=== PATIENT | male | born 1950 | race Caucasian/White ===

== ENCOUNTER 2019-11-09 13:09 | Inpatient (IN) | payer OTHER, MEDICARE ==
[~2019-11-09] VITALS: Ht 182.9 cm; Wt 80.7 kg
[2019-11-09 13:11] VITALS: BP 113/63
[2019-11-09 13:24] LABS: ABSOLUTE NEUTROPHILS 4.2 thou/uL (1.4-8.2); BASOPHILS 0.7 % (0.0-2.0); EOSINOPHILS 8.1 % (0.0-3.0); HEMATOCRIT 39.7 % (42.0-52.0); LYMPHOCYTES 16.3 % (24.0-44.0); MCH 29.4 pg (26.0-34.0); MCHC 32.8 g/dL (28.0-37.0); MCV 89.7 fL (80.0-100.0); MONOCYTES 5.8 % (1.0-8.0); PLATELET COUNT 188 thou/uL (150-400); POLYS 69.1 % (36.0-66.0); RBC 4.42 mil/uL (4.50-6.00); RDW 14.6 % (10.5-14.5); WBC 6.1 thou/uL (4.0-11.0)
[2019-11-09 13:35] LABS: URINE BILIRUBIN NEGATIVE (Negative); URINE BLOOD NEGATIVE (Negative); URINE CLARITY CLEAR; URINE COLOR YELLOW; URINE GLUCOSE-RANDOM* NEGATIVE (Negative); URINE KETONES TRACE (Negative); URINE LEUKOCYTES-REFLEX NEGATIVE (Negative); URINE NITRITE-REFLEX NEGATIVE (Negative); URINE PROTEIN (DIPSTICK) NEGATIVE (Negative); URINE SPECIFIC GRAVITY 1.025 (1.005-1.035); URINE UROBILINOGEN 0.2 E.U./dl (0.2-1.0)
[2019-11-09 13:38] LABS: ANION GAP 8 mmol/L (7-16); BUN 28 mg/dL (7-18); CALCIUM 9.1 mg/dL (8.5-10.1); CHLORIDE 105 mmol/L (98-107); CO2 26 mmol/L (21-32); CREATININE 1.1 mg/dL (0.7-1.3); GLUCOSE 104 mg/dL (74-106); POTASSIUM 4.4 mmol/L (3.5-5.1); SODIUM 139 mmol/L (136-145)
[2019-11-09 13:43] LABS: AMP/METHAMP Negative (Negative); BARBITURATES Negative (Negative); BENZODIAZEPINES Negative (Negative); COCAINE Negative (Negative); METHADONE Negative (Negative); OPIATES Negative (Negative); PCP Negative (Negative)
[2019-11-09 13:52] LABS: ALBUMIN 3.7 g/dL (3.4-5.0); SALICYLATE < 2.8 mg/dL (2.8-20.0); SGOT 13 U/L (15-37); SGPT 6 U/L (30-65); TOTAL BILIRUBIN 0.4 mg/dL (<0.1-1.0); TOTAL PROTEIN 6.5 g/dL (6.4-8.2)
[2019-11-09 14:35] VITALS: BP 105/67
[2019-11-09] MEDS ORDERED: CARBIDOPA-LEVO1 EA10 PO (15:19)
[2019-11-09] MEDS ORDERED: CARBIDOPA-LEVO1 EAC9 PO (15:20)
[2019-11-09] MEDS ORDERED: ENTACAPONE200 M1 PO (15:21)
[2019-11-09] MEDS ORDERED: CLOZAPINE50 MG PO (15:22)
[2019-11-09] MEDS ORDERED: NUPLAZID34 MG PO (15:22)
[2019-11-09] MEDS ORDERED: DILTIAZEM ER180 M2 PO (15:23)
[2019-11-09] MEDS ORDERED: MELOXICAM7.5 MG PO (15:24)
[2019-11-09] MEDS ORDERED: VITAMIN D35000 UNI2 PO (15:25)
[2019-11-09] MEDS ORDERED: FINASTERIDE5 MG PO (15:26)
[2019-11-09] MEDS ORDERED: CELEXA 20 MG TA20 MG PO (15:26)
[2019-11-09] MEDS ORDERED: MELATONIN1 MG/1 ML PO (15:27)
[2019-11-09 15:53] VITALS: BP 160/74
--- NOTE | 2019-11-09 15:58 | NUR ---
PT ARRIVES TO FLOOR VIA WHEELCHAIR FROM ER DEPARTMENT. PER ER RECORDS AND INTAKE ASSESSMENT,JAIL RECORDS PATIENT HAS BEEN INCREASINGLY AGITATED AND COMBATIVE AT [facility]-ATTEMPTING TO ELOPE FROM ER SO BROUGHT TO FLOOR EMERGENTLY. DURING ADMIT INTERVIEW IS RESTLESS AND STATES SEVERAL TIMES HE IS "READY TO GO" BUT IS REDIRECTABLE. GAIT IS STEADY WITHOUT ASSISTIVE DEVICES. MILD HAND TREMOR NOTED. ORIENTED TO NAME ONLY-IDENITFIED MONTH SEPTEMBER-ABLE TO IDENTIFY PRESIDENT. DOES NOT APPEAR TO BE RESPONDING TO INTERNAL STIMULI WHEN ASKED ABOUT A/V HALLUCINATIONS STATES "I DON'T WANT TO GET INOT ALL OF THAT" WHEN ASKED ABOUT INCIDENT LEADING TO ADMIT WHERE HE HAD BEEN AGGRESSIVE TO MALE PEER AGAIN STATES "I DOIN'T WANT TO GET INTO THAT" ADMIT VS OBTAINED AND WNL- NO SKIN BREAKDOWN NOTED DURING ADMIT ASSESSMENT. DENIES C/O PAIN/DISCOMFORT
--- NOTE | 2019-11-09 18:51 | NUR ---
PT HAS BEEN WALKING IN HALLWAYS CARRYING BAG OF BELONGINGS FROM ROOM. IS EASILY REDIRECTABLE AND DID TAKE PO 1900 SINEMET. THIS RN SPOKE WITH PATIENT SON-VAIBHAV BOCANEGRA AT APPROX 1630 AND INFORMATION PROVIDED REGARDING UNIT,VISITING RESTRICTIONS,PHONE NUMBERS CONFIDENTALITY NUMBERS ETC. BP RECHECK AT 1700 146/70
[2019-11-09 18:57] VITALS: BP 140/74
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
[2019-11-10 07:20] VITALS: BP 147/94
--- NOTE | 2019-11-10 08:19 | EKG ---
[facility] [place] [address] ELECTROCARDIOGRAM REPORT Name: EMERSON MCCRACKEN Room #: 523A-A ADM IN M.R.#: [id number] Admission: 11/09/19 Attend Phys: Ab Blanc DO Discharge: Date of : 54 Report #: [id number] THIS REPORT FOR: cc: Albert Carr MD, Bruce E. MD Lundgren,Timothy Machado MD [facility] ~ THIS REPORT FOR: //name// [facility] ED Test Date: 2019-11-09 Test Time: 13:27:59 Pat Name: EMERSON MCCRACKEN Department: Room: [facility] Gender: M Teletypesetter: david : 1950 Requested By: Kahlil Pereyra Order Number: [id number] MD: Timothy Dutta Measurements Intervals [place] Rate: 51 P: 38 MT: 187 QRS: 4 QRSD: 93 T: 18 QT: 455 QTc: 420 Interpretive Statements Sinus bradycardia Otherwise normal tracing No previous ECG available for comparison Electronically Signed On 11-10-2019 8:18:30 CDT by Timothy Dutta [email or web address] <ELECTRONICALLY SIGNED> By: Timothy Dutta MD, FACC 11/10/19 0818 1327 1327 Timothy Dutta MD, [facility] /EPI
[2019-11-10 10:51] VITALS: BP 147/94
--- NOTE | 2019-11-10 13:58 | NUR ---
PATIENT WAS OBSERVED EXIT SEEKING AND ATEMPTING TO FORCE CABINET DOOR OPEN. WHEN CAR FERRIER ASKED PATIENT TO NOT BREAK THE DOOR THE PATIENT GOT ANGRY AND STATED "IM GONNA CALL THE POLICE ON ALL OF YOU FUCKING PEOPLE". PATIENT FOLLOWED CAR FERRIER IF CHARGING AFTER. PATIENT STANDS AT NURSES STATION STARING AT STAFF. DR HERRING NOTIFIED, TALKED WITH PT AND PATIENT LAYS IN BED AND WANTS TO REST FOR A BIT. WILL CONTINUE TO OBSERVE PATIENT FOR FURHER BEHAVIORS.
--- NOTE | 2019-11-10 15:00 | NUR ---
PIERCE spoke with diya ESPOSITO and she reported that pt has had multiple inpt psych stays over the last 6 months. He currently lives at [facility] but has been to [place], [facility] and [facility]. She has concnerns that he will be [facility] but sw adviced that they already reported they would jd ehim back. PIERCE sent updates today and will f/u on Wednesday. PIERCE completed intalke assessment and TP.
--- NOTE | 2019-11-10 15:12 | NUR ---
SW met with shad martinez, pt is confused an unbale to attend group.
--- NOTE | 2019-11-10 17:52 | NUR ---
PATIENT HAS BEEN DIRECTABLE BUT VERY CONFUSED - EARLY THIS MORNING BECAME VERY LETHARGIC AFTER MEDICATION PASS - DAY WORE ON BECAME UNSTEADY WHEN AMBULATING. DR. HERRING PLACED ORDER FOR LAP JORGE LUIS BUT PATIENT WOULD TAKE IT OFF. MEDICATION COMPLIANT - RESPONDS WHEN ADDRESSED. ATE WELL -
[2019-11-10 19:21] VITALS: BP 127/83
--- NOTE | 2019-11-10 22:14 | NUR ---
Pt. ambulating in hallway ad jorden. Gait is slow and shuffling. He stops frequetly to look around and appears confused. He was standing in doorway trying to resnap pants. He could put the steps together to accomplish this but he just didn't have the strenght to complete the snap. He denies SI/HI or any hallucinations. He put himself to bed. No signs or symptoms of of distress noted.
[2019-11-10 23:18] VITALS: BP 127/83
[2019-11-11 07:40] VITALS: BP 129/72
[2019-11-11 10:09] VITALS: BP 129/72
--- NOTE | 2019-11-11 14:23 | NUR ---
PIERCE did a check in with pt instead of group due to COVID-19 guidelines. PIERCE saw he had another pt's watch. SW calmly approached him and asked to hold the watch. He reluctantly gave SW the watch. PIERCE then returned it to the correct pt. SW team will continue to follow pt during his stay on this unit.
[2019-11-11 15:07] VITALS: BP 95/56
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
[2019-11-11 15:22] LABS: ABSOLUTE NEUTROPHILS 3.1 thou/uL (1.4-8.2); BASOPHILS 0.7 % (0.0-2.0); HEMATOCRIT 38.7 % (42.0-52.0); HEMOGLOBIN 12.9 gm/dL (14.0-18.0); LYMPHOCYTES 14.9 % (24.0-44.0); MCH 29.7 pg (26.0-34.0); MCHC 33.4 g/dL (28.0-37.0); MCV 88.9 fL (80.0-100.0); MONOCYTES 6.5 % (1.0-8.0); PLATELET COUNT 184 thou/uL (150-400); POLYS 68.9 % (36.0-66.0); RBC 4.35 mil/uL (4.50-6.00); RDW 14.5 % (10.5-14.5); WBC 4.5 thou/uL (4.0-11.0)
[2019-11-11 15:34] LABS: ALBUMIN 3.5 g/dL (3.4-5.0); ANION GAP 7 mmol/L (7-16); BUN 35 mg/dL (7-18); CALCIUM 9.2 mg/dL (8.5-10.1); CHLORIDE 105 mmol/L (98-107); CO2 27 mmol/L (21-32); CREATININE 1.3 mg/dL (0.7-1.3); GLUCOSE 129 mg/dL (74-106); MAGNESIUM 1.9 mg/dL (1.8-2.4); PHOSPHORUS 4.6 mg/dL (2.5-4.9); POTASSIUM 4.4 mmol/L (3.5-5.1); SGOT 13 U/L (15-37); SGPT < 6 U/L (30-65); SODIUM 139 mmol/L (136-145); TOTAL BILIRUBIN 0.3 mg/dL (<0.1-1.0)
[2019-11-11 15:39] LABS: INR 1.1; PROTIME 11.4 Seconds (9.3-11.4)
[2019-11-11 16:06] LABS: TROPONIN-I <0.06 ng/mL (<0.06)
[2019-11-11 17:00] VITALS: BP 156/99
[2019-11-11 18:58] VITALS: BP 145/81
--- NOTE | 2019-11-11 19:39 | NUR ---
pt admitted to unit from [facility] at 1700 in stable condition. Admission history, assessment and careplan completed.Dr Leonard notified about consult.He came and saw the pt.Order noted.Received call from family,updates given.Assisted pt with tray setup at dinner.Good appetite noted.Bed alarm on for pt safety. Report off to ange rn.
[2019-11-11 20:30] VITALS: BP 141/78
[2019-11-12 00:15] VITALS: BP 150/80
[2019-11-12 04:00] VITALS: BP 150/80; BP 167/89
[2019-11-12 04:45] VITALS: BP 167/89
--- NOTE | 2019-11-12 05:47 | NUR ---
PT REMAINS CONFUSED AND AGITATED AT TIMES SECURITY CALLED THIS AM WHEN PT OUT OF BED AND REFUSED TO FOLLOW DIRECTION. IV REMAIN INTACT AND INFUSING, NO C/O PAIN, PT ABLE TO USE URINAL TO VOID, VSS, NO C/O DIZZINESS, AWAITING PT AND OT EVAL THIS AM WILL CON'T TO MONITOR PER PPOC.
[2019-11-12 07:40] VITALS: BP 170/92
--- NOTE | 2019-11-12 09:58 | EKG ---
[facility] [address] ELECTROCARDIOGRAM REPORT Name: EMERSON MCCRACKEN Room #: 215-P ADM IN M.R.#: [id number] Admission: 11/09/19 Attend Phys: Ab Blanc DO Discharge: Date of : 54 Report #: [id number] THIS REPORT FOR: cc: Albert Carr MD, Bruce E. MD Park, Jin S. MD ~ THIS REPORT FOR: //name// [facility] Test Date: 2019-11-11 Test Time: 16:16:51 Pat Name: EMERSON MCCRACKEN Department: Room: [facility] Gender: M Director Of Category Management: Scarlet DUNCAN : 1950 Requested By: Louise Quach Order Number: [id number] MD: Parker Rose Measurements Intervals [place] Rate: 73 P: 38 AL: 198 QRS: 11 QRSD: 92 T: 21 QT: 389 QTc: 429 Interpretive Statements Sinus rhythm Probable left atrial enlargement Compared to ECG 11/09/2019 13:27:59 Sinus bradycardia no longer present Electronically Signed On 11-12-2019 9:57:04 CDT by Parker Rose [email or web address] <ELECTRONICALLY SIGNED> By: Parker Rose MD 11/12/19 0957 1616 1616 Parker Rose MD /[facility]
[2019-11-12 11:40] VITALS: BP 159/90
[2019-11-12] MEDS ORDERED: MIRALAX17 GM PO (17:14)
== END 2019-11-11 16:43 | disposition short-term general hospital (02) | DRG 57 ==
LOC: ER 13:09 → SBH 14:44 → 2N 14:44 → SBH 14:44 → 2N 11-11 16:43
PROVIDERS: Emergency Medicine; Internal Medicine; Psychiatry & Neurology Psychiatry; ADMIT Psychiatry & Neurology Psychiatry
PROC: 0HQ1XZZ Repair Face Skin, External Approach (ICD-10-PCS; principal; 2019-11-11)
DX: G20 Parkinson's disease (principal); F02.81 Dementia in other diseases classified elsewhere, unspecified severity, with behavioral disturbance; I10 Essential (primary) hypertension; E78.5 Hyperlipidemia, unspecified; E03.9 Hypothyroidism, unspecified; K21.9 Gastro-esophageal reflux disease without esophagitis; G89.29 Other chronic pain; F41.9 Anxiety disorder, unspecified; F32.9 Major depressive disorder, single episode, unspecified; G47.33 Obstructive sleep apnea (adult) (pediatric); N40.0 Benign prostatic hyperplasia without lower urinary tract symptoms; M81.0 Age-related osteoporosis without current pathological fracture; S01.112A Laceration without foreign body of left eyelid and periocular area, initial encounter; S01.511A Laceration without foreign body of lip, initial encounter; M19.90 Unspecified osteoarthritis, unspecified site; G25.81 Restless legs syndrome; I95.9 Hypotension, unspecified; Z91.81 History of falling; Z87.442 Personal history of urinary calculi; Z88.8 Allergy status to other drugs, medicaments and biological substances; Z90.49 Acquired absence of other specified parts of digestive tract; W18.39XA Other fall on same level, initial encounter; Y93.89 Activity, other specified; Y92.89 Other specified places as the place of occurrence of the external cause; Y99.8 Other external cause status
CPT/HCPCS: 10081; 10880

== ENCOUNTER 2019-11-12 16:55 | Inpatient (IN) | payer OTHER, MEDICARE ==
[~2019-11-12] VITALS: Ht 182.9 cm; Wt 74.8 kg
[~2019-11-12 16:55] MED LIST: CARBIDOPA-LEVO1 EA10 PO; CARBIDOPA-LEVO1 EAC9 PO; CELEXA 20 MG TA20 MG PO; CLOZAPINE50 MG PO; DILTIAZEM ER180 M2 PO; ENTACAPONE200 M1 PO; FINASTERIDE5 MG PO; MELATONIN1 MG/1 ML PO; MELOXICAM7.5 MG PO; NUPLAZID34 MG PO; VITAMIN D35000 UNI2 PO
[2019-11-12] MEDS ORDERED: MIRALAX17 GM PO (17:14)
[2019-11-12 17:37] VITALS: BP 160/92
--- NOTE | 2019-11-12 18:18 | NUR ---
ASSUMED CARE OF PT AT 1700. PT BROUGHT TO UNIT ESCORTED BY NURSE AND FOOT TENDER STAFF. PT ASSISTED TO BED AND VITALS WERE OBTAINED. B/P 160/92, O2- 99%, P - 60, T- 97.6, R-16. PT DENIES PAIN, DENIES SI/HI, STATES "EVERY NOW AND THEN" HE EXPERIENCES VH BUT DENIES AT THIS TIME. PT WAS A POOR HISTORIAN AND ALTHOUGH COOPERATIVE, PT WAS CONFUSED AND DROWSY. PT HAS LACERATION ABOVE LEFT EYE DUE TO RECENT FALL. PT ALSO HAS A BRUISING AND SWELLING ON L. SIDE OF LIP. PT ASSISTED WITH PUTTING ON CLOTHING AND TAKEN INTO DINING AREA FOR DINNER. PT AMBULATES INDEPENDENTLY BUT IS UNSTEADY SO HE HAS BEEN ADVISED/ENCOURAGED TO ALWAYS USE THE WALKER. BED ALARM IN PLACE. PHYSICIAN CONTACTED FOR ADMIT AND MEDICATION ORDERS. WILL CONTINUE TO MONITOR.
[2019-11-12 19:41] VITALS: BP 152/92
--- NOTE | 2019-11-13 01:21 | NUR ---
Assumed care on 11/12/19 @ 19:00, in the [facility], sitting on a sofa, with walker nearby. Ambulating with walker periodically, somewhat drowsy and although answers questions, and initiates coversation clearly, needs to be encouraged to use walker to ambulate. Pt noted to make rapid unsteady movement when he stands to amabulate, and to ambulate quickly, with unsteady jerky movements. Admission documents signed and Medication orders aproved by Dr. Flynn. At this writing, reclined in berry chair in the day room with eyes closed, respirations even and unlabored, chair alarm in place and alarmed. Will continue to monitor q 12 minutes for patient safety.
[2019-11-13 04:24] VITALS: BP 152/92
--- NOTE | 2019-11-13 07:10 | NUR ---
PATIENT DISCHARGED FROM ACUTE SETTING PRIOR TO OT EVALUATION COMPLETION.
[2019-11-13 08:31] VITALS: BP 137/85
--- NOTE | 2019-11-13 14:01 | NUR ---
SW met with pt for 1:1 in dining room, he talked about his neck and that he was having a hard time focusing, no gorup due to COVID 19 restrictions
--- NOTE | 2019-11-13 17:33 | NUR ---
PATIENT CARE ASSUMED AT 19:30 TODAY. PATIENT HAS BEEN COMPLIANT WITH MEDICATIONS - UNSTEADY WHEN AMBULATING. NEEDS TO BE REMINDED TO UTILIZE HIS WALKER - MEALS SERVED IN ROOM. SPOKE TO SON TODAY AND CONVERSATION WENT VERY WELL. HAD SEVERAL EPISODES OF DIZZINESS WHERE HAD TO BE ASSISTED TO CHAIR. DR. HENRY WAS AWARE AND ORDERE ORTHOSTATIC BLOOD PRESSURE EVERY 4 HOURS - PATIENT HAS PERIODS OF CONFUSION WHERE HAS DIFFICULTY EXPRESSING HIMESELF TO STAFF. APPEARS TO OCCUR MORE FREQUENTLY AFTER MEDICATION PASSES. ADVISED OF THIS. INDEPENDENT WITH BATHROOM BUT NEEDS MONITORING DUE TO HIS UNSTEADINESS AND HISTORY OF FALLING SEVERAL DAYS AGO. CONTUSION APPEARS TO BE HEALING. STERI STRIPS IN PLACE ABOVE LEFT EYEBROW WITH DRESSING DRY AND NO DISCHARGE EVIDENT. APPLIED GIL HOSE ORDERED TO PATIENT - CONTINUED MONITORING AND ASSESSING PATIENT AND WILL ADDRESS ANY CONCERNS THAT DEVELOP.
[2019-11-13 19:29] VITALS: BP 143/85
--- NOTE | 2019-11-14 02:31 | NUR ---
ASSUMED CAER OF PT AT 1900HRS. PT WAS CALM AND COPERATIVE FOR MOST OF THE SHIFT. FALL PRECAUTION IN PLACE, BUT PT DOES NOT ALWAYS USE WALKER AND NEEDS TO BE REMINDED. PT TOOK ALL PO MEDS WHOLE. PT WAS ABLE TO GET COMFORTABLE AND SLEEP PART OF THE SHIFT. VSS AND NO S/S OF ACUTE DISTRESS. WILL CONTINUE TO MONITOR.
[2019-11-14 08:50] VITALS: BP 163/87
[2019-11-14 10:59] VITALS: BP 163/87
--- NOTE | 2019-11-14 11:20 | NUR ---
PATIENT CARE ASSUMED AT 19:30 PATIENT AFFECT FLAT AND BLUNTED - ANSWERS QUESTIONS ADDRESSED TO HIM HONESTLY BUT RESPONSE VERY SLOW. PATIENT PARTICIPATED IN GROUPS - MEDICATION COMPLIANT AND ATE ALL HIS MEALS -SAT AND WATCHED TV PRIOR TO LUNCH. NO RESTLESSNESS OBSERVED. NEEDS TO BE REMINDED TO UTILIZE WALKER AT TIMES. FORGETS IT AND NEEDS ALLAN ADDRESSED.
--- NOTE | 2019-11-14 14:35 | NUR ---
JEREMIAH sent updates to [facility] on 11/09 and 11/13. Jeremiah spoke with pt's Tutu and Dr Flynn and Tutu reported that she wanted to bring him $$ or candy and Jeremiah reported to her that this was not allowed. Pt is doing much better and will likely d/c next week after meds have been adjusted.
--- NOTE | 2019-11-14 15:28 | NUR ---
SW did a check in with pt instead of group due to COVID-19 guidelines. Pt was talking with nursing staff.
--- NOTE | 2019-11-14 15:29 | NUR ---
SW did a check in with pt instead of group due to COVID-19 guidelines. Pt did not respond when SW spoke to him.
--- NOTE | 2019-11-14 16:15 | NUR ---
PATIENT APPEARS TO BE SHAKING SOMEWHAT MORE THIS AFTERNOON. VERY IMPULSIVE WILL DASH UP FROM SITTING AND RACE ACROSS THE FLOOR WITHOUT HIS WALKER. HAS BEEN ADVISED MULTIPLE TIMES TO UTILIZE WALKER.
[2019-11-14 19:41] VITALS: BP 104/62
--- NOTE | 2019-11-14 20:21 | NUR ---
Assumed care on 11/14/19 @ 1900, seated on a chair in the [facility], requested to have his miriam hose removed, which was done, yellow socks put on. Pleasant affect noted, A&O x 3-4. Cooperative with care, interacting appropriately with staff and peers.
--- NOTE | 2019-11-15 03:55 | NUR ---
Cooperated with assessment, HRRR, Lungs CTA, ABD N x 4Q, reports bm today. Took po meds whole with water. Spo2 assessed @ 0300 while patient was sleeping 96% SpO2 level noted. Awakened once in the night to toilet. Stand by assist only required. Needed to remind to use walker. Will continue to monitor q 12 minutes for patient safety.
[2019-11-15 09:07] VITALS: BP 92/31
--- NOTE | 2019-11-15 12:58 | NUR ---
LABILE MOOD THIS SHIFT.EPISODES OF IRRITABILITY-AGITATION. IN ROOM AT LUNCH TIME AND SPILLED TRAY OF FOOD AND SEVERAL DRINKS ON FLOOR-HOUSEKEEPING HERE TO CLEAN BUT PT REFUSES TO LEAVE ROOM STATING HE HAD "VERY IMPORTANT NOTES" IN ROOM AND DID NOT TRUST ANYONE WITH THEM. RAISED VOICE TO STAFF CROSSES ARMS OVER CHEST AND REFUSING TO MOVE.REAPPROACHED APPROX 15 MIN LATER AND DID RELUCTANTLY FOLLOW VERBAL COMMANDS OF STAFF BUT CONTINUES TO WATCH STAFF CLOSLEY/HYPERVIGILANT. WILL USE ROLLER WALKER AT TIMES BUT PICKS IT UP OR USES BACKWARD-CONTINUES TO BE VERY IMPULSIVE IN MOVEMENT-ABRUPTLY STANDS UP AND WALKS AWAY FROM THIS WET PROCESS OPERATOR VERY RAPIDLY ALMOST TO POINT OF RUN-ALSO HAS BEEN REQUESTING TO USE PHONE FREQUENTLY AND NOTED TO BE WALKING RAPIDLY IN HALLWAYS WITH ONE HAND ON ROLLER WALKER USING CHORDLESS PHONE-DIFFICULT TO REDIRECT AT TIMES. DROOLING ON/OFF PRIOR TO BREAKFAST. SPEECH SLURRED/DIFFICULT TO UNDERSTAND.DENIES C/O PAIN/DISCOMFORT. COMPLIENT WITH TAKING SCHEDULED MEDS SO FAR THIS AM.
--- NOTE | 2019-11-15 14:08 | NUR ---
Pt was sleeping due group time
--- NOTE | 2019-11-15 19:25 | NUR ---
ORTHOSTATIC BP CHECK AT APPROX 1030 LYING BP 108/70 P-58 SITTING BP 110/64 P60 STANDING BP 120/68 P-62. DENIES DIZZINESS UPON ARISING. ALL BLOOD PRESSURES COMPLETED WITH RAJIV CUFF-RIGHT ARM
[2019-11-15 20:05] VITALS: BP 160/95
--- NOTE | 2019-11-16 04:45 | NUR ---
Assumed care on 11/15/19 @ 1900, noted to be ambulating in the wolf trying to go into rooms that are not his, not general rooms, but trying to go into two specific rooms. Repeatedly shown his room and then he repeats the process of trying to access others rooms. Noted to be drooling, however wipes his mouth with a kleenex. Compliant with meds, HRRR, Lung sounds difficult to auscultate due to patient not breathing deeply on assessment. ABD N x 4Q. Ambulates a rapid rate of speed with jerky movements. Only uses the walker occasionally. When reminded to use the walker, ambulates with it not touching the floor as if it is slowing him down. Slept well, all night.
[2019-11-16 04:57] VITALS: BP 160/95
--- NOTE | 2019-11-16 06:11 | NUR ---
slept 7.4 hours
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
[2019-11-16 08:50] VITALS: BP 131/95
[2019-11-16 12:52] VITALS: BP 151/95
--- NOTE | 2019-11-16 12:58 | NUR ---
ASSUMED CARE AT 0700 THIS MORNING. PT. UP AND ATE MEALS ON THE UNIT. HE USES A WALKER WHILE AMBULATING BUT CONSTANTLY LEAVE IT SOMEWHERE AND NEEDS MUCH ENCOURAGEMENT TO USE IT. WHEN HE WALKS, HE WALKS VERY FAST AND LEANS FORWARD SOME WHILE WALKING. AM AFRAID HE WILL FALL AGAIN IF HE DOES NOT USE THE WALKER. SAT ON THE UNIT DURING GROUP THIS MORNING, BUT SAT ON THE PERPHERIAL OF THE UNIT AND DID NOT PARTICIPATE EXCEPT WHEN ONE SONG CAME ON HE WAS NOTED TO BE MOVING IN HIS CHAIR TO THE MUSIC. TOOK HIS MORNING MEDICATIONS WITHOUT ANY PROBLEMS. AFFECT FLAT, MOOD NEUTRAL.
--- NOTE | 2019-11-16 14:23 | NUR ---
Pt was sleeping. No gorups due to covid 19 restrcitions
[2019-11-16 20:00] VITALS: BP 144/66
[2019-11-16 21:00] VITALS: BP 144/60
--- NOTE | 2019-11-16 22:15 | NUR ---
Assumed care of patient this pm shift. Patient is ambulating between his bedroom and the mileu. Patient appears unkept, hair going multiple directions. Patient can answer simple questions. Patient also drooling. Patient denies pain. Patient denies hi/si. Patient is alert to self. Patient is able to follow commands and does not show any signs of aggressive behavior. Patient takes medications whole. Patient needs reinforcement when ambulating to use the walker that is provided. Patient tends to wonder and could be exit seeking. Patients mentation is confused. Patients assessment shows clear breath sounds, active bowel sounds, and s1 s2 heard with auscultation. We will continue to monitor.
[2019-11-17 08:35] VITALS: BP 153/88
[2019-11-17 09:11] LABS: ABSOLUTE NEUTROPHILS 5.1 thou/uL (1.4-8.2); BASOPHILS 0.6 % (0.0-2.0); EOSINOPHILS 4.2 % (0.0-3.0); HEMOGLOBIN 13.9 gm/dL (14.0-18.0); LYMPHOCYTES 12.2 % (24.0-44.0); MCH 29.9 pg (26.0-34.0); MCHC 33.2 g/dL (28.0-37.0); MONOCYTES 6.2 % (1.0-8.0); PLATELET COUNT 180 thou/uL (150-400); POLYS 76.8 % (36.0-66.0); RBC 4.66 mil/uL (4.50-6.00); RDW 14.4 % (10.5-14.5); WBC 6.7 thou/uL (4.0-11.0)
[2019-11-17 09:23] LABS: ALBUMIN 3.9 g/dL (3.4-5.0); CALCIUM 9.4 mg/dL (8.5-10.1); CREATININE 1.1 mg/dL (0.7-1.3); POTASSIUM 4.3 mmol/L (3.5-5.1); TOTAL BILIRUBIN 0.6 mg/dL (<0.1-1.0); TOTAL PROTEIN 6.5 g/dL (6.4-8.2)
--- NOTE | 2019-11-17 09:38 | NUR ---
Sw completed chart review and pt continues to have aggressive behaviors.
[2019-11-17 11:09] VITALS: BP 153/88
--- NOTE | 2019-11-17 13:33 | NUR ---
SW met with pt while he was walking the hallways, and he reported that he needed to get to the 3rd floor. Sw advised him that he cici be leaving but to his NH when his Dr ordered it. Pt seemed frustrated with this anser. Sw attmpteed to redirect him. No group due to COVID 19 restrictions.
--- NOTE | 2019-11-17 13:44 | NUR ---
Assumed care this morning around 0700. Patient very agitated this morning. He is not happy that he ws woken up to get up for breakfast. Pt very unstable gait. High fall risk with impaired judgement.Using walker around the unit. Patient is on lactulose so he has the urge to go to the bathroom so often. Patient took medications and diet. More pleasant this afternoon, he is so interested to talking to staff now. informed his mood changes how he was in the morning and how he is this afternoon. Will continue with t he plan of care.
--- NOTE | 2019-11-17 14:55 | NUR ---
Jeremiah sent updates to cynthia christian
--- NOTE | 2019-11-17 16:28 | NUR ---
Pt changed from being jovial to agitated and aggressive with staff. Walking around the unit nonstop and opening the other patients rooms. Dr. Flynn ordered Ativan oral but the patient refused. Ativan IM was ordered and given with security around. Later patient sat at the activity room. Impaired judgement making more at risk of falls. Will continue to monitor.
[2019-11-17 20:27] VITALS: BP 112/68
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
[2019-11-18 09:04] VITALS: BP 136/77
[2019-11-18 10:35] VITALS: BP 136/77
--- NOTE | 2019-11-18 12:57 | NUR ---
1100 Lying supine in bed, sleeping. Orienated to self only. States he is in an [employer] unit when asked location. States correctly that it is Wednesday but then states month is March. Denies SI/HI. Able to ambulate with walker with fast, unsteady gait, needs supervision. Needs frequent redirection with staying seated, not moving impulsively, sitting upright. Remains under 1:1 supervision. Laceration with steristrips per L alevism. Breath sounds clear t/o, bilaterally equal. Reg HR ausculated. Color pale pink with brisk capillary refill and palpable peripheral pulses. Brief dry. Active bowel sounds over soft, flat abdomen. Compliant with meds, takes whole. 1315 Being showered by GRADER MARKER. Laceration covered with gauze and plastic for duration of shower to protect steristrips.
--- NOTE | 2019-11-18 13:44 | NUR ---
0900 PATIENT REFUSED TO PARTICIPATE IN ANY GROUPS.
[2019-11-18 19:30] VITALS: BP 154/99
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
[2019-11-19 08:49] VITALS: BP 159/92
--- NOTE | 2019-11-19 15:30 | NUR ---
Patient had 1 to 1 sitter during shift. Ate breakfast in bed. Toileted with assistance. Ambulated around the unit with staff x 3 on hift. Talked with family on phone. A couple of times tried to spit out his pills, assisted to take pills. While up ambulating needed reminding to open his eyes. A couple of times was low level combative with pill administration. Took all of his pills. Nurse updated son on his condition. He does not initiate conversation. When back to bed easily fell asleep. No BM reported on dayshift.
[2019-11-19 19:44] VITALS: BP 159/106
--- NOTE | 2019-11-20 03:29 | NUR ---
ASSUMED CARE OF PT AT 1900HRS. PT WAS AGITATED AND UNCOOPERATIVE THIS SHIFT. 1:1 WATCH CINTINUED AND IS MUCH NEEEDED. PT WAS ABLE TO TAKE ALL HS MEDS CRUSHED WITH ICE CREAM. PT WAS GIVEN IM ATIVAN FOR AGITATION. PT WAS ABLE TO GET COMFROTABLE AND SLEEP PART OF THE SHIFT. NO SI/HI/AH/VH NOTED. VSS AND NO S/S OF AVUTE DISTRESS. WILL CONTINUE TO MONITOR.
[2019-11-20 09:09] VITALS: BP 154/88
--- NOTE | 2019-11-20 11:38 | NUR ---
ASSUMED CARE AT 0700 THIS MORNING. PT. IN HIS BED, SLEEPING. HE CONTINUES TO BE ON 1:1. SITTER IS BY HIS SIDE. PT. AWAKENED BY THIS RN AND GIVEN HIS MEDICATIONS, CRUSHED AND IN ICE CREAM. HE ATE ALL THE ICE CREAM. HE WAS GOTTEN UP AND IN A W/C. HE WAS TAKEN TO THE DINING ROOM FOR BREAKFAST. HE TOOK ALL HIS BREAKFAST AND THREW IT ACROSS THE ROOM. OATMEAL WAS IN FRONT OF SOFAS, THE PEACHES WAS BETWEEN TABLES ACROSS THE ROOM. WHEN ASKED ABOUT THIS, HE SAID, "HE DID IT!!" SECURITY WAS CALLED UP TO THE FLOOR. PT. PLACED BACK IN BED. HE CALMED DOWN SOON HE GOT IN BED. WAS PREPARING A ATIVAN SHOT FOR HIM, BUT HE DID NOT RECEIVE IT AT THIS TIME.
[2019-11-20 11:44] VITALS: BP 154/88
--- NOTE | 2019-11-20 14:56 | NUR ---
Pt was agitated and not approachable today. No group due to COVID 19 restrictions
--- NOTE | 2019-11-21 05:49 | NUR ---
Assumed care on 11/20/19 @ 1900, one on one sitter while awake. Is a high fall risk due to impulsive ambulation and jerky movements. Cooperated with assessment and compliant with medications. Took meds crushed in pudding, ate the entire pudding cup. Able to swollow the no crush meds with pudding. Incontinent of urine, provided incontinent care and linnens and clothes changed. Bed in low position, bed alarm set when patient went to sleep and one on one sitter relieved of duty.
[2019-11-21 09:32] VITALS: BP 141/92
--- NOTE | 2019-11-21 14:59 | NUR ---
PIERCE sent updates to Fredis christian
--- NOTE | 2019-11-21 17:51 | NUR ---
Lying supine in bed without s/o distress. Some confused speech. Orientated to self only. No speech or behaviour suggestive of SI/HI. Appears to sleep most of the morning but did get up to bathroom impulsively. Breath sounds clear t/o, bilaterally equal. Reg HR auscultated. Color pale pink with brisk capillary refill and palpable peripheral pulses. Incontinent of large amt yellow urine in brief and bed. Active bowel sounds over soft, flat abdomen. 1400 Up to table for lunch. Able to sit upright but keeps eyes closed and refusing to eat. Dr. Flynn examining pt. Will hold all meds per order. 1800 More awake. Ate most of dinner with assistance of DREDGE OPERATOR SUPERVISOR. Gave MOM d/t no BM since 11/15. Spit most out. Sleeping in room without s/o distress.
[2019-11-21 19:45] VITALS: BP 112/79
--- NOTE | 2019-11-22 04:36 | NUR ---
Assumed care of pt @ 1900. Pt calm this shift but hard to redirect or assist when attempting to get out of bed. Pt refused HS medications et became agitated when pressed to take his meds. Pt ambulates in room with assist of one to toilet. Pt currently on one to one due to aggressive behavior though pt did not display aggression this shift. VSWNL. Health assessment with no abnormalities other than previously noted. Unable to assess SI/HI due to uncooperative nature this shift. Pt unable to verbalize needs this shift et grunted at staff instead of using words. Currently resting in bed with eyes closed. Will continue to monitor per protocol.
[2019-11-22 08:00] VITALS: BP 152/102
--- NOTE | 2019-11-22 10:54 | NUR ---
Date of Admission: 11/12/19 Date of Activity Therapy Assessment: 11/15/19 Activity Goal: Reality orientation, impulse control Initial Goal: 2 Group activities/day Weekly progress towards goal: On track Group participation level: Moderate Behaviors observed: Pt displaying inconsistent participation. He is often restless and has difficulty remaining in group- leaving to walk hallway and then returns. Participation has regressed over the last 2 days. Plan: No change towards goal
[2019-11-22 12:00] VITALS: BP 142/97
--- NOTE | 2019-11-22 14:03 | NUR ---
PT RETURNED FROM CT IN STABLE CONDITION AND ATE LUNCH AROUND 1200.DR BYRD NOTIFIED ABOUT BP POST AM MED.ORDER NOTED.NORVASC PO GIVEN WITH CABIDOPA/LEVODOPA AT 1300.AROUND 1330.PT WAS AGITATED WHEN SUPPLIER SPECIALIST CAME TO DRAW BLOOD.RN TOLD SUPPLIER SPECIALIST TO STOP NEEDLE STICK AND CAOME BACK LATER. 10 MINUTES LATER,PT WAS AGRESSIVE AND KICKING PRIMER POWDER BLENDER WET SITTING WITH HIM.PRIMER POWDER BLENDER WET CALLED OUT FOR HELP AND 3RN RAN TO PT ROOM FOR ASSISTANCE BUT SECURITY HAS TO BE CALLED FOR BACKUP.DR RIVERA NOTIFIED,ROUNDED ON PT AND ORDER NOTED.GEODON IM GIVEN WITH RELIEF.WILL CONTINUE TO MONITOR.
[2019-11-22 14:49] LABS: ABSOLUTE NEUTROPHILS 4.4 thou/uL (1.4-8.2); BASOPHILS 0.3 % (0.0-2.0); EOSINOPHILS 1.7 % (0.0-3.0); HEMATOCRIT 46.2 % (42.0-52.0); HEMOGLOBIN 15.4 gm/dL (14.0-18.0); LYMPHOCYTES 14.9 % (24.0-44.0); MCH 30.3 pg (26.0-34.0); MCHC 33.2 g/dL (28.0-37.0); MONOCYTES 9.1 % (1.0-8.0); PLATELET COUNT 204 thou/uL (150-400); RBC 5.08 mil/uL (4.50-6.00); RDW 14.2 % (10.5-14.5)
[2019-11-22 15:00] LABS: ALBUMIN 4.2 g/dL (3.4-5.0); CALCIUM 9.8 mg/dL (8.5-10.1); CREATININE 1.1 mg/dL (0.7-1.3); POTASSIUM 4.4 mmol/L (3.5-5.1); TOTAL BILIRUBIN 0.5 mg/dL (<0.1-1.0); TOTAL PROTEIN 6.6 g/dL (6.4-8.2)
[2019-11-22 20:21] VITALS: BP 156/98
--- NOTE | 2019-11-23 00:35 | NUR ---
NATURAL GAS PLANT SUPERVISOR ACTIVATED FOR DECREASED LOC. VS STABLE AND PATIENT RESISTANT TO ASSESSMENTS. NO UNILATERAL DEFICITS NOTED. CARBON BRUSHER ASSEMBLER ROUNDED ON PT WITH NEW LAB ORDERS ENTERED. PT TO REMAIN ON THE UNIT.
[2019-11-23 05:59] VITALS: BP 156/98
--- NOTE | 2019-11-23 06:10 | NUR ---
Assumed care on 11/22/19 @ 1900, in bed with 1:1 sitter at bedside. Assessment done with pt sleeping, HRRR, Lungs CTA, ABD N x 4 Q. Incontinent of urine x3, taken to the toilet x1 and he was not able to urinate into the urinal for a UA sample. Would not awaken to take meds @ 2200. Meds given @ 2300 when up the the toilet. @0355, Staff sitting 1:1 and pt sitting on the side of the bed, staff asked if he is wanting to go to the toilet, she stepped up physically close enough to assist pt to stand and ambulate to the toilet. Pt stood up abruptly and swung his fist at staff, then sat on the floor from the momentum of his swing, sitting near the bed. Staff explains that she was standing next to him, but leaned back when he swung his fist and was not close enugh to be able to catch pt from falling.
--- NOTE | 2019-11-23 06:53 | NUR ---
PATIENT COMBATIVE AND KICKING AND SWINGING AT STAFF CALLED AND RECEIVED ORDER FROM IAM SINGER NP FOR GEODON 10MG IM GIVEN IN LEFT DELTOID. NEW ORDER FOR LAP JORGE LUIS WHEN UP IN CHAIR GIVEN ALSO. PATIENT SITTING IN IN RECLINER WITH CHAIR ALARM AND LAP JORGE LUIS ON COMFORTABLY. PATIENT SLEEPING AT THIS TIME.
[2019-11-23 07:50] VITALS: BP 84/52
--- NOTE | 2019-11-23 08:30 | NUR ---
PT HAS 1:1 CARE FOR SAFETY. PT VERY UNSTEADY ON HIS FEET. PT HAS EYES CLOSED. PT IN RECLINER WITH HIS HEAD BACK RESTING.
[2019-11-23 09:45] VITALS: BP 84/52
--- NOTE | 2019-11-23 09:50 | NUR ---
PT HAVING EEG DONE AT THIS TIME. PT TOLERATING TEST.
--- NOTE | 2019-11-23 12:00 | NUR ---
PT BEING FEED SOME LUNCH. PT HAS EYES OPEN DURING THIS TIME.
[2019-11-23 12:10] LABS: HEMOGLOBIN 15.5 gm/dL (14.0-18.0); MCH 30.1 pg (26.0-34.0); MCHC 33.7 g/dL (28.0-37.0); MCV 89.4 fL (80.0-100.0); RBC 5.14 mil/uL (4.50-6.00); RDW 14.2 % (10.5-14.5); WBC 8.3 thou/uL (4.0-11.0)
[2019-11-23 12:29] LABS: CREATININE 1.1 mg/dL (0.7-1.3); MAGNESIUM 2.2 mg/dL (1.8-2.4); POTASSIUM 4.4 mmol/L (3.5-5.1); TOTAL BILIRUBIN 0.3 mg/dL (<0.1-1.0); TOTAL PROTEIN 7.1 g/dL (6.4-8.2)
--- NOTE | 2019-11-23 13:37 | NUR ---
I helped staff when needed for 1:1 with Lizzy. He sat quietly, with his eye closed. He has a lap yevgeniy in place and would tug at the lap yevgeniy twice during a thirty minute period. Nicola did appear to be hallucinating, as evidenced by whispering to someone who was not present and grabbing a items in the air. He continues to be 1:1
--- NOTE | 2019-11-23 14:25 | NUR ---
Pt was sleeping all day. No groups due to COVID 19 restrictions
--- NOTE | 2019-11-23 14:30 | NUR ---
PLACED CONDOM CATH ON PT. XRAY WAS HERE TO GET IMAGE OF CHEST AND ABD. PT GRABBING STAFF HANDS AND TRYING TO BITE. PT KEPT EYES CLOSED DURING TRANSFER. PT LEGS AND ARMS NEEDED HELD DURING XRAY.
[2019-11-23 16:59] VITALS: BP 119/80
--- NOTE | 2019-11-23 17:01 | NUR ---
BLADDER SCANNED PT WHILE HE WAS IN RECLINER. PT TOLERATED PROCEDURE. PT BP RECHECKED FROM BEING LOW THIS AM. PT GIVEN WATER AND STRAWBERRRY ICE CREAM, PT DIDN'T WANT ANY ICE CREAM OR WATER. PT DID TAKE SIPS OFF THE ORAL SPONGE, PT COUGHED. PT BLADDER SCAN SHOWED OVER 244ML IN BLADDER. PT DID TALK TO TANVIR ON PHONE, HE WAS UNABLE TO COMPLETE SENTANCES, SAID HE LIKED PORK CHOPS.
--- NOTE | 2019-11-23 18:00 | NUR ---
ADM DULCOLAX 10MG SUPP X1 PER ORDERS. PT DID HAVE RESULTS OF CONDOM CATH, CLEAR YELLOW URINE. PT SITTING IN RECLINER AND EYES ARE OPEN. PT DIDN'T ANSWER WHEN THIS UNDERGROUND PRODUCTION FOREPERSON ASKED IF HE WAS FEELING BETTER.
[2019-11-23 18:49] LABS: URINE BILIRUBIN NEGATIVE (Negative); URINE BLOOD NEGATIVE (Negative); URINE CLARITY CLEAR; URINE COLOR YELLOW; URINE GLUCOSE-RANDOM* NEGATIVE (Negative); URINE KETONES TRACE (Negative); URINE LEUKOCYTES NEGATIVE (Negative); URINE NITRITE NEGATIVE (Negative); URINE PROTEIN (DIPSTICK) NEGATIVE (Negative); URINE SPECIFIC GRAVITY 1.025 (1.005-1.035); URINE UROBILINOGEN 0.2 E.U./dl (0.2-1.0)
[2019-11-23 19:47] VITALS: BP 144/94
--- NOTE | 2019-11-24 04:57 | NUR ---
Assumed care of pt @ 1900. Pt calm et cooperative this shift. Took medications whole without difficulty. Rested in recliner in dayroom most of shift. VSWNL. Health assessment with no abnormalities other than previously noted. Unable to assess SI/HI due to pt's confused state @ present time. Currently resting in recliner in dayroom with eyes closed. Will continue to monitor per protocol.
[2019-11-24 05:35] LABS: HEMATOCRIT 46.5 % (42.0-52.0); HEMOGLOBIN 15.8 gm/dL (14.0-18.0); MCH 30.6 pg (26.0-34.0); RBC 5.17 mil/uL (4.50-6.00); WBC 10.3 thou/uL (4.0-11.0)
[2019-11-24 05:41] LABS: CALCIUM 9.8 mg/dL (8.5-10.1); MAGNESIUM 2.1 mg/dL (1.8-2.4); POTASSIUM 4.2 mmol/L (3.5-5.1)
[2019-11-24 08:15] VITALS: BP 137/86
[2019-11-24 08:30] VITALS: BP 137/86
--- NOTE | 2019-11-24 08:52 | NUR ---
PT OUT IN DINING ROOM IN RECLINER. HAS 1:1 NURSING CARE DUE TO FALL RISK. PT MORE ALERT TODAY WITH EYES OPEN. PT TOOK MEDS WHOLE. PT WAS CHEWING AND DRINKING WATER. PT HAS COUGH AFTER INGESTION OF FOOD AT TIMES. PT NOT VERY TALKATIVE. PT HAD YOGART AND JUICE FOR BREAKFAST.
--- NOTE | 2019-11-24 09:15 | NUR ---
ASSISTED 1:1 AIDE CHANGE PT PANTS. PT WAS INCON. OF URINE AND HAD SMEAR OF STOOL ON BRIEF. PT ABLE TO STAND-UP WITH ASSIST. PT DID HAVE TENDACY TO LEAN FORWARD. PT SAT BACK DOWN IN RECLINER AND WHEELED BACK TO DINING ROOM.
[2019-11-24 12:15] VITALS: BP 140/87
--- NOTE | 2019-11-24 12:15 | NUR ---
PT OUT IN DINING ROOM. PT DID EAT SOME BITES OF MASHED POTATOES. PT SLEEPING AND DR. BYRD WAS HERE. PT NOT WAKING UP EXCEPT FOR PAINFUL STIMULUS. PT DID SAY IT HURT WHEN PINCHING ON SHOULDER. VS ACQUIRED 140/87, 94, 16, 96%.
[2019-11-24] MEDS ORDERED: EXELON1 EAC2 TRANSDERM (15:14)
[2019-11-24] MEDS ORDERED: METOPROLOL SUCC25 M1 PO (15:15)
[2019-11-24] MEDS ORDERED: LACTULOSE20 GM/30 M PO (15:17)
--- NOTE | 2019-11-24 15:35 | NUR ---
DR. HERRING TALKED TO FAMILY ABOUT MEDICAL ISSUES WITH PT. PT WILL TRANSFER TO MEDICAL FLOOR FOR FURTHER OBSERVATION. PT WAS ABLE TO WAKE UP WHEN MILKA BOB CAME OVER TO ASSESS HIM. PT OPENED EYES AND WAS LAUGHING AT DR. HERRING. PT THEN CLOSED EYES AND IS RESTING. PT HAS STRONG PROGRAMMING INTERN TO UPPER EXT.
--- NOTE | 2019-11-24 16:00 | NUR ---
PT DRANK 2 GLASSES OF WATER AND ALSO DRANK AN ENSURE. PT IS WAKING UP.
--- NOTE | 2019-11-24 17:32 | NUR ---
PT TOOK SINEMET MEDICATION AND DRANK WATER. PT GRABBING AT NURSES WRIST. PT ATE 100% OF PUDDING.
--- NOTE | 2019-11-24 18:11 | NUR ---
ATTEMPTED TO GIVE REPORT AROUND 1630, NURSE WAS HAVING TWO DISCARGES. SPOKE TO FRANCIS ABOUT HIM TRANSFERING TO MED SURG. PT IS SLEEPING IN RECLINER AGAIN. SHE DECLINED TO TALK TO HIM DUE TO HIM SLEEPING. SHE STATED SHE WILL CALL BACK AROUND 1999.
--- NOTE | 2019-11-24 19:30 | NUR ---
TRANSFERED PT TO ROOM 446. PT WAS ABLE TO STAND UP WITH ASSIST. PT STATED HE NEEDED TO USE BATHROOM. PT DRESSED IN GOWN AND VS TAKEN. GAVE BEDSIDE REPORT TO NIGHT RN.
--- NOTE | 2019-11-29 12:53 | HC ---
[facility] [place] [address] CONSULTATION Name: EMERSON MCCRACKEN JR Room #: 528B-B DIS IN M.R.#: [id number] Admission: 11/12/19 Attend Phys: Za Flynn MD Discharge: 11/24/19 Date of : 54 Report #: [id number] THIS REPORT FOR: cc: Albert Carr MD,Dwaine Aguillon MD, MD ~ CC: Albert Flynn HISTORY OF PRESENT ILLNESS: This is a 69-year-old male patient who was evaluated by me for the possibility of seizure. This patient provides no history. He is sedated. He will not wake up and will not do anything for me. I talked to the nurses looking after this patient and I reviewed the notes in the computer. Dr. Flynn's detailed note was seen and there has been a suspicion for a seizure in this patient. This patient's EEG was reviewed and that does not show any epileptiform activity, but EEG is notoriously insensitive to machine operator hop picker seizure activity in these circumstances. REVIEW OF SYSTEMS: Positive for Parkinson disease. There also has been question of Lewy body dementia, but this patient's Parkinson disease is longstanding. In any event, this patient has a pretty significant psychosis and he is being managed by medication. It looks like he has tried Nuplazid for the psychosis and that worked the best for him, but history is poor in that regard. The patient has been in the psychiatric facility for some time. He is being followed by both Internal Medicine as well as Psychiatric Care. He did have a recent CT scan of the head, which I reviewed and that does not show any acute process. A 14-point review of system is from the record and is summarized as above. PAST MEDICAL HISTORY: Positive for Parkinson disease. FAMILY HISTORY: Unavailable. SOCIAL HISTORY: Also unavailable. PHYSICAL EXAMINATION: No exam was possible because the patient did not wake up. He was sitting in the chair. He would not open the eyes. He has no meningeal sign. Cardiac examinations appear unremarkable. No respiratory difficulty was noticed. White count is normal at 8.3. The patient is a reasonably well-developed individual. His blood pressure is 84/52, respirations 14, pulse is 82, temperature is 98.7. IMPRESSION: Pretty difficult to form in this patient. Since there has been a question of seizure in this patient and he is already on Depakote, I think we can gradually increase his dose by close monitoring of ammonia, liver function and platelet to see if that makes any difference. That will help his psychiatric issue and may help seizure if he has one. Seizure is possible, but [facility] [address] [facility] [place] [address] CONSULTATION Name: KAYKAYEMERSON JR Room #: 528B-B DIS IN M.R.#: [id number] Admission: 11/12/19 Attend Phys: Za Flynn MD Discharge: 11/24/19 Date of : 54 Report #: [id number] it will be difficult to confirm or rule it out. His psychosis is pretty uncontrolled and if Nuplazid has been effective that can be tried if we can get it here. His TSH was normal some time ago and I will just add a B12 level and we will ask Dr. Rodriguez to follow up this patient and hopefully, he will be more alert to examine and see if she has any further suggestion. She has seen this patient in the past. <ELECTRONICALLY SIGNED> By: Dwaine Vasques MD 11/29/19 1253 [id number] 1459 Dwaine Vasques MD /nt
--- NOTE | 2019-11-29 12:54 | EEG ---
[facility] [place] [address] ELECTROENCEPHALOGRAM Name: EMERSON MCCRACKEN JR Room #: 528B-B DIS IN M.R.#: [id number] Admission: 11/12/19 Attend Phys: Za Flynn MD Discharge: 11/24/19 Date of : 54 Report #: [id number] THIS REPORT FOR: //name// CC: Albert Flynn DATE OF SERVICE: 11/23/2019 This patient is being evaluated for the possibility of seizure. EEG was done by placing the electrode by standard 10-20 system of electrode placement. Both referential and sequential montages were used for recording. Background activity in this patient's EEG is about 7 Hz and 30 microvolts. Photic stimulation is unremarkable. This patient became drowsy and that is associated with bilateral slowing and vertex sharp waves. Throughout the record, no active epileptiform activity was noticed. IMPRESSION: This is an abnormal EEG because it is disorganized and poorly formed. That is a nonspecific abnormality, which can occur with encephalopathy, effect of psychotropic medication, dementia, etc. No active epileptiform activity was noticed. <ELECTRONICALLY SIGNED> By: Dwaine Vasques MD 11/29/19 1254 [id number] 1402 Dwaine Vasques MD /nt
== END 2019-11-24 19:32 | disposition short-term general hospital (02) | DRG 57 ==
LOC: SBH 16:55
PROVIDERS: Internal Medicine; ADMIT Psychiatry & Neurology Psychiatry
DX: G20 Parkinson's disease (principal); F02.81 Dementia in other diseases classified elsewhere, unspecified severity, with behavioral disturbance; G93.40 Encephalopathy, unspecified; I10 Essential (primary) hypertension; N40.0 Benign prostatic hyperplasia without lower urinary tract symptoms; K21.9 Gastro-esophageal reflux disease without esophagitis; Z88.1 Allergy status to other antibiotic agents; Z88.8 Allergy status to other drugs, medicaments and biological substances; Z79.899 Other long term (current) drug therapy
CPT/HCPCS: 10880

== ENCOUNTER 2019-11-24 16:43 | Inpatient (IN) | payer OTHER, MEDICARE ==
[~2019-11-24 16:43] MED LIST changes: +EXELON1 EAC2 TRANSDERM; +LACTULOSE20 GM/30 M PO; +METOPROLOL SUCC25 M1 PO; +MIRALAX17 GM PO
[2019-11-25 04:22] VITALS: BP 137/85
[2019-11-25 07:58] VITALS: BP 142/91
--- NOTE | 2019-11-25 08:22 | NUR ---
PT WAS ADMITTED TO THE UNIT AT APPROX 1930.ADMISSION HX,EDU AND ASSESSMENT COMPLETED WITH THE HELP OF PT'S .PT LETHARGIC ON ADMISSION BUT THE NIGHT WENT BY,HE BECAME MORE AWAKE.PT IMPULSIVE,SITTER IN ROOM.IV PLACED TO HIS LFA,PT PULLED IV OUT,AM NURSE AWARE.REPORT TO AM NURSE.FALL PRECAUTIONS AND CALL LIGHT IN PLACE.
[2019-11-25 09:53] LABS: ABSOLUTE NEUTROPHILS 6.5 thou/uL (1.4-8.2); BASOPHILS 0.5 % (0.0-2.0); EOSINOPHILS 1.7 % (0.0-3.0); HEMATOCRIT 42.4 % (42.0-52.0); HEMOGLOBIN 14.3 gm/dL (14.0-18.0); LYMPHOCYTES 8.5 % (24.0-44.0); MCH 30.3 pg (26.0-34.0); MCHC 33.8 g/dL (28.0-37.0); MCV 89.7 fL (80.0-100.0); MONOCYTES 9.4 % (1.0-8.0); PLATELET COUNT 195 thou/uL (150-400); POLYS 79.9 % (36.0-66.0); RBC 4.73 mil/uL (4.50-6.00); RDW 14.1 % (10.5-14.5); WBC 8.1 thou/uL (4.0-11.0)
[2019-11-25 10:01] LABS: CALCIUM 9.4 mg/dL (8.5-10.1); CREATININE 1.1 mg/dL (0.7-1.3); POTASSIUM 3.4 mmol/L (3.5-5.1)
[2019-11-25 15:00] VITALS: BP 142/65
--- NOTE | 2019-11-25 16:16 | NUR ---
PT A&OX2, VSS, NO APPARENT PAIN. PATIENT IMPULSIVE AND HASE 1:1 SITTER. NEW IV PLACED. PATIENT RESTING IN BED AND RECLINER TODAY. IV FLUIDS RUNNING. NO SIGNS OF DISTRESS. WILL CONTINUE TO MONITOR.
[2019-11-25 19:03] VITALS: BP 143/84
--- NOTE | 2019-11-26 04:24 | NUR ---
Pt. rested quietly at short intervals during the night when checked on during frequwent rounds. He is alert, but confused. Pt. can be impulsive at times. Pt. is with a 1:1 sitter. Security called one time as pt. was becoming very beligerant as he would not leave the bathroom after being in there for awhile. Incontinent of urine and campos care given.
[2019-11-26 06:51] LABS: HEMATOCRIT 38.8 % (42.0-52.0); MCHC 33.5 g/dL (28.0-37.0); MCV 89.5 fL (80.0-100.0); RBC 4.34 mil/uL (4.50-6.00); RDW 13.7 % (10.5-14.5); WBC 5.4 thou/uL (4.0-11.0)
[2019-11-26 07:00] LABS: CALCIUM 9.2 mg/dL (8.5-10.1); CREATININE 0.9 mg/dL (0.7-1.3); MAGNESIUM 1.9 mg/dL (1.8-2.4)
[2019-11-26 08:10] VITALS: BP 133/71
[2019-11-26 11:56] LABS: TSH 0.374 uIU/mL (0.358-3.740)
--- NOTE | 2019-11-26 13:20 | NUR ---
PT CARE ASSUMED AT 1300. A&Ox4. UP AT KIKI IN THE ROOM. PT PAIN CONTROLLED WITH PAIN MEDICATION. EDUCATED ON SWITCHING IV PAIN MEDS OVER TO PO SINCE HE WILL NOT BE ABLE TO DISCHARGE HOME ON IV MEDS. AWAITING TOLERENCE OF FOOD ON PT BOWELS. BOWELS ARE HYPOCATIVE INTICIPATED BY JUST STARTING ON FOOD. FLUIDS INFUSING. IV PATENT WITH NO REDNESS OR SWELLING. DIET IS GLUTEN FREE. CALL LIGHTIN REACH. WILL CONTINUE TO MONITOR.
--- NOTE | 2019-11-26 16:15 | NUR ---
ASSUMED CARE AT 0700. PT SLEEPING THIS AM. SITTER AT BEDSIDE. NO COMPLAINTS. PT COOPERATIVE DURING DAY. 1600 PT INCREASED LEVEL OF CONFUSION AND STARTING TO WANT TO GET UP AND WANDER AROUND. WILL CONTINUE TO MONITOR. LFA PIV RUNNING NO COMPLICATIONS.
[2019-11-26 17:00] VITALS: BP 131/64
[2019-11-26 19:35] VITALS: BP 143/69
--- NOTE | 2019-11-27 05:51 | NUR ---
PT ALERT TO SELF. MUMBLES,DIFFICULT TO UNDERSTAND. VERY IMPULSIVE. SITTER IN ROOM. PT PULLING AT IV TUBING WHENEVER HE IS CONNECTED TO FLUIDS, SO BEEN CONNECTING HIM TO FLUIDS ON AND OFF. PIV TO LFA WRAPPED AND THEREFORE INTACT.PT AFEBRILE.SITTER IN ROOM.PT BEEN RESTLESS THRO THE NIGHT BUT NOT AGGRESSIVE OR COMBATIVE.WILL CONTINUE WITH POC TILL EOS.
--- NOTE | 2019-11-27 10:36 | NUR ---
ASSUMED CARE AT 0700. PT LYING IN BED, CALM, ALERT, ASKING ABOUT HIS DOG. NO COMPLAINTS AT THIS TIME. SITTER AT BEDSIDE. APPEARS TO BE DOING WELL THIS AM. RA TRINO. PIV IN PLACE WITHOUT ISSUES. WILL CONTINUE TO MONITOR
[2019-11-27 11:16] VITALS: BP 129/63
[2019-11-27] MEDS ORDERED: TRAMADOL 50 MG50 MG PO (11:25)
[2019-11-27] MEDS ORDERED: MIRALAX17 GM PO (11:25)
[2019-11-27] MEDS ORDERED: NORCO 5-325 TA1 EAC1 PO (11:25)
[2019-11-27] MEDS ORDERED: ACETAMINOPHEN325 M1 PO (11:25)
--- NOTE | 2019-11-27 11:55 | NUR ---
PT ADMITTED TO ACUTE FLOOR RELATED TO DEMENTIA,PARKINSONS,HTN FROM [address] CM REVIEWED CHART AND SPOKE WITH CARE TEAM. CARE TEAM INDICATED THAT PT IS MEDICALLY STABLE TO DISCHARGE BACK TO [address] THIS DAY. CM CALLED PT'S DPOA SISTER IN [place] AND HIS SPOUSE WHO STATED THAT SHE WOULD NOTIFY PT'S SON SAHRA . THEY ARE ALL AWARE AND AGREEABLE WITH PT DISCHARGING TO [address] [place] [address] AT [facility]. CHART COPY ORDERED. NO OTHER CM INTERVENTION INDICATED. CASE CLOSED.
[2019-11-27 12:31] VITALS: BP 147/88
--- NOTE | 2019-11-27 13:07 | NUR ---
DISCHARGE: GAVE REPORT TO RN ON 5S. PT ALERT. PIV REMOVED. TRANSFERRED VIA WHEELCHAIR.
[2019-11-28 19:07] LABS: SYPHILIS AB Non Reactive (Non Reactive)
== END 2019-11-27 13:13 | DRG 682 ==
LOC: 4S 16:43
PROVIDERS: Hospitalist; Nurse Practitioner; ADMIT Internal Medicine
DX: N17.9 Acute kidney failure, unspecified (principal); G93.41 Metabolic encephalopathy; F03.91 Unspecified dementia, unspecified severity, with behavioral disturbance; F02.80 Dementia in other diseases classified elsewhere, unspecified severity, without behavioral disturbance, psychotic disturbance, mood disturbance, and anxiety; I10 Essential (primary) hypertension; N40.0 Benign prostatic hyperplasia without lower urinary tract symptoms; K59.00 Constipation, unspecified; K21.9 Gastro-esophageal reflux disease without esophagitis; Z88.1 Allergy status to other antibiotic agents; Z88.8 Allergy status to other drugs, medicaments and biological substances; Z90.49 Acquired absence of other specified parts of digestive tract; Z90.89 Acquired absence of other organs; Z79.891 Long term (current) use of opiate analgesic; Z79.899 Other long term (current) drug therapy; E86.0 Dehydration; G31.83 Neurocognitive disorder with Lewy bodies
CPT/HCPCS: 10102

== ENCOUNTER 2019-11-27 13:20 | Inpatient (IN) | payer OTHER, MEDICARE ==
[~2019-11-27] VITALS: Ht 156.8 cm; Wt 71.3 kg
[~2019-11-27 13:20] MED LIST changes: +ACETAMINOPHEN325 M1 PO; +NORCO 5-325 TA1 EAC1 PO; +TRAMADOL 50 MG50 MG PO
[2019-11-27 13:49] VITALS: BP 134/78
--- NOTE | 2019-11-27 15:27 | NUR ---
1300 PATIENT NEW ADMIT TRANSFER FROM [address] [place] [address] FOR FALL PATIENT SUSTAINED ON 11/24/19. PATIENT IS HERE FOR DEMENTIA WITH AGGRESSIVE BEHAVIORS, PATIENT HAS A SITTER DUE TO BEING IMPULSIVE. PATIENT WAS ACCEPTING OF THE ADMISSION, PATIENT HAS A HISTORY OF PARKINSONS, DEMENTIA WITH AGGRESSIVE BEHAVIORS, HYPERTENSION AND BPH. PATIENT ON ADMISSION WAS PUSHING A CHAIR TO DAY ROOM AND WAS TOUCHING ANOTHER PATIENT SO HE COULD TALK WITH HIM. I REDIRECTED PATIENT TO HACE SOCIAL DISTANCE HE TRIED TO HIT ME. DR HERRING ORDERED A SITTER TO BE WITH THE PATIENT DUE TO IMPULSIVE BEHAVIORS. PATIENT LATER IN THE DAY HAS A WALKER AND HAS BEEN WALKING THE HALLS. PATIENT IS CALM AND MORE COOPERATIVE ABDOMEN SOFT ROUND BOWEL SOUNDS PRESENT IN ALL 4 QUADRANTS. PATIENTS LUNG CLEAR DENIES SI/HI/AH/VH AT PRESENT; WILL CONTINUE TO MONITOR PATIENT FOR SAFETY AND BEHAVIORS.
[2019-11-27 20:08] VITALS: BP 138/78
--- NOTE | 2019-11-27 23:23 | NUR ---
Care assumed of patient at 1915: Patient seated in dayroom at start of shift. Currently remains 1:1 while awake. Patient impulsive. Attempting to re-arrange furniture, moving from chair to couch to chair. Patient weak, unsteady gait, poor balance, forgetting to use his walker. 1:1 staff remains at his side, ensuring patient is using walker when ambulating. Patient has clear speech, soft spoken. Patient alert and oriented to person. Confused and forgetful on current place, time and situation. Patient speaking about wanting to go down the wolf to see his parents, and kids. Patient became irritable that his family was not here and demanded to know where they were. Required re-direction several times that his family is at home and he is in the hospital. Patient ate 100% HS snack. Took HS medication without difficulty. Patient was fairly cooperative and went to bed at a reasonable hour. Patient was able to sleep quietly for some time. Patient then woke up to use the bathroom. As patient was being re-directed back to bed, he started to become more agitated, resistive, irritable, confused. Patient did grab nurses arm out of anger but was able to be directed to let go after a couple attempts. Patient expressing concern about his and concern that she is ok. Instructed patient that staff would assist him to call her in the morning. Patient was satisfied with this response. Patient then chose to sit in recliner in dayroom rather than going back to bed. Patient seated quietly in recliner in dayroom at this time.
[2019-11-28 07:46] VITALS: BP 157/98
[2019-11-28 09:00] VITALS: BP 157/98
--- NOTE | 2019-11-28 09:35 | NUR ---
PT WAS SLEEPING UNTIL 0830 PT FEEDING SELF BREAKFAST. PT TOOK MEDICATION WITHOUT ANY ISSUES. PT STANDS UP FAST WHEN GETTING READY TO AMBULATE. PT DIDN'T SHOW SIGNS OF DIZZINESS. PT USES WALKER AND ALSO LIKES TO HOLD MAGAZINES WITH ONE HAND. PT LUNGS CLEAR, NO COUGH. PT HAS 1:1 FOR SAFETY DUE TO FALLS.
--- NOTE | 2019-11-28 14:13 | NUR ---
PT RESTING AT THIS TIME IN BED, STILL HAS 1:1 CARE.
--- NOTE | 2019-11-28 22:56 | NUR ---
Care assumed of patient at 1915: Patient seated in dayroom with sitter at start of shift. Patient fairly calm, pleasant and cooperative. Alert and oriented to person. Using markers and coloring paper. Fidgeting with markers by sticking them together, stacking them, etc. Patient remains impulsive by standing and attempting to ambulate without walker and assist. Needs several reminders on using walker. Patient has been observed leaning to left side which started around 1999. Once re-directed to sit upright and scoot back in chair, patient was able to do so and maintained torso strength for approximately 5 minutes, then started to lean again. Patient observed having same leaning tendencies while ambulating and required directions to stand upright. Patient having some disorganized speech but has also been able to converse with fairly clear sentences. When asked current location, he was able to say "[place]" but had trouble finding other words. Patient was also able to state the current year was 2019. Patient expressed concern as to why he was in the hospital. Patient also made a request to go home. Education completed as to why patient was in the hospital and areas that need improvement before he could be discharged. Patient appreciative and stated "I will try". Patient ate 100% HS snack independently. Drank scheduled HS Miralax. Patient started to fall asleep at table. Sitter assisted patient to bed, patient was able to fall asleep without difficulty. Patient did request a sleeping pill before going to bed, however, due to patient falling asleep at table, medication was not administered. Patient up around 2230 to use the bathroom. Patient was then able to return back to bed and fall back to sleep without difficulty.
--- NOTE | 2019-11-29 08:46 | NUR ---
Due to COVID-19 guidelines, OVERNIGHT CASHIER met with patient 1:[address] of group activity. Patient was observed fidgeting with various belongings in his room. Pt eventually able to join milieu and sit at a table without displaying impulsive behaviors- standing up, etc. Pt maintained focus on coloring an Easter card for his daughter. He also spoke about his daughter refering to her as, "sweet as hell" and describing her work as a teacher. He was observed fidgeting with markers at times; mixing caps on markers and stacking them. No agitation/aggression during interaction.
[2019-11-29 11:52] VITALS: BP 157/98
--- NOTE | 2019-11-29 14:47 | NUR ---
Due to COVID-19 guidelines, OPTICAL INSTRUMENTS SUPERVISOR met with patient 1:[address] group activity. Patient expressed interest in working a puzzle. He was able to maintain a seated position but was unable to hold complete focus on task at hand. Patient jovial and ornery with staff in conversation.
--- NOTE | 2019-11-29 14:49 | NUR ---
Pt readmited to [facility]. Pt will d/c back to [facility]. Sent updates today.
--- NOTE | 2019-11-29 15:39 | NUR ---
ASSUMED CARE AT 0700 THIS MORNING. PT. WAS ASLEEP AND SLEPT THROUGH BREAKFAST. HE DID TAKE HIS MORNING MEDICATIONS CRUSHED AND IN APPLESAUCE. HE GOT UP AFTER BREAKFAST AND WAS GIVEN BREAKFAST (SAVED FOR HIM). HE WALKED AROUND THE UNIT WITH HIS WALKER. HE TOOK THE REST OF HIS MEDICATIONS WHOLE AND WITH WATER ONCE HE WAS AWAKE. ABOUT 1500 HE STARTED BECOMING AGITATED, REFUSING HIS WALKER, BEING AGITATED WHEN ASKED TO GET IT. DR. HERRING HERE AND SAW BEHAVIORS. SHE ADDED ATIVAN TO HIS MEDS.
[2019-11-29 19:38] VITALS: BP 116/61
--- NOTE | 2019-11-29 23:06 | NUR ---
PT AGITATED AND YELLING AND KICKING PEOPLE FROM HIS RECLINER. HE TRIED TO BITE CHANGE MANAGEMENT ANALYST AND THIS NURSE. PATIENT HAS BEEN TAKEN TO THE BATHROOM. NO BM BUT VOIDS. PATIENT ARGUMENTATIVE. PT HAD TRAZADONE EARLIER WITHOUT EFFECT. CALLED AND RECIEVED ORDER FROM PAULINO BRAY FOR ZYPREXA 5MG IM STAT. THIS WAS GIVEN WITH HELP OF 2 NURSES AND CHANGE MANAGEMENT ANALYST TO HELP HOLD. GIVEN IN RIGHT DELTOID. PATIENT STILL AGITATED AND TRYING TO MOVE HIS RECLINER. PATIENT CONTINUES TO BE 1:1. WILL CONTINUE TO MONITOR. PATIENT DENIES PAIN.
--- NOTE | 2019-11-29 23:10 | NUR ---
PT SITTING WITH LAPBUDDY ON AND IN PLACE. FITS COMFORTABLY AROUND HIS WAIST AND PT ABLE TO RELEASE IF DESIRED. WILL CONTINUE TO MONITOR.
[2019-11-29 23:13] VITALS: BP 116/61
--- NOTE | 2019-11-30 06:23 | NUR ---
PATIENT AWOKE TO TAKE 6AM MEDS. HE TOOK PILLS WHOLE WITH WATER. PATIENT THEN WHEELED IN RECLINER TO ROOM TO TOILET. PATIENT BRIEFS CLEAN AND DRY AND PATIENT BACK TO SLEEP IN RECLINER WITH LAP JORGE LUIS ON SNUG BUT PT ABLE TO REMOVE IF NECESSARY. PATIENT CONTINUES TO BE 1:1. PATIENT IS IMPULSIVE AND DOES TRY SUDDENLY TO STAND UP OR WALK BUT HE IS VERY UNSTEADY ON HIS FEET AND NEEDS WALKER AND ASSIST X 1 TO 2 WHEN WALKING. PATIENT SLEEPING AT THIS TIME.
[2019-11-30 08:00] VITALS: BP 135/75
--- NOTE | 2019-11-30 08:46 | NUR ---
PT AWAKE THIS AM AND TALKING TO STAFF. PT ABLE TO TAKE MEDS WHOLE WITH WATER. PT HAS 1:1 FOR SAFETY. PT HAS NO AGGRESSIVE BEHAVIOR AT THIS TIME. PT STILL HAS PERIODS OF COMPULSIVE STANDING UP. PT ABLE TO USE WALKER.
[2019-11-30] MEDS ORDERED: TRAZODONE HCL100 MG PO (13:58)
[2019-11-30] MEDS ORDERED: LORAZEPAM 0.50.5 MG PO (13:58)
[2019-11-30] MEDS ORDERED: OLANZAPINE ODT5 MG PO (13:58)
[2019-11-30] MEDS ORDERED: ENTACAPONE200 M1 PO (14:02)
--- NOTE | 2019-11-30 14:02 | NUR ---
JEREMIAH sent another email to admissions at [facility] to confirm that d/c was planned and needed a brick picker time for salma. Jeremiah also provided her with Dr Flynn's number as their MD wanted to speak with her. There has not been a a return call at this time.
[2019-11-30 14:20] VITALS: BP 87/47
--- NOTE | 2019-11-30 14:20 | NUR ---
PT IN DINING ROOM AND WAS STANDING BY A TABLE. PT LEANED OVER AND FELL ON FLOOR. VSS TAKEN, BP LOW 87/47, PULSE 57. PT DENIED ANY PAIN. ENCOURAGED PT TO DRINK WATER.
--- NOTE | 2019-11-30 14:47 | NUR ---
PT WAS TOO TIRED TO TAKE MED AT THIS TIME.
--- NOTE | 2019-11-30 14:53 | NUR ---
BIAS MACHINE OPERATOR met with patient 1:1 multiples times throughout the day to provide individual leisure opportunities. Patient did play ball toss with beach ball. Pleasant/no aggression or agitation.
--- NOTE | 2019-11-30 23:08 | NUR ---
Care assumed of patient at 1915: Patient seated in dayroom at start of shift. Patient currently 1:1 while awake. Patient has periods of restlessness and impulsivity. Patient will quickly stand, start to walk without his walker, pace around the halls, then sit back at table in dayroom. Patient fixated on needing a map for first 30 minutes of shift. Patient provided Friday map puzzle which kept him occupied for a bit. Patient then was able to complete another puzzle with 1:1 sitter. Patient alert and oriented to person and place. Patient confused and forgetful. No aggression or agitation noted. Denies pain or discomfort. Denies SI/HI/AH/VH. No delusional or paranoia behaviors observed. Patient took HS medication whole without difficulty. Patient ate 100% HS snack. Patient did state that he was not tired and did not appear tired. Patient did request "sleeping pill". PRN Trazodone administered. Patient presents with blunted affect with an occasional smile observed. Difficulty making eye contact, but was also focused on completing puzzle. Patient was able to retire to bed and sleep for approximately 1.5 hours, then woke up and started to pace halls again. After completing a few laps of unit, staff assisted patient back to bed where he is laying quietly.
[2019-12-01 08:17] VITALS: BP 100/70
[2019-12-01 09:58] VITALS: BP 100/70
--- NOTE | 2019-12-01 11:50 | NUR ---
1147 RESUMMED CARE FROM OVERNIGHT SHIFT PATIENT IN DAYROOM ASLEEP IN RECLINER. PATIENT WAS PRETTY SEDATED FROM PRN LAST NIGHT, PATIENT DID AWAKE ATE BREAKFAST TOOK MEDICATION WITHOUT INCIDENCE. PATIENT WAS DOING WELL UNTIL ABOUT 10:00 THEN GOT AGGRESSIVE WITH ONE TO ONE. LORAZAPAM 0.5 MG PO GIVEN TO PATIENT THEN DR HERRING CHANGED PATIENTS ROOM FOR LESS STIMULATION. PATIENT WAS PUT IN SECLUSION ROOM THEN HER STARTED STANDING ON THE BED NOT FOLLOWING DIRECTIONS. DR HERRING ORDERED ZYPREXA 5 MG IM AND PATIENT PLACED IN SOFT RESTRAINTS. PATIENT ABDOMEN SOFT ROUND BOWEL SOUNDS PRESENT LUNGS CLEAR. PATIENT DENIES SI/HI/AH/VH AT PRESENT, PATIENT DID TALK TO SO SHE COULD CALM PATIENT DOWN. WILL CONTINUE TO MONITOR PATIENT FOR BEHAVIORS AND SAFETY.
--- NOTE | 2019-12-01 14:01 | NUR ---
Jereimah sent updates to cynthia christian
--- NOTE | 2019-12-01 16:51 | NUR ---
PATIENTREMOVED RESTRAINTS WHILE HAVING ONE RESTRAINT OFF. FENCE SUPERVISOR'S ATTEMPTED TO GET HIM BACK TO BED AND WAS UNABLE TO DO SO. SECURITY CALLED AND PATIENT BACK TO BED WITH RESTRAINTS ON. ZYPREXA 5MG IM GIVEN TO RIGHT DELTOID FOR INCREASE AGITATION PER DR HERRING'S ORDER.
--- NOTE | 2019-12-01 17:06 | NUR ---
12:00 PATIENT WAS PUT IN SOFT RESTRAINTS DO TO AGGRESSION TO A STAFF MEMBER. PATIENT WAS GIVEN LORAZAPAM 0.5 MG AT 11:[address] IN SAFE ROOM; PATIENT THEN WAS STANDING UP ON THE BED IN THE QUIET ROOM NOT FOLLOWING DR HERRING'S REQUESTS. THEN DR HERRING ASKED US TO PUT HIM IN SOFT RESTRAINTS AND PATIENT WAS GIVEN ZYPREXA 5 MG IM AT 12:07. PATIENT WAS RESTING QUIETLY WITH ONE TO ONE.
--- NOTE | 2019-12-01 17:19 | NUR ---
1400 PATIENT HAD TO USE RESTROOM AND ASKED FOR A URINAL, DR HERRING ASKED ME TO REMOVE ONE ARM OUT OF RESTRAINT. PATIENT COULD NOT URINATE AT THAT TIME, PATIENT THEN WENT TO SLEEP. PATIENT HAS BEEN MONITORED FOR SAFETY AND BEHAVIORS.
--- NOTE | 2019-12-01 17:22 | NUR ---
1600 PATIENT ASKED TO USE THE RESTROOM AGAIN AND PATIENT GOT OUT OF HIS RESTRAINT AND WOULD NOT COOPERATE WITH STAFF TO GET BACK IN BED. PATIENT WAS GIVEN A REPEAT DOSE OF ZYPREXA 5 MG AT 1648. PATIENT IS RESTING QUIETLY AND HAS HIS ONE TO ONE STAFF MONITORING PATIENT FOR SAFETY AND BEHAVIORS.
--- NOTE | 2019-12-01 18:04 | NUR ---
1800 PATIENT IS ASLEEP RESTING QUIETLY ONE TO ONE MONITORING PATIENT FOR SAFETY AND BEHAVIORS.
--- NOTE | 2019-12-01 20:06 | NUR ---
Assumed care at change of shift. Pt. is in soft wrist restraints. He is pulling at restraints while he is grabbing and kicking at staff. He has refused food, fluids, and urinal. He has a 1:1 sitter. Security officers called for assist with IM of han. IM given in right upper buttocks. Pt. was attempting to kick and grab at staff and attempting to bite.
--- NOTE | 2019-12-01 21:39 | NUR ---
2039 SENIOR BRAND MANAGER was in doorway yelling "he is out"! Upon entering room patient was found to be standing between one side of the bed and a wall. There was a chair wedged between bed and wall on same side as patient. He jumped over the chair and starting coming toward this nurse and SENIOR BRAND MANAGER. SENIOR BRAND MANAGER fled room and this nurse followed. Patient then came running out of room and proceeded to run down hallway while trying to pull up his pants. Security was notified. Security arrived after approximately 5 minutes. During that time patient wandered down hallway, into dining room and proceeded to open the refridgerator door and take out multiple items. Security arrived and approached patient in dining room. He was walked back to his room by security and returned to bed. Restraints reapplied.
--- NOTE | 2019-12-01 21:49 | NUR ---
2100 Pt. found to be resting quietly in bed with eyes closed. Respirations even and non-labored. Pt. appears to be sleeping. PROTOTYPE SPECIAL BUILD reports patient is occasionally mildly restless. No signs or symptoms of distress noted.
[2019-12-01 21:52] VITALS: BP 100/70
--- NOTE | 2019-12-01 23:25 | NUR ---
Pt. is awake and tried to get out of bed. He sat up and got both legs over siderail. PRN Lorazepam and Zyprexa given for anxiety and agitation.
--- NOTE | 2019-12-02 06:27 | NUR ---
Pt. took am meds without difficulty. Bilat soft wrist restraints remain. No signs or symptoms of pain or distress noted. No problems reported by CHRONOMETER TESTER this am.
[2019-12-02 08:00] VITALS: BP 129/63
--- NOTE | 2019-12-02 08:00 | NUR ---
PT IN ROOM WITH 1:1 STAFF, PT STILL HAS SOFT RESTRAINTS ON TO WRIST. PULSE BILATERALY STRONG AND EQUAL +2. PT TALKED TO THIS TERMITE CONTROL SERVICER BY SAYING YES TO QUESTIONS. PT DENIES ANY PAIN. PT ABLE TO LIFT HANDS TO HOLD A CUP TO FACE. PT CALM AT THIS TIME.
--- NOTE | 2019-12-02 09:44 | NUR ---
PT TOOK MEDS THIS AM WHOLE. PT DRANK APPLE JUICE WITHOUT ANY ISSUES. PT STATED HE DIDN'T WANT TO CHOKE. PT FELL BACK TO SLEEP AND SNORING AFTER MEDS. KEPT PT HOB ELEVATED AFTER MED ADM.
--- NOTE | 2019-12-02 12:58 | NUR ---
PT WAS ABLE TO URINATE IN URINAL. OBTAINED SPECIMEN FOR LAB. URINE IS CLEAR BRANDEN IN COLOR.
[2019-12-02 13:16] LABS: URINE BILIRUBIN NEGATIVE (Negative); URINE BLOOD NEGATIVE (Negative); URINE CLARITY CLEAR; URINE COLOR YELLOW; URINE GLUCOSE-RANDOM* NEGATIVE (Negative); URINE KETONES NEGATIVE (Negative); URINE LEUKOCYTES NEGATIVE (Negative); URINE NITRITE NEGATIVE (Negative); URINE PROTEIN (DIPSTICK) NEGATIVE (Negative); URINE UROBILINOGEN 0.2 E.U./dl (0.2-1.0)
--- NOTE | 2019-12-02 14:59 | NUR ---
PT AWAKE AND USING URINAL AT THIS TIME. PT STILL HAS SOFT RESTRAINTS ON BILATERAL. PT ABLE TO MOVE ARMS TO FACE.
--- NOTE | 2019-12-02 15:28 | NUR ---
TOOK PT WRIST RESTRAINTS OFF AND PT UP IN RECLINER WITH LAP JORGE LUIS, PT STILL HAS 1:1 FOR SAFETY. NOTICED SHAKING TO HANDS. PT TALKING ON PHONE NOW WITH FAMILY.
[2019-12-02 19:56] VITALS: BP 96/55
[2019-12-02 20:00] VITALS: BP 96/55
--- NOTE | 2019-12-03 01:53 | NUR ---
ASSESSMENT: PT REMAIN ALERT AND ORIENT TIMES TWO. PT WAS COOPERATIVE DURING THE BEGINNING OF THE SHIFT. FOLLOWED COMMANDS AND WAS IN THE WC WITH SITTER BY THE SIDE. AT APPROXIMATELY 000 PT BEGAN GETTING ANXIOUS AND PACIING AROUND THE HALLS IF HE WAS TRYING TO GET AWAY FROM THE SITTER. ONE TIME ORDER FOR IM ZYPREXIA WAS ORDERED. PT SLEPT WELL POST IM ZYPREXIA. SITTER AT THE BEDSIDE. VSS, AFEBRILE. SLOW PROGRESS TOWARDS DC GOALS. WILL CONTINUE TO MONITOR,
[2019-12-03 07:45] VITALS: BP 111/84
[2019-12-03 11:09] VITALS: BP 111/84
--- NOTE | 2019-12-03 13:15 | NUR ---
1255 RESUMMED CARE FROM OVERNIGHT SHIFT THIS AM, PATIENT UP WANDERING AROUND HALLS. PATIENT ATE BREAKFAST AND TOOK MEDICATION WITHOUT INCIDENCE. PATIENT'S ONE TO ONE HAD TO LEAVE AND BE REPLACED WITH SOMEONE ELSE. PATIENT AT 1310 STARTED PULLING AWAY FROM ONE TO ONE TRYING TO HIT ONE TO ONE. WE TRIED TO DISTRACT PATIENT TO HELP HIM CALM DOWN. HE CONTINUED BEING AGITATED AND TRYING TO EXIT SEEK. A ONE TIME OF ZYPREXA GIVEN AT 1317 IN RT BUTTOCK TO HELP PATIENT CALM DOWN. PATIENT SAYS NO TO SI/HI/AH/VH AT PRESENT PATIENT IS STILL SOMEWHAT CONFUSED. ABDOMEN SOFT ROUND BOWEL SOUNDS PRESENT LUNGS CLEAR WILL CONTINUE TO MONITOR PATIENT FOR BEHAVIORS AND SAFETY.
[2019-12-03 19:54] VITALS: BP 102/65
--- NOTE | 2019-12-04 03:11 | NUR ---
patient aox1 confused and forgetful. patient was agitated this shift, called reversing mill roller new order zyprexa 5mg im x1. patient incontinent this shift pericare and barrier cream applied as needed. no s/s of pain or discomfort. patient encouraged fluids this shift. patient is on 1:1 for safety d/t patient being a fall risk and impusive.patient in day room asleep at this time breathing regular and unlaboured.
[2019-12-04 08:07] VITALS: BP 139/78
[2019-12-04 17:01] VITALS: BP 139/78
--- NOTE | 2019-12-04 17:14 | NUR ---
ASSUMED CARE AT 0700 TODAY. PT. WAS IN GOOD SPIRITS THIS MORNING. HE TOOK ALL HIS MEDICATIONS TODAY UP TO 1500. ABOUT 1500 HE STARTED BECOMING AGITATED, GRABBING PEOPLE, HOLDING ON VERY TIGHTLY, NOT TAKING REDIRECTION. HE WAS VERY AGITATED. HE TOOK PO OLANZAPINE 5 MG. THIS DID VERY LITTLE TO STOP HIS SAID BEHAVIORS. AGAIN HE WAS OFFERED OLANZAPINE 5 MG BUT HE REFUSED THIS. DR. HERRING WITH THE PATIENT WAS TWO PULP DRIER FIRER'S. DR. HERRING ORDERED IM 5 MG. HE WAS GIVEN IM. HE CONTINUED TO BE AGITATED FOR A WHILE.
[2019-12-04 19:56] VITALS: BP 91/63
--- NOTE | 2019-12-05 02:09 | NUR ---
PATIENT AOX1 CONFUSED AND FORGETFUL. PATIENT ENCOURAGED FLUIDS. PATIENT HAS NO S/S OF PAIN OR DISCOMFORT. PATIENT IS ON 1:1 FOR SAFETY D/T PATIENT IS IMPULSIVE AND FALL RISK. PATIENT IS INCONTIENT PERICARE AND BARRIER CREAM APPLIED NEEDED. PATIENT IN BED ASLEEP AT THIS TIME BREATHING REGULAR AND UNLABOURED.
[2019-12-05 07:30] VITALS: BP 143/81
--- NOTE | 2019-12-05 07:30 | NUR ---
PT WAS KICKING AND FIGHTING WITH STAFF WITH VS MACHINE. PT WAS GRABBING AT CORDS AND NOT LETTING GO. PT HAS 1:1 DUE TO FALL RISK AND IMPULSIVE BEHAVIOR. THIS STRUCTURAL DESIGNER STATED THAT THE AIDES WAS TRYING TO TAKE HIS BP. HE STATED OH THEY WHERE. PT DIDN'T SEEM AGITATED AT THE TIME THIS STRUCTURAL DESIGNER WAS CALM.
--- NOTE | 2019-12-05 08:19 | NUR ---
ADM OLANZIPINE 5MG SL IN APPLE JUICE. PT TOOK WITHOUT ANY ISSUES.
[2019-12-05 08:58] VITALS: BP 143/81
--- NOTE | 2019-12-05 09:18 | NUR ---
0800 - 0830: I had a telephone message from Nicola's daughter from 12/04/19 during the 1600 - 1700 hour. Her message gave the privacy code. Her message stated that she wanted to speak to her father. I returned her call this morning. She wanted an update, which I gave to her. She inquired as to what number she should call for updates and if she wanted to speak to her father. I gave her the number to the nursing station [phone] She thanked me for me returning her phone call.
--- NOTE | 2019-12-05 12:11 | NUR ---
ADM TYLENOL 650MG PO FOR COMPLAINTS OF HEADACHE. PT DID TAKE MEDS WHOLE. PT TAKING BIG BITES OF FOOD AND NEEDS ENCOURAGED TO SWALLOW. PT HAS COUGH AT TIMES AFTER EATING OR DRINKING.
--- NOTE | 2019-12-05 13:37 | NUR ---
PIERCE spoke with Kelli PELAYO at [facility] and they asked for a conference call with PIERCE and Dr Gee MAGANA. PIERCE set it up for 1PM tomorrow. Confirmed with Dr Flynn.
[2019-12-05 19:30] VITALS: BP 112/81
--- NOTE | 2019-12-06 04:58 | NUR ---
ASSUMED PT CARE AROUND 191. CONFUSED AND IMPULSIVE. SITTER AT PT'S SIDE AT ALL TIMES. NO S/S ACUTE DISTRESS NOTED OR REPORTED AT THIS TIME. WILL CONT TO MONITOR FOR ANY CHANGES IN CONDITION.
[2019-12-06 06:00] LABS: ABSOLUTE NEUTROPHILS 3.2 thou/uL (1.4-8.2); BASOPHILS 0.7 % (0.0-2.0); EOSINOPHILS 8.1 % (0.0-3.0); HEMATOCRIT 37.9 % (42.0-52.0); HEMOGLOBIN 12.9 gm/dL (14.0-18.0); LYMPHOCYTES 28.7 % (24.0-44.0); MCH 30.2 pg (26.0-34.0); MCV 88.9 fL (80.0-100.0); MONOCYTES 7.5 % (1.0-8.0); PLATELET COUNT 220 thou/uL (150-400); RBC 4.27 mil/uL (4.50-6.00); RDW 13.4 % (10.5-14.5); WBC 5.8 thou/uL (4.0-11.0)
[2019-12-06 06:23] LABS: ALBUMIN 3.4 g/dL (3.4-5.0); CALCIUM 9.1 mg/dL (8.5-10.1); POTASSIUM 4.1 mmol/L (3.5-5.1); TOTAL BILIRUBIN 0.4 mg/dL (<0.1-1.0)
[2019-12-06 08:15] VITALS: BP 120/79
--- NOTE | 2019-12-06 09:52 | NUR ---
PT SITTING IN W/C THIS AM WITH 1:1 FOR SAFETY. PT ABLE TO WHEEL SELF AROUND. PT ASKED THIS MIME ARTIST IF HIS MEDS WAS GOING TO BE CRUSHED. PT ABLE TO DRINK WATER WITH MIRALAX. PT ABLE TO TAKE MEDS WITHOUT COUGHING. PT ABLE TO FEED SELF. PT DOES PUSH WHEELCHAIR ALSO WITH 1:1 AT ARMS LENGTH. PT HAS SHAKING TO HANDS BILAERALY. PT DIDN'T HAVE ANY BEHAVIORS WITH STAFF THIS AM. PT IS EASILY REDIRECTED WITH WORKING ON WORD FIND.
--- NOTE | 2019-12-06 12:51 | NUR ---
SW sent updates for the meeting at 1pm today.
--- NOTE | 2019-12-06 14:18 | NUR ---
SW with Dr Flynn particapted piyush conference call with the ED, DON, ADM, SW and auricular acupuncturist from [facility] reported they were not going to take this pt back no matter what. Dr Flynn described in depth the changes made and the behavioral changes that pt was making. SW will be finding new placement for this pt. Jeremiah then sent referrals to [facility].
--- NOTE | 2019-12-06 15:27 | NUR ---
PT STARTING TO WALK FASTER AND 1:1 UNABLE TO KEEP UP. ADM LORAZEPAM 0.5MG PO FOR ANXIETY. PT IS TALKING WITH ANOTHER RESIDENT AT THIS TIME SITTING ON BED.
--- NOTE | 2019-12-06 15:45 | NUR ---
Rehab Center is interested in the pt contact is Nathen [phone].
--- NOTE | 2019-12-06 16:07 | NUR ---
I came onto the unit and Nicola attempted to elope. He had a strong drone software development engineer on the door. We pryed his hand off the door. His primary nurse prepared a prn IM to give for agiation. staff was unable to redirect and keep he calm. He was waliking rapidly, staff kept pace with him to make sure he would not fall. WE took his walker away from him as the walker was inhibiting his gait.
--- NOTE | 2019-12-06 16:25 | NUR ---
PT WAS RUNNING AROUND UNIT AND HOLDING PAPER BAG WITH PAPERS IN IT. THIS BASKETBALLS AND FOOTBALLS REVERSER TOOK BAG AWAY FROM PATIENT AND PATIENT WAS ESCORTED BY DR. CALERO AND X2 STAFF TO SECLUSION ROOM. PT PONDING ON DOOR. PT HAS 1:1 WATCHING PT FOR SAFETY.
--- NOTE | 2019-12-06 16:35 | NUR ---
PT FELL IN QUIET ROOM. DR. CALERO AND SECURITY HERE TO APPLY 4 POINT RESTAINTS. PT VS OBTAINED 135/78, PULSE 95 AND OXYGEN SAT 96%. DR. CALERO WANTED TO BLOOD SUGAR TAKEN. THE AIDE POCKED PT FINGER AND PT REFUSED TO HAVE BLOOD SUGAR TAKEN. PT STATED HE MISSES HIS FAMILY, PT WANTING TO GET UP. PT PUTTING ON NEW YELLOW SOCKS.
[2019-12-06 16:37] VITALS: BP 135/78
[2019-12-06 17:37] VITALS: BP 131/98
[2019-12-06 20:45] VITALS: BP 131/98
--- NOTE | 2019-12-07 02:38 | NUR ---
PATIENT WAS CALM AND COOPERATIVE AT BEGINNING OF SHIFT AND THEN WENT TO BED AROUND 2100. HE SLEPT FOR AN HOUR AND THEN WANTED BACK UP. HE WAS BROUGHT TO THE DINING ROOM AND SAT IN A RECLINER WITH PILLOW AND BLANKET. PATIENT BECAME COMBATIVE AND HITTING AND SWINGING AND TRYING TO GET UP. HE FOUGHT HAVING A LAP JORGE LUIS PLACED ON HIM. SPOKE WITH PATIENT AND TOLD HIM IF HE WOULD SIT IN RECLINER AND BE CALM THAT I WOULD LEAVE THE LAP JORGE LUIS OFF. I WOULD PUT IT BACK ON IF HE BECAME RESTLESS AND COMBATIVE SO THAT HE COULD BE SAFE. PATIENT SAT WITH 1:1 AND THIS NURSE WITHOUT THE LAP JORGE LUIS FOR AWHILE AND THEN BECAME COMBATIVE AND RESTLESS. HE WAS GIVEN IBUPROFEN AT HS FOR LOW BACK PAIN. PT WAS TOILETED FREQUENTLY ALSO. CALLED AND RECEIVED ORDER FOR ZYPREXA 5MG IM AND THIS WAS GIVEN. PATIENT DID CALM AND OIL LEASE OPERATOR AND NURSE WERE ABLE TO ASSIST PATIENT BACK TO HIS ROOM TO WHERE HE HAS BEEN SLEEPING SINCE AROUND MIDNIGHT. 1:1 STILL PRESENT WITH PATIENT D/T IMPULSIVENESS AND TO MAKE SURE HE DOESN'T TRY TO GET UP OUT OF BED ON OWN SINCE UNSTABLE ON FEET AFTER ZYPREXA GIVEN. VSS,LCTA, HEART SOUNDS REGULAR. PATIENT DID HAVE SNACK TONIGHT AND TOOK PILLS WHOLE WITH NECTAR THICK LEMON WATER. BED IN LOW POSITION AND BED ALARM ON.
[2019-12-07 05:50] VITALS: BP 131/90
[2019-12-07 10:05] VITALS: BP 134/76; BP 137/76
--- NOTE | 2019-12-07 11:24 | NUR ---
No RT group d/t COVID19 precautions. Patient worked 1;1 with MOBILE LAB TECHNICIAN for approximately 30 minutes. Patient able to maintain focus to play "war" card game. Using a watch to read time and set focus goals, patient fidgetted little. When he met time goal, patient requested to go to hallway to "burn off energy" by wheeling himself in laps.
--- NOTE | 2019-12-07 11:54 | NUR ---
1155 RESUMMED CARE FROM OVERNIGHT SHIFT THIS AM, PATIENT IN W/C IN DAY ROOM WAITING FOR BREAKFAST. PATIENT ATE BREAKFAST AND TOOK MEDICATION WITHOUT INCIDENCE. PATIENT ABDOMEN SOFT ROUND BOWEL SOUNDS PRESENT IN ALL 4 QUADRANTS. PATIENTS LUNGS CLEAR PATIENT UNABLE TO TELL ME IF HE HAS SI/HI/AH/VH AT PRESENT. PATIENT IS IMPULSIVE AT TIMES AND WE ARE USING MUSIC AND OTHER DISTRACTIONS TO HELP PATIENT BE CALM. WILL CONTINUE TO MONIITOR PATIENT FOR SAFETY AND BEHAVIORS.
--- NOTE | 2019-12-07 13:40 | NUR ---
SW called and left messages for [facility], [facility], [facility] , [facility], [facility] and [facility] not have memory care
--- NOTE | 2019-12-07 13:42 | NUR ---
Jeremiah is also communicating wiht spouse and son Hari via email regarding the displacement of this pt. they stated that he has lived at [facility] since 09/18/19 and was there continuously until his admission to [facility]. They want this pt to return to [facility]. Jeremiah has communicated this to Directors in [facility].
--- NOTE | 2019-12-07 14:44 | NUR ---
[facility] will accept this pt back as soon as they feel he is stable enough for [facility]. This has been communicated to family.
--- NOTE | 2019-12-08 04:55 | NUR ---
Assumed care of pt @ 1900. Pt calm et cooperative this shift with one minor outburst when trying to assist him with toileting. Took medications crushed in applesauce without difficulty. Ambulates with assist of w/c but can stand et transfer without difficulty. VSWNL. Health assessment with no abnormalities other than previously noted. Denies SI/HI @ present time. Currently resting in bed with eyes closed. Will continue to monitor per protocol.
[2019-12-08 07:30] VITALS: BP 98/68
--- NOTE | 2019-12-08 10:59 | NUR ---
0700 ASSUMED CARE OF PATIENT, PATIENT ASLEEP AT THAT TIME. PATIENT TO DAYROOM FOR BREAKFAST EATING 100%. PATIENT VOIDED AND HAD A BM. DENIES PAIN. 0850 PATIENT TAKES MEDS WHOLE AFTER ASKING HIM HOW HE WOULD LIKE TO TAKE THEM (WHOLE OR CRUSHED) APPEARS TO DO BETTER WHEN GIVEN A CHOICE TO DECIDE FOR HIMSELF. PATIENT IN WC AT THAT TIME. NO GOALS OR CONCERNS VOICED AT THIS TIME. WILL CONTINUE TO OBSERVE.
--- NOTE | 2019-12-08 15:46 | NUR ---
1415 PATIENTIN WC GOING DOWN THE URIBE AND GRABED A DUSTER FROM [employer]. MUSIC DEPARTMENT CHAIR ATTEMPTED TO TAKE DUSTER AWAY AND PATIENT GOT AGGITATED DURING THIS TIME. DUSTER TAKEN AWAY PATIENT CONFUSED STATING ITEM IS HIS. PATIENT REMOVED FROM AREA AND GIVEN SNACK. PATIENT CALMED DOWN AND AGITASION DECREASED. PATIENT CONTINUES WITH 1:1. WILL CONTINUE TO OBSERVE.
--- NOTE | 2019-12-08 16:11 | NUR ---
PATIENT SITTING IN CHAIR IN DAYROOM TALKING TO SELF. PATIENT CALM AT THIS TIME. COUNTER PROFESSIONAL SITTING WITH HIM. WILL CONTINUE TO OBSERVE.
--- NOTE | 2019-12-08 18:07 | NUR ---
PATIENT AMBULATING IN URIBE WITH BARREL LOADER 1:1 USINI WALKER AT THIS TIME. PATIENT IS UNSTEADY AND NEEDS TO BE REMINDED TO SLOW DOWN. PATIENT HAS BEEN COMPLIANT WITH MEDICATION. PATIENT TENDS TO DO BETTER WHEN PATIENT IS GIVEN AN OPTION AND ABLE TO CHOOSE HIMSELF. WILL CONTINUE TO OBSERVE.
[2019-12-08 19:31] VITALS: BP 123/79
--- NOTE | 2019-12-09 06:08 | NUR ---
ASSUMED PT CARE AT 1900. PT WITH 1:1. CALM AND COOPERATIVE TONIGHT. DID A PUZZLE WITH SITTER. TOOK MEDS EASILY WHOLE WITH WATER. PT WAS BROUGHT TO HIS ROOM WHERE HE SLEPT NEARLY ALL NIGHT. NO OTHER SIGNIFICANT CHANGES AT THIS TIME.
--- NOTE | 2019-12-09 09:23 | NUR ---
0700 ASSUMED CARE OF PATIENT, PATIENT IN BED WITH EYES CLOSED. 0915 PATIENT REQUESTS TO TAKE MEDS WHOLE. PATIENT GETS MEDS IN MOUTH AND UNABLE TO SWALLOW. HOLDS MEDS IN MOUTH FOR ABOUT 2 MIN ATTEMPTING TO SWALLOW. PATIENT SPITS ORINGE TINGE FLUID INTO CUP WITH MEDICATION AT BOTTOM OF CUP NOTED.
[2019-12-09 11:30] VITALS: BP 98/63
[2019-12-09 22:32] VITALS: BP 98/63
--- NOTE | 2019-12-09 23:24 | NUR ---
Assumed care of patient at change of shift. Pt. sitting in day room with gait belt on ant 1:1 sitter. At the time he is calme and cuasing no problems with staff or peers. Pt. took meds whole.
--- NOTE | 2019-12-09 23:29 | NUR ---
Patient remains in day room with 1:1 sitter. At this time he refuses to move and refuses to go to bed. He is currently being quietly and causing no issues with staff or peers. No signs or symptoms of pain or distress noted.
[2019-12-10 08:25] VITALS: BP 147/83
--- NOTE | 2019-12-10 15:16 | NUR ---
ASSUMED CARE AT 0700 THIS MORNING. PT. AWAKE, HAS 1:1 SITTER WITH HIM. HE IS HAS BEEN ABLE TO ANSWER QUESTIONS AND HAS BEEN ORIENTED X 3 THIS MORNING. HAD A CONVERSATION ABOUT JOBS HE HAS HAD. HOW HE FEELS ABOUT HIS ILLNESS. HE STATED HE KNEW THE [employer] HAS TAKEN HIS NORMAL LIFE FROM HIM AND FOR THAT HE IS UPSET (HE DID NOT USE THE WORD: MAD). HE TALKED ABOUT HIS LIFE GROWING UP IN [place] A CHILD AND MEETING HIS THERE. ABOUT 3 PM HE STARTED WALKING FASTER AND NOT ANSWERING QUESTIONS APPROPRIATELY. HE WAS THEN GIVEN A LORAZEPAM AND OLANZAPINE PRN. HE TOOK THESE. WILL SEE HOW HE IS ON THESE.
[2019-12-10 19:00] VITALS: BP 123/67
--- NOTE | 2019-12-10 23:01 | NUR ---
Assumed care of patient this pm shift. Patient up pacing the halls with sitter right behind him. Patient very impulsive this evening. Patient calmed down after prn given. Patient is dressed in clean hospital attire. Patient denies hi/si. Patient states that he has some neck pain. Patient can ambulate without assistance but has a unsteady gait. Patient takes medications whole. Patient is incontinent of bowel and bladder. Patients assessment shows clear breath sounds, active bowel sounds, and s1 s2 heard with auscultation. Patient is currently sitting in a reclining chair sleeping. We will continue to monitor.
[2019-12-11 08:00] VITALS: BP 155/89
--- NOTE | 2019-12-11 08:00 | NUR ---
PT RESTING IN RECLINER THIS AM. PT DOES OPEN EYES AND SPEAKS A SMALL AMT. PT HAS 1:1 CARE WHILE AWAKE. PT DID TAKE A FEW BITES FOR BREAKFAST. PT THEN BACK TO SLEEP. VSS. WILL CONT. TO MONITOR.
--- NOTE | 2019-12-11 11:30 | NUR ---
PT IS ABLE TO WAKE UP PER VERBAL STIMULUS. PT STILL IN RECLINER IN DINING ROOM.
--- NOTE | 2019-12-11 12:14 | NUR ---
Weekly RT Note: Patient continues to have a 1;1 sitter d/t impulsive behaviors. His concentration remains limited in interactions during RT 1;1 visits (no formal groups d/t COVID19 precautions.) At times patient is able to participate by setting "focus goals" - we will do this task until this time and then move on to something else. Patient has been enjoying cards and music in particular.
--- NOTE | 2019-12-11 12:15 | NUR ---
PT ABLE TO HAVE HIS MEDICATION WITH MASHED POTATOES. PT AWAKE AND TALKING TO STAFF AND DR. ROMANO. SHE ASSESSED HIS LEFT EYE THAT WAS RED AND PUFFY.
--- NOTE | 2019-12-11 14:19 | NUR ---
PT STILL SLEEPING IN RECLINER.
--- NOTE | 2019-12-11 16:29 | NUR ---
ADM TYLENOL 325MG 2 TABS FOR PAIN TO SHOULDERS OF 5 ON 1-10 SCALE.
[2019-12-11 23:00] VITALS: BP 132/77
--- NOTE | 2019-12-12 00:56 | NUR ---
PT BECAME AGITATED AT BEGINNING OF SHIFT. HE WAS YELLING AND SWINGING AT STAFF. PATIENT HAS A 1:1 SITTER WITH HIM WHILE AWAKE. HE WAS UNABLE TO BE TALKED DOWN. HE WAS REFUSING TO WEAR LAPBELT. HE IS UNSTEADY ON HIS FEET AND HE WAS TRYING TO RUN WALK AWAY FROM HIS RECLINER CHAIR. HE WAS WALKED BACK TO HIS ROOM BY 2 NURSES, AND CUSTOMER SERVICE TECHNICIAN AND A CITIZEN PARTICIPATION SPECIALIST. DR RIVERA WAS ON THE UNIT. HE ORDERED OLANZAPINE 7.5 MG IM AND HE ALSO TRIED HOLDING PATIENT WHEN INJECTION WAS GIVEN IN LEFT HIP. PATIENT WAS STILL RESISTIVE AND SWINGING, YELLING AND REFUSING TO SIT SO ORDER GIVEN BY DR RIVERA TO PLACE PATIENT IN QUIET ROOM. PT WAS TAKEN TO THE QUIET ROOM BY THIS NURSE AND DR RIVERA AND PREPARATION PLANT REPAIRER. CUSTOMER SERVICE TECHNICIAN WAS SITTING OUTSIDE LOCKED QUIET ROOM AND I WAS OBSERVING PT IN ROOM AT THE DOOR AND TRYING TO TALK HIM DOWN. PT CONTINUED TO YELL AND POUND ON THE DOOR WITH HIS HANDS. HE WAS NOT CALMING DOWN. HE TOOK THE MATRESS OFF THE BED AND PUT IT UP AGAINST THE WINDOW IN THE DOOR SO HE COULD NOT BE OBSERVED. DR RIVERA NOTIFIED AND ORDER FOR 4 POINT RESTRAINTS ORDERED AND SECURITY CALLED. ONCE IN THE ROOM THE PT HAD TO BE LOWERED TO THE BED BY THE [address] RIVERA HELD PATIENT'S LEGS AND THIS NURSE WORKED TO GET THE BILATERAL ANKLE RESTRAINTS AROUND ANKLES AND SECURITY REINFORCED TO MAKE SURE THEY WERE PROPERLY AND SAFELY ON. SECURITY PLACED BILATERAL WRIST RESTRAINTS ON PATIENT TOO. VITALS WERE TAKEN. PT RESTRAINED AT 1954. BP 132/77 P 120 R20 T97.7 02 97%. THESE WERE TAKEN AT 1954. THIS NURSE STAYED WITH THE PATIENT THE WHOLE TIME ASSURING HIM HE WAS SAFE. TALKING SOFTLY TO PATIENT TO TRY AND CALM HIM. ROOM OF QUIET ROOM UNLOCKED AND OPEN AT THIS TIME AND CUSTOMER SERVICE TECHNICIAN SITTING OUTSIDE IN OBSERVATION ROOM. PATIENT'S RESTRAINTS CHECKED TO MAKE SURE GOOD PULSES AND NO FRICTION TO SKIN. HEART AND LUNGS AUSCULTATED AND WERE REGULAR AND LUNGS CTA. PATIENT DENIED PAIN. VITALS TAKEN AGAIN AT 2014 AFTER SECURITY RELEASED RIGHT ANKLE FROM RESTRAINT. VSS AT 119/72BP P90 R18 02 98% T 97.7. PATIENT SLOWLY CALMED. COMMUNICATED TO PATIENT EACH ACTION (PROCESS) I WAS TAKING IN HIS CARE AND EXPLAINING THE BEHAVIOR EXPECTATION THAT NEEDED TO BE MET TO BE ABLE TO BE RELEASED FROM RESTRAINTS AND ABLE TO LEAVE THE QUIET ROOM. PT REMAINED CALM. INSTRUCTED SECURITY TO RELEASE RIGHT WRIST RESTRAINT. PATIENT STRETCHED HIS WRIST BUT STAYED CALM AND WAS NOT SWINGING. VITALS TAKEN AGAIN AT 2019 BP 101/71 P102 R20 02SAT 98%. OTHER RESTRAINTS REMOVED AND PATIENT INSTRUCTED TO SIT UP WHEN HE WAS READY. PT LAID FOR A FEW MINUTES AND THEN VOICED HE WAS READY TO SIT UP. THIS NURSE AND CITIZEN PARTICIPATION SPECIALIST ASSISTED HIM UP AND HAD HIM SIT ON SIDE OF BED TO GET HIS BEARINGS. HE DENIED ANY VERTIGO OR DISCOMFORT. PT PLACED IN WC WITH LAP JORGE LUIS AND TAKEN BACK TO HIS ROOM. ICE WATER AND SNACK OF HIS CHOICE (YOGURT) GIVEN TO PATIENT. HE TOOK HIS HS MEDS WHOLE. HE WAS TOILETED. VSS AT 2036 WERE 110/69 P90 R 18 T 97.7 AND 02% ON RA WAS 98%. PATIENT WAS CALM AND SAT IN HIS ROOM WITH SITTER FOR ABOUT 20 MINUTES BEFORE HE WAS READY TO COME OUT TO DAYROOM TO SIT IN RECLINER. HE LAID IN RECLINER WITH LAP JORGE LUIS ON AND PILLOW AND BLANKET WITH HIM FOR A LITTLE WHILE THEN HE BECAME RESTLESS. 1:1 SITTER TRIED WALKING PATIENT IN HALLS. PT BECAME MORE AGITATED AND WAS SWINGING AND YELLING. UNSTEADY ON HIS FEET. DELUSIONAL. RESISTANT WITH CARES. THIS NURSE CALLED FOR SECURITY AND CALLED DR RIVERA. ORDERS RECEIVED AND CARRIED OUT FOR HALDOL 7.5MG IM AND LORAZEPAM 1.5MG IM. IT TOOK 3 SECURITY GUARDS AND 2 NURSES TO GET THE INJECTIONS IN AND PATIENT SETTLED IN BED. PATIENT CALMED WITHIN 30 MINUTES AND HAS BEEN SLEEPING SINCE. 1:1 SITTER AT BEDSIDE. SIDERAILS UP AND BED LOCKED AND BED ALARM ON. PATIENT IS BREATHING NORMALLY WITH REGULAR RESPIRATIONS. PT APPEARS COMFORTABLE. CONTINUING TO MONITOR FOR SAFETY AND STATUS WITH CONTINUOUS OBSERVATION AND SITTER AT BEDSIDE WHILE HE IS SLEEPING TONIGHT. RELEASE LEFT WRIST FROM RESTRAINTS GET HIM OUT OF RESTRAINTS
--- NOTE | 2019-12-12 05:11 | NUR ---
PATIENT CONTINUES TO SLEEP. 1:1 SITTER STILL AT BEDSIDE. RESPIRATIONS EVEN AND UNLABORED. PATIENT APPEARS COMFORTABLE HE SLEEPS ON HIS BACK. BED IN LOW POSITION. CONTINUAL OBSERVATION D/T IMPULSIVENESS AND UNSTEADY GAIT AND BALANCE. NO DISTRESS NOTED. CONTINUING TO MONITOR.
[2019-12-12 07:46] VITALS: BP 141/84
[2019-12-12 19:28] VITALS: BP 131/61
--- NOTE | 2019-12-13 04:28 | NUR ---
Assumed care of pt @ 1900. Pt calm et cooperative this shift. Took medications whole in applesauce without difficulty. Ambulating the halls with unsteady gait et assisted by 1:1 RANCH HAND SUPERVISOR. VSWNL. Health assessment with no abnormalities noted at present time. Denies SI/HI @ present time. Socialized in dayroom with peers until HS. Currently resting in bed with eyes closed. Will continue to monitor per protocol.
--- NOTE | 2019-12-13 14:15 | NUR ---
Jeremiah setn updates to [facility]
[2019-12-13 21:51] VITALS: BP 113/68
--- NOTE | 2019-12-14 00:07 | NUR ---
Assumed care of patient this pm shift. Patient up with walker roaming the halls. Patient in good spirits. Patient calm and impulsive. Patient is redirectable. Patient is in clean clothes, his hair is deshoveled. Patient takes medications with applesauce. Patient has a 1:1 sitter. Patients assessment shows clear breath sounds, active bowel sounds, and s1 s2 heard with auscultation. Patient denies hi/si. Patient states that he does have pain in his shoulder area. Patient given tylenol to help the pain. We will continue to monitor.
[2019-12-14 09:06] VITALS: BP 106/64
--- NOTE | 2019-12-14 12:43 | NUR ---
Lying semi prone in bed with sitter at bedside. Alert and orientated to person and place. Able to state month but repeatedly stated it was 12/03 instead of 12/13. When asked why he was here he stated he was a political prisoner. Some confused speech. Breath sounds clear t/o, bilaterally equal. Reg HR auscultated. Color pink with brisk capillary refill and palpable peripheral pulses. Requires assistance with voiding. Active bowel sounds over soft, flat abdomen. Eye gtts instilled without difficulty. Fast, sometimes unsteady gait with walker, impulsive. Currently eating lunch with aid of sitter.
--- NOTE | 2019-12-14 13:54 | NUR ---
Sw met with pt 1:1 and he was harsha to have a long and detailed conversation about his children, and his career. This inlcuded travel and his disease process. 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 This event lasted 45 minutes in my office.
[2019-12-14 20:00] VITALS: BP 91/69
[2019-12-15 00:09] VITALS: BP 106/64
--- NOTE | 2019-12-15 00:45 | NUR ---
Assumed care of patient this pm shift. Patient in good spirits walking the halls with a 1:1. Patient is very cooperative and redirectable. Patient denies hi/si. Patient does have shoulder pain intermittently. Patient takes medications crushed in yogurt. Patient needs reminders to use his walker. Patients assessment shows clear breath sounds, active bowel sounds, and s1 s2 heard with auscultation. Patient has a 1:1 sitter. We will continue to monitor patient.
[2019-12-15 09:22] VITALS: BP 106/64
--- NOTE | 2019-12-15 18:01 | NUR ---
AAOX3 GAIT SHUFFLING WITH A WALKER. SPEECH SOMETIMES DIFFICULT TO UNDERSTAND. SMILED AND LAUGHED WHEN TALKING ABOUT HIS SON SAHRA. NEEDS CONSTANT REMINDER TO AMBULATE WITH WALKER. GOOD APPETITE FOR MEALS, ATE ALL MEALS IN DINNING ROOM. HAD 1:1 SITTER ALL DAY. GAVE ONE DOSE PRN HALDOL FOR INCREASED AGITATION.
[2019-12-15 19:47] VITALS: BP 160/76
[2019-12-15 20:00] VITALS: BP 160/76
--- NOTE | 2019-12-16 03:23 | NUR ---
ASSESSMENT: PT REMAIN AELRT AND ORIENT TIMES ONE. CALM AND COOPERATIVE DURING THIS SHIFT. 1:1 SITTER REMAIN WITH PT UNTIL HE WAS SLEEPING WELL WITH BED ALARM SET. VSS, AFEBRILE. DENIES PAIN, SOB AND N/V. TOOK MEDS WELL, REFUSED MIRALAX. WILL CONTINUE TO MONITOR.
[2019-12-16 06:17] LABS: ABSOLUTE NEUTROPHILS 2.6 thou/uL (1.4-8.2); BASOPHILS 0.6 % (0.0-2.0); EOSINOPHILS 4.7 % (0.0-3.0); HEMATOCRIT 35.9 % (42.0-52.0); HEMOGLOBIN 12.1 gm/dL (14.0-18.0); LYMPHOCYTES 28.2 % (24.0-44.0); MCH 30.1 pg (26.0-34.0); MCHC 33.8 g/dL (28.0-37.0); PLATELET COUNT 166 thou/uL (150-400); POLYS 58.5 % (36.0-66.0); RBC 4.04 mil/uL (4.50-6.00); RDW 13.4 % (10.5-14.5); WBC 4.5 thou/uL (4.0-11.0)
[2019-12-16 06:34] LABS: ALBUMIN 3.2 g/dL (3.4-5.0); ANION GAP < 0 mmol/L (7-16); BUN 24 mg/dL (7-18); CALCIUM 8.4 mg/dL (8.5-10.1); CHLORIDE 120 mmol/L (98-107); CO2 32 mmol/L (21-32); CREATININE 0.9 mg/dL (0.7-1.3); GLUCOSE 72 mg/dL (74-106); SGOT 12 U/L (15-37); SGPT 14 U/L (30-65); SODIUM 143 mmol/L (136-145); TOTAL BILIRUBIN 0.4 mg/dL (<0.1-1.0); TOTAL PROTEIN 5.6 g/dL (6.4-8.2)
[2019-12-16 07:51] VITALS: BP 113/63
--- NOTE | 2019-12-16 11:46 | NUR ---
Assumed care at 0700. He fed himself breakfast. He knows the date and his name. He repeatedly talks about leaving on a plane today. He has been reminded that he would not be leaving today and that the planes were not taking off today. He asked to talk with his on the phone and did so for about 20 minutes. The 1:1 is being loosened on a trial basis. He tends to start walking fast for no known reason and requires redirection to slow down.
[2019-12-16 15:46] VITALS: BP 113/63
[2019-12-16 20:02] VITALS: BP 155/94
--- NOTE | 2019-12-17 05:28 | NUR ---
Assumed care of pt @ 1900. Pt calm et cooperative this shift. Took medications whole in applesauce. Ambulates the halls ad jorden with assistance of walker. Pt has to occasionally be reminded to use the walker. VSWNL. Health assessment with no abnormalities noted at present time. Denies SI/HI @ present time. Currently resting in bed with eyes closed. Will continue to monitor per protocol.
[2019-12-17 07:42] VITALS: BP 130/70
--- NOTE | 2019-12-17 09:07 | NUR ---
Date of Admission: 11/27/19 Date of Activity Therapy Assessment: 11/30/2019 Activity Goal: 1:1, engagement in the milieu Initial Goal: Impulse Control Weekly progress towards goal: Did not achieve Group participation level: N/A-COVID19 Behaviors observed: Exit seeking. Wandering. Confused and disoriented. On 1:1 due to impulse control. Behaviors are improving. Pt enjoys cards and word searches and can focus on one of these activities for a short time. Plan: No change towards goal
--- NOTE | 2019-12-17 15:18 | NUR ---
UPON INITIAL ASSESSMENT THIS AM IS NOTED TO BE AMBULATING IN HALLWAY WITH ROLLER WALKER-GREETED STAFF PLEASANTLY AND RESPONSES PROVIDED TO QUESTIONS ASKED ARE APPROPRIATE AND CONVERSATION IS GOAL DIRECTED. COMPLIENT WITH ALLOWING AM VS TO BE TAKEN -AND 0900 MEDICATIONS WITHOUT RESISTANCE.FED SELF BREAKFAST. AT APPROX. 1230 NOTED TO HAVE INCREASE IN RESTLESSNESS,AGITATION,PACING RAPIDLY IN HALLWAYS,RUNNING WALKER INTO HERNANDES,ENTERING OTHERS ROOMS-WAS ABLE TO BE REDIRECTED BY 1;1 STAFF,REFUSED LUNCH STATING HE WAS LEAVING AND STATES TO THIS NURSE "I AM LOOKING FOR A SCREWDRIVER ABOUT THIS BIG(GESTURING WITH HANDS) WHEN ASKED WHAT HE WOULD USE IT FOR STATES "I AM GOING TO BREAK OUT THAT WINDOW AND GET OUT OF HERE ONCE AND FOR ALL" AT APPROX 1315 BECAME UNDIRECTABLE DESPITE ATTEMPTS OF 2 STAFF AT SIDE AT ALL TIMES-DR. RIVERA CONTACTED AND ORDER RECEIVED. HALDOL 7.5MG IM ALONG WITH 1MG ATIVAN GIVEN IM IN LVG WITH MINIMAL RESISTANCE. REMAINS ON CONSTANT OBSERVATION.
[2019-12-17 21:53] VITALS: BP 130/70
--- NOTE | 2019-12-17 23:52 | NUR ---
PATIENT HAS BEEN SLEEPING IN BED SINCE I BEGAN SHIFT AT 1900. HE WAS AROUSABLE FOR HIS NIGHT TIME MEDS. PATIENT WAS AGITATED AND NOT WANTING TO TAKE THEM. WAS ABLE TO EVENTUALLY GET HIM TO SWALLOW THEM BUT WAS SPITTING THEM OUT AT FIRST. PATIENT IS CURRENTLY SLEEPING NOW. HE HAS 1:1 SITTER WITH HIM WHILE AWAKE AND MOST OF TIME WHEN HE SLEEPS D/T IMPULSIVITY AND HIGH FALL RISK. PT VERY UNPREDICATBLE IN HIS BEHAVIORS. PATIENT DID DENY PAIN. BOWEL SOUNDS ACTIVE. HRR, LUNGS CTA. VSS. BED IN LOW POSITION AND BED ALARM ON. CONTINUING TO MONITOR AND ASSESS STATUS AND SAFETY.
[2019-12-18 08:42] VITALS: BP 139/93
--- NOTE | 2019-12-18 13:09 | NUR ---
DISCHARGE INSTRUCTIONS REVIEWED WITH PATIENT AND REPORT CALLED TO [facility] . GLASSES AND UPPER DENTURES SENT WITH PT WELL HOME MEDS BELONGINGS FROM SECURITY. PT DC'D VIA WC ACCOMPNIED BY NURSING STAFF. DENIES SI/SH/HI AT TIME OF DC. STATES HE IS "HAPPY" TO GO AND DENIES C/O PAIN/DISCOMFORT.
--- NOTE | 2019-12-18 17:53 | NUR ---
Assumed patient care at 0715. Patient has been agitated, impulsive throuhout the day. Patient has become physically aggressive, requiring STAT doses of Haldol and Ativan IM x's 2. Patient was also in the Quiet Room this am, where he continued to be verbally and physically aggressive. Medications were not effective until approximately 1.5 hours after administration. Patient to start on Depakote Sprinkles at 2100 this evening. No medical concerns. Will continue to monitor.
[2019-12-18 20:00] VITALS: BP 156/67
[2019-12-18 20:10] VITALS: BP 156/67
--- NOTE | 2019-12-19 02:31 | NUR ---
PATIENT AWAKENED THIS EVENING FOR PHYSICAL ASSESSMENT. HE WAS CALM AND COOPERATIVE. HE HAD C/O OF LEFT SIDE HEADACHE. 4/10 ON PAIN SCALE. TYLENOL 650MG PO GIVEN TO HIM WITH HIS HS MEDS. PATIENT STILL GROGGY FROM PRN INJECTIONS FOR BEHAVIOR IN EARLIER DAY. PATIENT WAS UP TO THE BATHROOM AND HAD ICE CREAM FOR SNACK. VSS. NO EDEMA NOTED. PATIENT FELL BACK TO SLEEP. CONTINUES TO HAVE 1:1 SITTER WITH HIM. BED IN LOW POSITION AND BED ALARM ON. CONTINUOUS OBSERVATION TO CHECK FOR STATUS AND SAFETY.
--- NOTE | 2019-12-19 10:11 | NUR ---
PIERCE spoke with diya and provided an update. D/C plan is still going back to [facility] but diya thinks they are trying to find this pt another place to go. They have not provided a 30 day notice nor have they admitted they will not take him back.
--- NOTE | 2019-12-19 12:39 | NUR ---
PT. IN HIS ROOM STOMPING IN URINE ON THE FLOOR. HE THEN TOOK HIS W/C AND WAS ATTEMPTING TO HIT STAFF WITH IT. HE PICKED UP THE WALKER AND RAN DOWN THE URIBE SEVERAL TIMES. HE THEN WAS TRYING TO HIT STAFF AND HURT THEM. HE WAS TAKEN TO THE QUIET ROOM AND LOCK IN. SECURITY CAME AND HELPED TO GIVE IM ATIVEN 5 MG. HE REMAINS IN THE QUIETROOM.
--- NOTE | 2019-12-19 17:15 | NUR ---
HAD 1:1 SITTER ALL SHIFT. AMBULATES WITH SHUFFLING GAIT. USES ROLLER WALKER AND W/C FOR MOBILITY. HAD ONE EPISOIDE OF AGITATION. TOOK ALL MEDS CRUSHED IN JELLY.
[2019-12-19 19:41] VITALS: BP 137/90
[2019-12-19 22:47] VITALS: BP 137/90
--- NOTE | 2019-12-20 00:32 | NUR ---
Assumed care of patient this pm shift. Patient walking halls with sitter this evening. Patient is very impulsive. Patient is calm and cooperative and is redirectable. Patient denies pain. Patient denies hi/si. Patient took medications whole. Patients assessment shows clear breath sounds, active bowel sounds, and s1 s2 heard with auscultation. Patient has a 1:1 sitter. We will continue to monitor.
[2019-12-20 09:34] VITALS: BP 128/74
--- NOTE | 2019-12-20 10:15 | NUR ---
1014 RESUMMEDCARE FROM OVERNIGHT SHIFT THIS AM, PATIENT AT BREAKFAST TOOK MEDICATION WITHOUT INCIDENCE, PATIENT ABDOMEN SOFT ROUND BOWEL AOUNDS PRESENT, PATIENT CANNOT TRLL YOU IF HE HAS SI/HI/AH/VH AT PRESENT. PATIENT WALKS AROUND WITH WALKER AND AT TIMES WE HAVE TO TELL PATIENT TO SLOW DOWN. PATIENT IS REDIRECTABLE WHEN YOU HAVE TO GIVE HIM DIRECTIONS. NO BEHAVIOR PATIENT AT PRESENT WILL CONTINUE TO MONITOR PATIENT FOR SAFETY AND BEHAVIORS.
--- NOTE | 2019-12-20 13:20 | NUR ---
PIERCE sent updates to [facility], and reported that pt is not ready to d/c and we are still working on a d/c back there.
[2019-12-20 19:54] VITALS: BP 174/87
--- NOTE | 2019-12-20 23:56 | NUR ---
Assumed care of patient this pm shift. Patient in great spirits, happy to see RN. Patient ambulating in the halls with walker. Patient needs to be reminded to utilize walker. Patient states that he enjoys word puzzles. Patient is in clean clothes and very cooperative with cares. Patient denies pain. Patient denies hi/si. Patients assessment shows clear breath sounds, active bowel sounds, and s1 s2 heard with auscultation. Patient takes medications best when they are crushed in applesauce or pudding. We will continue to monitor.
[2019-12-21 07:30] VITALS: BP 174/87
--- NOTE | 2019-12-21 08:49 | NUR ---
PT UP WALKING AROUND WITH 1:1 CARE FOR SAFETY. PT USEING WALKER. PT SOMETIMES PICKS UP WALKER AND WALKS WITH IT. PT ORIENTED TO SELF. PLACED CRUSHED MEDS IN APPLESAUCE. PT SPIT INTO WATER, PT DRANK THE WATER. PT DID SWALLOW THE NON-CRUSHED MEDS WITHOUT ANY ISSUES. PT COMPLAINING OF LOWER BACK IS SORE.
--- NOTE | 2019-12-21 16:46 | NUR ---
PT STILL HAS 1:1 CARE. PT DOES GET UP QUICKLY FROM THE CHAIR AND SOMETIMES USES WALKER AND OTHER TIMES DOESN'T. PT TOOK MEDS FOR THIS COAL HIKER CRUSHED IN PUDDING. PT DID COLOR BY NUMBER TODAY AND WORKED ON FIND A WORDS.
[2019-12-21 19:30] VITALS: BP 112/67
--- NOTE | 2019-12-21 22:33 | NUR ---
Care assumed of patient at 1914: Patient seated in dayroom at start of shift with 1:1 staff member. Patient appeared restless, pacing, moving from table to table. Impulsive with movements, forgetting to use his walker. When approached, patient was fairly easy to re-direct. Patient alert and oriented to person and place. Confused and forgetful. Patient did ask to go outside and take a walk before the sun went down. Patient re-directed on current location. Patient offered a word search but he was not able to focus on starting it. Patient saw another peer upset and tearful. Patient approached the other peer and held their hand, speaking with them, in an attempt to console them. Patient denies pain or discomfort. Denies SI/HI/AH/VH. Patient was able to have interactive conversation with staff. Spoke of his job, , children. Patient became more confused as the night progressed. Patient did request to use the phone around 2044 because his "flight just got in, the dogs are home alone and they need to be let outside and fed". Patient needed re-direction to current location and was then able to be assisted to bed. Patient took HS medication crushed without difficulty. Ate 100% HS snack. No aggression or agitation shown. Primarily remains impulsive when standing, walking and approaching others. Patient was able to fall asleep at a reasonable hour and is resting quietly at this time.
[2019-12-22 08:10] VITALS: BP 100/61
--- NOTE | 2019-12-22 08:28 | NUR ---
PT SITTING IN W/C TODAY. PT ABLE TO WALK WITH STAND-BY ASSIST. PT DENIES PAIN. PT HAS 1:1 FOR SAFETY. PT IS IMPULSIVE AND WILL JUMP UP WHEN HE IS WANTING TO AMBULATE.
[2019-12-22 09:07] VITALS: BP 100/61
--- NOTE | 2019-12-22 10:40 | NUR ---
PT WAS ON THE PHONE WHEN ANOTHER PT SNACHED PHONE FROM HIS HANDS. PT HAS SCRATCH TO LEFT HAND ON RING FINGER TOP NUCKLE. DR. HERRING AWARE.
--- NOTE | 2019-12-22 11:00 | NUR ---
AT THIS TIME IS A TRIAL OFF 1:1 CARE. PT WORKING ON PUZZLE AT THIS TIME WITH RECREATION THERAPIST.
--- NOTE | 2019-12-22 16:21 | NUR ---
PT WAS WALKING FAST IN DINING ROOM. PT ENCOURAGED TO USE WALKER, PT CARRIES WALKER AT TIMES. PT IS STRAIGHTENING UP PAPERS IN HIS ROOM. PT IS MORE UNDERSTANDABLE WITH SPEECH.
[2019-12-22 19:28] VITALS: BP 137/78
--- NOTE | 2019-12-22 22:44 | NUR ---
Care assumed of patient at 1915: Patient pacing about dayroom and hallways at start of shift. Patient not compliant with using with walker. When re-directed, patient will use his walker or carry it. Patient alert and oriented to person only. Patient feels that he is in [place]. Patient also having delusions about a "baby". Another peer has been holding blankets which she refers to as her baby. This patient feels that the baby is in harm, the "authorities" need to be called. Patient was able to be re-oriented to current location and that there was not a live baby for approximately 10 minutes. Patient then approached nurse worried about the baby. Required several re-directions this evening. Patient also attempted to get into the nurses station several times to be able to call for help for said baby. Patient was able to have conversation about his daughters being grown and on their own and that they are safe. Patient even spoke with daughter Marie on the phone this evening. This seemed to calm patient also. Patient took HS medication crushed per his request. Scratch mejía present to bilateral hands. No redness, swelling or drainage observed. Topical ointment applied. No aggression or agitation observed. Denies SI/HI/AH/VH. Denies depression and anxiety. Ate 100% HS snack without difficulty. Denies pain or discomfort. Currently remains on 12 minute safety checks. Bed alarm set. Fall precautions in place. Patient was assisted to bed and has been somewhat restless since laying down in bed. Sleeping off and on. Remains impulsive. Staff did respond to bed alarm sounding. Patient was standing next to his bed, hiding behind the wall. Patient was able to be re-oriented to current time and location and assisted back to bed.
[2019-12-23 09:12] VITALS: BP 152/85
[2019-12-23 09:52] VITALS: BP 152/86
--- NOTE | 2019-12-23 10:02 | NUR ---
1000 RESUMMED CARE FROM OVERNIGHT SHIFT THIS AM, PATIENT IN ROOM RESTING QUIETLY. WE GOT PATIENT UP FOR BREAKFAST AND CLEANED PATIENT UP HAD INCONTINENT EPISODE. PATIENT HAS SMALL AREA ON LEFT BUTTOCK LOKS LIKE A RUG BURN. HAS NEOSPORIN TO AREA. PATIENTS ABDOMEN SOFT ROUND BOWEL SOUNDS PRESENT IN ALL 4 QUADRANTS. LUNGS CLEAR PATIENT DENIES SI/HI/AH/VH AT PRESENT, PATIENT IS UP AD KIKI WITH A WALKER. PATIENT WANTED MEDS CRUSHED THIS AM BUT AT 10:00 HE TOOK MEDS WHOLE. WILL CONTINUE TO MONITOR PATIENT FOR SAFETY AND BEHAVIORS.
--- NOTE | 2019-12-23 17:18 | NUR ---
SW met with patient 1:1 in lieu of group due to COVID-19 restrictions. Patient engaged with SW. He was focused on getting a rental car so he could leave the hospital. He expressed some frustration due tremors in his right arm. SW provided support.
[2019-12-23 19:32] VITALS: BP 139/79
--- NOTE | 2019-12-23 22:23 | NUR ---
Care assumed of patient at 1915: Patient pacing the halls and dayroom at start of shift. Needed several reminders to use walker this shift. Alert and oriented to person, place and time at initial time of assessment. Frequent confusion and forgetfulness observed. Patient did report generalized pain "aching all over". Provided PRN Tylenol. Denies anxiety and depression. Denies SI/HI/AH/VH. However, patient was observed pulling on shirt and attempting to remove shirt. When asked what patient was doing, he stated that there was a spider in his shirt, then stated that there was a barbed wire in his shirt. Patient became more confused as night progressed. Patient looking around unit for his , exit seeking stating that he has to get to his . Patient restless, impulsive, needing constant re-direction. Patient took HS medication crushed, per his request. Patient ate 50% HS snack. Patient continent of bladder, taking himself to the bathroom with min assist x1. Patient became more resistive to any assist as the night progressed. Staff assisted patient to bed x4 due to him falling asleep on the couch. Patient was able to fall asleep for less than 5 minutes in bed, then started to pace halls again. During later assessment, patient was only able to state his name and that he "has to get out". Due to signs of anxiety, nurse administered PRN Ativan PO. Patient is currently resting on the couch with staff supervision.
[2019-12-24 07:34] VITALS: BP 96/64
--- NOTE | 2019-12-24 08:48 | NUR ---
Date of Admission: 11/27/2019 Date of Activity Therapy Assessment: 11/30/2019 Activity Goal: Impulse Control Initial Goal: 1:1, engagement in the milieu Weekly progress towards goal: Did not achieve Group participation level: N/A due to COVID19 Behaviors observed: Pt participated in minimal 1:1 sessions this week. Pt has a very unsteady gait and often picks up his walker. Pt will sit and work on activity if he enjoys it. He seems to enjoys music and art. Pt has still been seen wandering the unit at times. Plan: No change towards goal
[2019-12-24 09:46] VITALS: BP 96/64
--- NOTE | 2019-12-24 10:01 | NUR ---
SW faxed updates to [facility].
--- NOTE | 2019-12-24 10:21 | NUR ---
1020 RESUMMED CARE FROM OVERNIGHT SHIFT THIS AM, PATIENT APPEARED TO BE A LITTLE SLEEPY THIS AM. PATIENT ATE BREAKFAST TOOK MEDICATION CRUSHED WITHOUT INCIDENCE. THEN WAS LYING DOWN ON COUCH IN DAY ROOM, PATIENTS ABDOMEN SOFT ROUND. BOWEL SOUNDS PRESENT LUNGS CLEAR. PATIENT DENIES SI/HI/AH/VH AT PRESENT PATIENT ASKED TO LIE DOWN IN ROOM. PATIENT IS RESTING COMFORTABLY IN ROOM WILL CONTINUE TO MONITOR PATIENT FOR SAFETY AND BEHAVIORS.
[2019-12-24 11:22] VITALS: BP 138/74
--- NOTE | 2019-12-24 13:00 | HC ---
[facility] [place] [address] CONSULTATION Name: EMERSON MCCRACKEN JR Room #: 525B-B ADM IN M.R.#: [id number] Admission: 11/27/19 Attend Phys: Za Flynn MD Discharge: Date of : 54 Report #: [id number] THIS REPORT FOR: cc: Albert Carr MD,Bora Naranjo MD, MD ~ CC: Albert Flynn DATE OF SERVICE: 12/23/2019 WOUND CARE CONSULTATION NOTE REASON FOR CONSULTATION: Wound of left lower back. HISTORY OF PRESENT ILLNESS: The patient is a 69-year-old gentleman, recently discharged from inpatient medical unit on 11/26 after being managed for acute encephalopathy and autonomic dysfunction. The patient has some difficulty walking, walks with a walker. He has severe dementia and encephalopathy. The patient has suffered a recent fall and trauma to the corner of his left eye and left lip, which are healed. Wound care was asked to see him due to the fact it was noted he has a wound of his left lower back. PAST MEDICAL HISTORY: Acute encephalopathy, autonomic dysfunction, severe dementia. ALLERGIES: ELAVIL, ROCEPHIN, MIRAPEX, REQUIP, AND AMBIEN. MEDICATIONS: Include carbidopa/levodopa, entacapone, vitamin D3, finasteride, lactulose, acetaminophen, tramadol, hydrocodone, lorazepam, and trazodone. REVIEW OF SYSTEMS: Not obtainable. PHYSICAL EXAMINATION: GENERAL: Shows a tall, thin, pale gentleman with some difficulty walking, walks with a walker. HEENT: Mucous membranes are moist. NECK: Supple. LUNGS: Respirations unlabored. ABDOMEN: Soft. EXTREMITIES: Examination of the patient's back shows a 1.4 x 1.2 cm open wound of the left lower back at the level of the hips. This appears to be an abrasion. This has yellowish brown surface exudate adherent on the bandage. It is not cellulitic. IMPRESSION: [facility] [address] [place] [address] CONSULTATION Name: EMERSON MCCRACKEN Room #: 525B-B [facility] IN ..#: [id number] Admission: 11/27/19 Attend Phys: Za Flynn MD Discharge: Date of : 54 Report #: [id number] 1. Severe dementia. 2. Encephalopathy. 3. Parkinson disease. 4. Immobility with difficulty walking. 5. Superficial abrasion of left lower back. PLAN: We will simply dress this wound with a Mepilex absorbent bandage, change daily. No antibiotic ointment needed. Wound care team will follow. <ELECTRONICALLY SIGNED> By: Bora Rhodes MD 12/24/19 [id number] Bora Rhodes MD /nt
[2019-12-24 20:00] VITALS: BP 93/49
[2019-12-25] VITALS (7 sets, daily range): BP systolic 89–178; BP diastolic 46–84
--- NOTE | 2019-12-25 04:59 | NUR ---
ASSUMED CARE ON 12/24/19 @ 1915, AMBULATING IN THE HALLWAY AND MILEU USING A WALKER. SOMETIMES TRIES TO GO IN OTHER PATIENT'S ROOMS. REDIRECTABLE ALTHOUGH CONTINUES TO WALK AT A FAST PACE, AND SOMETIMES DOES NOT USE THE WALKER. COOPERATED WITH ASSESSMENT, HRRR, LUNGS CTA, ABD NORMOACTIVE BOWEL SOUNDS NOTED. TAKES MEDS WHOLE WITH NECTAR THICK BEVERAGE. NOTED TO BE DROOLING SALIVATION. TREMOR NOTED IN HANDS. IN BED AT THIS WRITING, EYES CLOSED, RESPIRATION EVEN AND UNLABORED. BED IN LOW POSITION.
--- NOTE | 2019-12-25 11:46 | NUR ---
PT. GOT UP, ATE BREAKFAST. HE WAS DISCHARGED AT 1035 WITH ALL OF HIS BELONGINGS, CLOTHING, D.C INSTRUCTIONS, MED. SCRIPTS. HE WAS PLACED IN A W/C AND TAKEN TO THE WAITING W/C VAN. HE WAS TAKEN TO [facility]. REPORT WAS CALLED TO DON. OSCAR
--- NOTE | 2019-12-25 17:08 | NUR ---
ASSUMED CARE AT 0700 TODAY. PT. DID NOT GET UP UNTIL AFTER BREAKFAST. SHE THEN GOT UP AND STARTED ROAMING THE HALLS, REQUIRING SOME REDIRECTION. HE TOOK HIS MEDS WITHOUT PROBLEMS NOTED. HE WAS OFTEN REDIRECTED FROM HANGING AROUND OTHER PEERS THAT MAY BE ANNOYED BY HIM OR PEOPLE HE ANNOYS. HE WAS STANDING BY THE NURSES STATION AT 1430 WHEN HE BENT FORWARD, LOST SOME FOOTING AND FELL WITH HIS FACE AGAINST THE GLASS OF THE NURSES STATION. HE WAS SHAKEN UP, BUT WAS NOT HURT. HE WAS GIVEN ATIVAN AND HALDOL IN HOPES TO CALM HIM DOWN BEFORE HE BECOMES TOO RESTLES. HE TOOK THE MEDICATIONS WITHOUT PROLEMS.
--- NOTE | 2019-12-26 00:06 | NUR ---
Assumed care of patient this pm shift. Patient walking the halls. Patient very impulsive. Patient is in good spirits, calm and cooperative. Patient takes medications best crushed in pudding. Patient denies pain. Patient denies hi/si. Patients hair is deshoveled, wearing hospital clothes. Patients assessment shows clear breath sounds, active bowel sounds, and s1 s2 heard with auscultation. We will continue to monitor.
[2019-12-26 07:30] VITALS: BP 136/72
--- NOTE | 2019-12-26 10:56 | NUR ---
ASSUMED CARE OF PATIENT AT THIS TIME, PATIENT SITTING ON COUCH IN DAYROOM. PATIENT IS CALM AND QUIET. WILL CONTINUE TO OBSERVE.
--- NOTE | 2019-12-26 16:02 | NUR ---
PATIENT HAS BEEN ON UNIT - WANDERING AROUND - ATTEMPTING TO GET OUT AT EXIT DOORS. BANGING AND LEANING ON DOOR. PATIENT HAS HAD TO BE REDIRECTED SEVERAL TIMES. APPEARS AFTERNOON PROGRESSES HE BECOME INCREASINGLY RESTLESS - NO AGITATION OR AGGRESSION NOTED - BUT DOES NEED ALOT OF REDIRECTION.
--- NOTE | 2019-12-26 17:15 | NUR ---
WOUND TO LOWER BACK IS CIRCULAR IN SHAPE, RED IN COLOR, NO DRAINAGE NOTED. WOUND CLEANED WITH NS. NEOMYCIN APPLIED TO AREA THEN COVERED WITH A BOARDERED DRESSING. SLIGHT PAIN NOTED WHEN CLEANING AREA. PATIENT DENIES PAIN MED AT THAT TIME. PATIENT IS CALM AND COOPERATIVE WITH CARES. WILL CONTINUE TO OBSERVE
[2019-12-26 19:50] VITALS: BP 133/77
[2019-12-26 19:54] VITALS: BP 133/77
--- NOTE | 2019-12-27 03:30 | NUR ---
12-26-19 CARE TRANSFERED AT 1915; Noted pt was exiting seeking at beginning of shift but was easily redirected to day room for HS snack. 1950 PT AAOx1, calm; pt reported having BM today. Per shift report pt has wound on back, noted dressing clean, dry and intact. Pt had zero difficulties with medication admin. and pt denies any pain and SI/HI. Please refer to nursing interventions for more detail information. Zero acute distress noted.
[2019-12-27 06:26] LABS: HEMATOCRIT 38.9 % (42.0-52.0); HEMOGLOBIN 13.1 gm/dL (14.0-18.0); MCH 30.2 pg (26.0-34.0); MCHC 33.7 g/dL (28.0-37.0); MCV 89.7 fL (80.0-100.0); RBC 4.33 mil/uL (4.50-6.00); RDW 13.4 % (10.5-14.5); WBC 4.9 thou/uL (4.0-11.0)
[2019-12-27 06:34] LABS: CALCIUM 8.8 mg/dL (8.5-10.1); CREATININE 0.9 mg/dL (0.7-1.3); POTASSIUM 3.9 mmol/L (3.5-5.1)
[2019-12-27 07:26] VITALS: BP 91/51
[2019-12-27 08:48] VITALS: BP 91/51
--- NOTE | 2019-12-27 09:00 | NUR ---
ASSUMED CARE OF PATIENT AT 0700 THIS MORNING. PT. GOT UP, DRESSED AND ON THE UNIT FOR MEALS. HE SAT AT BREAKFAST WITH HIS EYES CLOSED. HE DID TAKE HIS MEDICATIONS WITH SOME COACHING. HE SEEMED TO HOLD THE MEDICATIONS IN HIS MOUTH FOR A WHILE AND NEEDED ENCOURAGED TO SWOLLOW THEM. HE DID EVENTUALLY SWOLLOW THEM. NO PROBLEMS NOTED OR VOICED THIS MORNING. WAS COOPERATIVE WITH ASSESSMENT. HRR, LUNGS CTA, ABD SOFT. HE STATES HE HAD A BM YESTERDAY MORNING. PEDAL PULSES PRESENT BILATERALLY. DENIES PAIN.
--- NOTE | 2019-12-27 11:08 | NUR ---
JEREMIAH faxed updates and called and left a VM with Dr Flynn for [facility]. Jeremiah then called back immediately and spoke with Guerline and she stated that there needed to be another " big meeting about this " and will email me some dates and times. She also stated " hwo are we supposed t quaranteen him for 14 days". This worker asked what they had done in the past and to come up with a plan, as that is his home. Guerline stated that they needed to quaranteen him per CDC guidelines. JEREMIAH will investigate that if this pt is eligible for a COVID 19 test to avoid the quaranteen process.
[2019-12-27 19:32] VITALS: BP 116/72
[2019-12-27 19:50] VITALS: BP 116/72
--- NOTE | 2019-12-28 03:02 | NUR ---
12-27-19 CARE TRANSFERED AT 1915; 1950 PT SITTING IN DAY ROOM WITH EYES OPEN. PT AAOX1, PT EXHIBIT EXITING SEEKING BEHAVIOR, BUT HAS BEEN EASILY REDIRECTED AND COOPERATIVE DURING ASSESSMENT. PT HAD ZERO DIFFICULTIES TAKING MEDICATION. PLEASE REFER TO NURSING INVERVENTIONS FOR MORE DETAIL INFORMATION. ZERO ACUTE DISTRESS NOTED.
[2019-12-28 07:30] VITALS: BP 115/87
--- NOTE | 2019-12-28 11:37 | NUR ---
0715 Sleeping in bed without s/o distress. Awakens easlily. Alert to name only, confused speech to rest of orientation questions. Denies SI/HI. Unsteady gait, refused to open eyes d/t crusting. Face washed. Calm and compliant, ate majority of breakfast without difficulty. Breath sounds clear t/o. Reg HR auscultated. Color pink with brisk capillary refill and palpable peripheral pulses. No edema noted. Continent in toilet of yellow urine. Large soft, brown stool. Active bowel sounds over soft, flat abdomen. 1130 Up ambulating in unit with much steadier gait. Needs frequent reminders to slow down. Showered and hair shampooed. No s/o distress.
--- NOTE | 2019-12-28 12:47 | NUR ---
PIERCE has sent 3 emails and now a VM for diya requesting f/u for d/c instructions.
--- NOTE | 2019-12-28 14:49 | NUR ---
12/27/19 Jeremiah spoke cheri Cunha and Kelli Daniels at [facility] and they reported that the Medicail Driector has stated that will not treat this pt if he returns to [facility], their medicail director at [facility] has denied his admission and they cannot meet his needs. Jeremiah relayed this to Dr Blanc, Beverly Bailey and Jennifer barrera CM. It was decided that pt will not be going backt o [facility]. Jeremiah will left multiple emials and VM asking the family to clarify [facility] funding source and d/c plan.
--- NOTE | 2019-12-28 15:24 | NUR ---
Jeremiah spoke with pt son and he stated that they had not completed a medicaid ambrosio and Sw suggested [place], as there are more places to choose from. Jeremiah also spoke with Kelli from and sent referral to [facility], [facility] and [facility], and [facility]. JEREMIAH spoke to all of their Sw and provided an update .
--- NOTE | 2019-12-28 16:09 | NUR ---
Jeremiah spoke at length with Woo Culver in [place] about placement . It was agreed that pt cannot go back to [facility], and she advised that if the pt was " rediagnosed" and did not have dementia- then he might qualify for a level II placement in [place]. And level II placements might be able to meet his needs better than memory care. But in the meantime, Jeremiah will send referrals to [place] memory care. Woo number is [phone] [email or web address]
[2019-12-28 19:35] VITALS: BP 123/71
[2019-12-28 21:10] VITALS: BP 123/71
--- NOTE | 2019-12-29 01:10 | NUR ---
Assumed care of patient this pm shift. Patient very impulsive wandering around the unit. Patient needs reminded to use walker. Patient in good spirits calm and cooperative and smiling. Patient takes medications crushed in pudding. Patient denies pain. Patient denies hi/si. Patient up ad jorden with walker, sometimes continent of bowel and bladder. Patient will use the restroom if he needs to go. Patients assessment shows clear breath sounds, active bowel sounds, and s1 s2 heard with auscultation. We will continue to monitor.
[2019-12-29 08:34] VITALS: BP 135/79
--- NOTE | 2019-12-29 13:36 | NUR ---
Up ambulating with and without walker. Fast, regular gait. Alert and orientated X3. Calm and compliant with meds, taking crushed in pudding/yogurt. Interacts with staff and peers. Breath sounds clear t/o. Reg HR auscultated. Color pink with brisk capillary refill and palpable peripheral pulses. No edema noted. Active bowel sounds over soft, flat abdomen. Wound to area above R iliac crest pink with granulating tissue. Wound cleaned with NS and dressed with Optiform drsg.
[2019-12-29 19:29] VITALS: BP 135/73
--- NOTE | 2019-12-29 20:19 | NUR ---
ASSUMED CARE ON 12/29/19 @ 19:15, PATIENT ANXIOUS, PULLED THE ALARM, EXIT SEEKING. AMBULATES QUICKLY IN THE URIBE. INCONTINENT OF BLADDER. HRRR, LUNGS CTA, ABD N X 4 Q. A&OX 3.
[2019-12-30 00:58] VITALS: BP 135/73
--- NOTE | 2019-12-30 09:08 | NUR ---
PT UP NOW IN DINING ROOM. PT HAS EYES CLOSED, ENCOURAGED PT TO OPEN EYES. PT ABLE TO FEED SELF. PT TOOK MEDS NON-CRUSHED MEDS WHOLE, AND TOOK CRUSHED MEDS IN CREAM OF WHEAT. PT DENIES ANY PAIN. PT ENCOURAGED TO USE THE WALKER. PT STATED HE JUST WANTED TO GET OUT OF HERE ALIVE.
[2019-12-30 09:50] VITALS: BP 97/60
--- NOTE | 2019-12-30 10:00 | NUR ---
PT STANDING UP WITH EYES CLOSED. PT NEEDING TO USE BATHROOM. PT URINATED DOWN PANTS. PT DIDN'T MAKE IT TO HIS ROOM. PT ALSO WAS SITTING IN CHAIR FLIPPING WALKER AROUND. PT WAS HOLDING WALKER AND PLACING IT ON THE TABLE WHEN HE CAME TO DINING ROOM. PT NEEDS HELP WITH FOLLOWING DIRECTIONS, PT STANDS IN PLACE AND NEEDED ENCOURAGED TO WALK TO HIS ROOM TO CHANGE.
--- NOTE | 2019-12-30 11:11 | NUR ---
PT RUNNING DOWN URIBE WITH PLAY PHONE AND REGULAR CORDLESS PHONE. PT WAS PLAY PUNCHING AT STAFF AND OTHER RESIDENTS. PT WILL NOT GIVE PHONE TO STAFF. PT WAS MACARIO A SHOT OF HALDOL 5MG IM TO LEFT DELTOID. DR. HERRING NOTIFIED ABOUT HIS BEHAVIOR.
--- NOTE | 2019-12-30 16:49 | NUR ---
PT TALKED TO HIS DAUGHTER ON THE PHONE. TOLD HIM TO HAND PHONE BACK TO NURSE WHEN HE IS DONE WITH PHONE. DR. HERRING HER TO SEE HIM. PT DID HAND PHONE BACK TO NURSE WHEN HE WAS FINISHED. PT NOT USING WALKER EVEN WHEN ENCOURAGEMENT BY DR. HERRING. DRESSING IS CHANGED AT THIS TIME TO LEFT HIP AREA. CLEANED WITH SALINE AND APPLIED TRIPLE ANTIBIOTIC CREAM TO BLANCHABLE QUARTER SIZE AREA.
--- NOTE | 2019-12-30 17:07 | NUR ---
ADM LORAZEPAM 1MG PO X1 PER DR. HERRING PHONE ORDER.
[2019-12-30 19:26] VITALS: BP 143/91
--- NOTE | 2019-12-31 04:46 | NUR ---
Assumed care of patient @ 1900. Pt calm et cooperative this shift. Took medications whole in applesauce without difficulty. Ambulates the halls ad jorden with somewhat steady gait. VSWNL. Health assessment with no abnormalities noted at present time. Denies SI/HI. Pt appeared hard to redirect this shift but fell asleep in recliner in dayroom fairly early et slept for approximately an hour. Pt appeared to have less steady gait upon awakening et was finally redirected to room around 2100 et slept the rest of the noc. Currently resting in bed with eyes closed. Will continue to monitor per protocol.
[2019-12-31 07:36] VITALS: BP 140/89
--- NOTE | 2019-12-31 12:36 | NUR ---
0700 ASSUMED CARE OF PATIENT, PATIENT UP AMBULATING IN URIBE AT THAT TIME. 0730 PATIENT SITTING IN CHAIR IN DAYROOM WITH EYES CLOSED. PATIENT SLEEPY BUT EASILY AROUSABLE. MEDICATIONS GIVEN WITH APPLESAUCE. PATIENT NOTED AMB IN DAYROOM WITH EYES CLOSED, REDIRECTED PATIENT TO CHAIR. PATIENT FOUND IN BACK URIBE LYING ON FLOOR SLEEPING. WITH HELP FROM STAFF MEMBER PATIENT OFF GROUND AND TO BED. PATIENT LYING IN BED AT THIS TIME. WILL CONTINUE TO MONITOR.
--- NOTE | 2019-12-31 13:21 | NUR ---
PIERCE recieved a call from Pt's , Tutu Contreras. Mrs. Contreras wanted to know the Pt's discharge date and where Pt would be going. SW informed that Pt does not have a discharge date or a placement at this time. Mrs. Contreras believed that the Pt had been accepted to [facility]. SW looked at notes and confirmed there was no infomation stating the Pt had been accepted to [facility] or that a referral was sent. SW offered to send a referral to [facility]. Mrs. Contrersa stated she did not want a referral sent and wanted to wait until she spoke with KACY Cowan concerning the matter. I informed that Camryn will return on 01/02/2020, however any SW could assist in the matter. Mrs. Contreras was insistant on KACY Cowan helping her. Mr. Contreras also wanted the name of the nursing homes where referrals were sent. PIERCE provided Mr. Contreras the facilities referrals were sent per note on 12/28/2019. Mrs. Contreras also asked what were all the nursing homes in the area. PIERCE informed a list could be provided to her. Mrs. Contreras declined. Mrs. Contreras stated she would call back when Camryn was in. Mrs. Contreras had no further questions or concerns at this time.
--- NOTE | 2019-12-31 17:49 | NUR ---
PATIENT NOTED TO BE CALMER AT THIS TIME. ABLE TO COMMUNICATE BETTER NOW THAN EARLIER TODAY. ASKED PATIENT ABOUT THE NEED FOR COLLECTING URINE FOR A UA. PATIENT NOTIFIED CONTACT AGENT OF URINE IN HAT. SPECIMEN COLLECTED AND SENT TO LAB. PATIENT EASILY REDIRECTED AT THIS TIME. WILL CONTINUE TO OBSERVE
[2019-12-31 18:41] LABS: URINE BILIRUBIN NEGATIVE (Negative); URINE BLOOD NEGATIVE (Negative); URINE CLARITY CLEAR; URINE COLOR YELLOW; URINE GLUCOSE-RANDOM* NEGATIVE (Negative); URINE KETONES 1+ (Negative); URINE LEUKOCYTES NEGATIVE (Negative); URINE NITRITE NEGATIVE (Negative); URINE PROTEIN (DIPSTICK) TRACE (Negative); URINE SPECIFIC GRAVITY 1.025 (1.005-1.035); URINE UROBILINOGEN 0.2 E.U./dl (0.2-1.0)
[2019-12-31 19:38] VITALS: BP 159/83
--- NOTE | 2019-12-31 19:42 | NUR ---
Assumed care on 12/30 @ 19:15, ambulating throughout mileu. Cooperative with assessment. HRRR, LUNGS CTA BILAT, ABD NORMOACTIVE REPORTS BM TODAY. REPORTS RIGHT SIDE PAIN OF 5/10.
--- NOTE | 2019-12-31 21:47 | NUR ---
RUNNING RAPIDLY THRU THE HALLWAYS, CARRYING HIS WALKER. WHEN GETS TO THE DOORS, HITS THE DOORS REPEATEDLY, THEN RUNS RAPIDLY DOWN THE HALLWAY TO THE OTHER EXTERIOR UNIT DOOR, HITS IT REPEATEDLY. PO BENEDRYL 25MG AND LORAZEPAM 0.5MG PROVIDED IN APPLE SAUCE @ 2100, ALLOWS SELF TO BE LAID DOWN IN BED, CLOSES EYES. REPORTS THAT HE SEES AND HEARS TRAINS THAT FROM WHICH HE IS RUNNING. AFTER 20 MINUTES JUMPS OUT OF BED, PICKS UP THE MATTRESS AND TURNS IT SIDEWAYS ON THE BED FRAME, THEN JUMPS UP ON THE BED, GRABS THE STAFF MEMEBER WHO IS SITTING WITH PATIENT, HOLDS HER TIGHTLY BY THE WRIST, AND HOLLERS, "HELP BILL, THE NURSE HAS AHOLD OF HIM". SCREAMING, "THE FIRE, I NEED TO GET TO [place]" SECURITY CALLED TO THE FLOOR, STAFF FREED THE NURSE FROM THE PATIENT'S HOLD, RAN TO THE NURSES STATION, REACHED OVER HALF DOOR AND OPENED IT, WHILE SCREAMING THREATS, "IM GOING TO GET YOU" SECURITY LATER ARRIVED ON THE FLOOR, PATIENT AT THIS TIME HAD LAID ON THE FLOOR IN FRONT OF THE NURSES DESK, SECURITY X2 ASSISTED PT TO HIS ROOM, ASSISTED INTO BED. CALL PLACED TO DR HERRING AT 21:15, AGAIN @ 21:27. DR HERRING RETURNED THE CALLED @ 21:30 AND ORDERED THE PREVIOUS ORDER OF BENEDRYL 25MG IM BE GIVEN. ORDER FOR NASIR KANG RECEIVED, THIS ORDER OF BENEDRYL 25 IM WAS GIVEN AND PATIENT ASSISTED INTO PATY CHAIR, NAISR KANG PLACED AND STAFF OBSERVED PATIENT WHO BEGAN TO CALM AFTER 15 MINTUES.
[2019-12-31 23:35] VITALS: BP 159/83
[2020-01-01 07:00] LABS: ABSOLUTE NEUTROPHILS 2.6 thou/uL (1.4-8.2); BASOPHILS 0.7 % (0.0-2.0); EOSINOPHILS 2.6 % (0.0-3.0); HEMOGLOBIN 12.8 gm/dL (14.0-18.0); LYMPHOCYTES 29.1 % (24.0-44.0); MCHC 33.6 g/dL (28.0-37.0); MCV 89.1 fL (80.0-100.0); MONOCYTES 8.8 % (1.0-8.0); PLATELET COUNT 189 thou/uL (150-400); POLYS 58.8 % (36.0-66.0); RBC 4.27 mil/uL (4.50-6.00); RDW 13.2 % (10.5-14.5); WBC 4.5 thou/uL (4.0-11.0)
[2020-01-01 07:11] LABS: CALCIUM 8.9 mg/dL (8.5-10.1)
[2020-01-01 07:22] VITALS: BP 130/96
--- NOTE | 2020-01-01 07:33 | NUR ---
0700 ASSUMED CARE OF PATIENT, PATIENT UP AMBULATING IN URIBE AT THIS TIME. FINISHER ACCORDION ASKED PATIENT TO SLOWDOWN, PATIENT WALKING FAST IN HALLWAY. WALKER GIVEN TO PATIENT TO USE WHILE AMBULATING.
--- NOTE | 2020-01-01 14:40 | NUR ---
PATIENT WANDERING URIBE ATTEMPTING TO GET IN DOORS. PATIENT WALKED BY NURSES STATION APPROX. 1405 AND GRABED KEYS THAT WERE ON [employer]'S TRASH CAN. STAFF ATTEMPTED TO GET KEYS BACK FROM PATIENT, DIFFRENT APPROCHES WHERE USED WITH NO SUCCESS. SECURITY CALLED AND PATIENT ESCORTED TO ROOM. KEYS OBTAINED BY SECURTY BY PRYING KEYS OUT OF HAND. PATIENT CALMMED DOWN WITH SECURITY IN ROOM. STAFF WALKED AWAY TO ALLOW PATIENT TO SIT IN ROOM. A FEW MIN LATER PATIENT BACK TO AMB IN URIBE GOING INTO OTHER PATIENTS ROOM AND UNABLE TO REDIRECT AT THIS TIME.
--- NOTE | 2020-01-01 15:19 | NUR ---
INCREASED AGGITATION NOTED WITH PATIENT. PATIENT ENTERING ROOMS AND BANGING ON DOORS. SECURITY CALLED FOR ASSISTANCE. FINISHING AND SHIPPING SUPERVISOR AND ANOTHER STAFF ADMINISTERED HALDOL 2.5MG IM AND BENADRYL 25MG IM AT 1515. RIGHT AFTER SHOT PATIENT UP AMBULATING IN URIBE. WILL CONTINUE TO MONITOR
--- NOTE | 2020-01-01 16:39 | NUR ---
PATEINT AGGITATION HAS CONTINUED TO INCREASE. PATIENT CONTINUED TO ATTEMPT TO ENTER NURSES STAION. PATIENT ALSO LATCHING ON TO CART OF A NEW ADMIT AND STAFF STRUGGLED TO GET PATIENT TO LET GO. DR URIAS ESCORTED PATIENT TO SECLUSION ROOM AT 1540. SECURITY CALLED FOR ASSISTANCE. HALDOL 7.5MG & ATIVAN 1MG IM GIVEN TO LEFT BUTTOCKS WITH THE ASSISTANCE OF SECURITY AND STAFF PER DR'S ORDER. 1640 PATIENT CONTINUES TO BANG ON DOOR AND NOTED TO STILL BE AGGITATED. DR'S ORDER RECIEVED FOR EXTENTION OF SECLUSION X 1 HR. ONE ON ONE REMAINS IN PLACE WITH WARP CHANGER AT DOOR OF SECLUSION ROOM. WILL CONTINUE TO OBSERVE PATIENT
[2020-01-01 19:49] VITALS: BP 148/83
[2020-01-02 04:20] VITALS: BP 148/83
[2020-01-02 08:29] VITALS: BP 82/50
--- NOTE | 2020-01-02 09:42 | NUR ---
0700 ASSUMED CARE OF PATIENT, PATIENT IN BED AT THAT TIME. 0800 PATIENT IN W/C AT THAT TIME FOR BREAKFAST. PATIENT ASLEEP IN W/C. 0900 PATIENT AWAKE AND MEDICATIONS GIVEN WHOLE IN APPLESAUCE. ROTARY DRYER OPERATOR ASSISTED PATIENT WITH BREAKFAST, PATIENT ATE WELL WITH HELP. ROTARY DRYER OPERATOR ASKED PATIENT TO OPEN EYES AND PATIENT MAINTAINS EATING WITH EYES CLOSED. LUNG SOUNDS ARE CLEAR, BS ACTIVE, DENIES PAIN. WILL COINTINUE TO OBSERVE.
--- NOTE | 2020-01-02 12:35 | NUR ---
SW spoke with pt's and she didnt like the idea of pt going to [place], or [place] for placement and was appalled that Sw was suggesting [facility]. JEREMIAH educated her about the placement difficulties. Jeremiah sent referrals to [facility] , [facility], [facility] ( declined already) , [facility] and [facility]. Pt will go to the first place that accepts him
--- NOTE | 2020-01-02 14:19 | NUR ---
AT 1235 PATIENT PLACED IN SECLUSION PER DR CALERO AFTER PATIENT WAS THROWING FOOD IN DAYROOM AND AFTER ASKING PATIENT TO STOP PATIENT BECAME COMBATIVE. AT 1250 HALDOL 7.5 MG & ATIVAN 1.5 MG IM GIVENT TO RIGHT BUTTOCKS WITH HELP OF SECURITY AND STAFF. ORDER FOR ONE HR OF 1:1 OBSERVATION IN SECLUSION. PATIENT CONTINUED TO YELL OUT AND BANGING ON DOOR PATIENT OUT OF SECLUSION AT 1400 AND BECAME COMBATIVE OUTSIDE THE SECLUSION ROOM. DR CALERO AND STAFF PLACED PATIENT BACK INTO SECLUSION ROOM AT 1405. WILL CONTINUE TO OBSERVE.
--- NOTE | 2020-01-02 15:23 | NUR ---
PATIENT CONTINUES TO BANG ON DOOR WITH INCREASED AGGITATION WHILE IN SECLUSION. DR HERRING NOTIFIED AT 1455. RECIEVED NEW ORDER AT THIS TIME. 1520 BENADRYL 50MG IM GIVEN TO LEFT BUTTOCKS WITH THE HELP OF SECURITY. CLEAN BREIF AND PANTS APPLIED. WILL CONTINUE TO OBSERVE
--- NOTE | 2020-01-02 17:27 | NUR ---
AT 1550 SECLUSION DOOR UNLOCKED. PATIENT ASLEEP ON MATTRESS, UNABLE TO WAKE. PATIENT OFF 1:1 AT THIS TIME. AT 1640 PATIENT AWAKE AND AMBULATES TO DAYROOM FROM SECLUSION ROOM. PATIENT AMBULATING IN DAYROOM. 1720 PATIENT FOUND ON ANOTHER PT'S BED. VP OF PRODUCT WOKE PATIENT UP AND ESCORTED HIM TO HIS OWN ROOM WHERE HE SAT ON BED TO TAKE MEDICATIONS. MEDICATIONS TAKEN WHOLE WITH APPLESAUCE. PATIENT STATES "I HOPE MY MEDS CATCH UP TO ME". PATIENT DOES NOT WANT HIS DINNER AT THIS TIME WILL CONTINUE TO OBSERVE.
[2020-01-02 20:05] VITALS: BP 88/52
[2020-01-02 22:15] VITALS: BP 88/52
--- NOTE | 2020-01-03 05:00 | NUR ---
01-02-20 CARE TRANSFERED AT [id number] PT SITTING IN DAY ROOM, CALM AND COOPERATIVE DURING NURSING ASSESSMENT. WHEN ASKED PT IF HE HAD ANY PAIN PT SHOOK HEAD IN A NO MOTION; WHEN ASKED PT IF HE HAD THOUGHTS OF SELF HARM OR HARMING OTHERS PT AGAIN SHOOK HEAD IN A NO MOTION; UNABLE TO DETERMINE PT MEANING. PT HAD ZERO DIFFICULTIES TAKING MEDICATION. MIXER RUNNER REPORTED THAT PT HAD LOW B/P. 2215 MANUAL B/P ON RIGHT ARM 88/52, P 72, R 16, RR EVEN AND NON-LABORED ON RA; PULSE OX 97% RA. PT LATER WAS UP AD KIKI RUNNING AND WONDERING HALLS, PT WAS REDIRECTED ON MULTI OCCASSION; THEN LATER PT WAS REDIRECTED TO BED AND PT TOOK BED WITHOUT LINENS, RN COVERED PT WITH BLANKET. PLEASE REFER TO NURSING INTERVENTIONS FOR MORE DETAIL INFORMATION. ZERO ACUTE DISTRESS NOTED.
[2020-01-03 07:50] VITALS: BP 93/62
--- NOTE | 2020-01-03 08:28 | NUR ---
PT UP WHEELING SELF IN W/C. PT DOES GET UP OUT OF CHAIR AND WALKS AROUND. PT EATING BREAKFAST WITH OBSERVATION. PT DID PUT BUTTER CONTAINER IN MOUTH AND NEEDED TO BE RETRIEVED. PT ALSO PUTS SUGAR PACKET IN MOUTH. PT STILL HAS THICKEN LIQUIDS. PT DENIES ANY PAIN.
[2020-01-03 08:40] VITALS: BP 93/62
--- NOTE | 2020-01-03 10:00 | NUR ---
ENCOURAGED PT TO SIT DOWN AND WORK ON FIND A WORD PUZZLE. PT RUNNING AROUND UNIT AND NEEDED TO BE TOLD TO WALK. PT NOT CALMING DOWN. DR. HERRING HERE TO SEE PT.
--- NOTE | 2020-01-03 10:24 | NUR ---
ADM BENDADRYL 25MG PO FOR AGITATION. PT NOT SWALLOWING PILLS, PT CHEWING ON MED. GAVE PILL IN PUDDING. PT ATE 100% OF PUDDING.
--- NOTE | 2020-01-03 11:55 | NUR ---
PT LYING DOWN IN HALLWAY. ANOTHER NURSE HELPING PATIENT UP. PT GRABBING ON NURSE ARM. PT GOING TO DOOR AND BREAK ROOM DOOR TRYING TO GET IN. PT PULLED ANOTHER NURSE INTO DINING ROOM AND TRYING TO GET HER BRACLET OFF HER ARM. PT YELLING HELP AND KICKING AT NURSE. PT TAKEN TO SECLUSION ROOM AND DR. HERRING NOTIFIED.
--- NOTE | 2020-01-03 12:00 | NUR ---
ADM HALDOL 5MG IM TO RT HIP. SECURITY PRESENT FOR INJECTION IN QUIET ROOM AND NURSE SMALL OFFSET PRINTER. ORDER FOR SECLUSION ROOM FOR 1 HR.
--- NOTE | 2020-01-03 12:20 | NUR ---
PT RAMMED HEAD INTO DOOR OF SECLUSION ROOM. PT LAYING DOWN. PT HAD NO INJURIES NOTED. PT HAS 1:1 FOR SAFETY WHILE IN SECLUSION.
--- NOTE | 2020-01-03 12:33 | NUR ---
PT IN SECLUSION ROOM HIT RT EYE BROW ON WINDOW FRAME OR DOOR FRAME WHEN GOING DOWN. PT GOT 1/2 INCH GAPPING WOUND ABOVE RT EYE BROW. PT ALERT AND WAS ABLE TO MOVE TO BED AND PRESSURE PLACED ABOVE RT EYE. DR. KLINE AND DR. HERRING NOTIFIED.
--- NOTE | 2020-01-03 12:48 | NUR ---
DR. KLINE HERE TO SEE PATIENT. HE STATED THE PT NEEDS TO HAVE SUTURES PLACED AND GET A CT SCAN OF HEAD.
--- NOTE | 2020-01-03 12:49 | NUR ---
SPOKE TO DR. HERRING ABOUT INJURY AND PT GOING TO ER TO GET SUTURES.
[2020-01-03 13:00] VITALS: BP 106/62
--- NOTE | 2020-01-03 13:00 | NUR ---
SITTING WITH PT IN ER FOR SUTURES. PT SITTING CALMLY IN W/C. BUMP ABOVE RT EYE.
--- NOTE | 2020-01-03 14:48 | NUR ---
PT GETTING CT SCAN AT THIS TIME. PT COOROPERATED WITH CT SCAN.
--- NOTE | 2020-01-03 15:00 | NUR ---
PT GETTING 4 SUTURES ABOVE RT EYE. PT DIDN'T NEED ANY DRESSING OVER AREA THAT IS CLOSED, NO BLEEDING NOTED.
--- NOTE | 2020-01-03 15:48 | NUR ---
PT EATING HEATED UP LUNCH. PT UP WALKING AROUD UNIT.
--- NOTE | 2020-01-03 18:25 | NUR ---
PT STARTED RUNNING AROUND CHASING STAFF, STANDING ON WINDOW SEAL IN DINING ROOM, RUNNING AROUND WITH REMOTE IN HAND NOT WANTING TO RETURN IT.
--- NOTE | 2020-01-03 18:30 | NUR ---
PT PLACED IN SECLUSION ROOM FOR INAPPROPRIATE BEHAVIOR AND NOT FOLLOWING NURSING STAFF ORDERS. DR. RIVERA HERE TO ASSIST WITH GETTING PT TO ROOM.
--- NOTE | 2020-01-03 18:55 | NUR ---
PT IN 4 POINTS RESTRAINT AT THIS TIME FOR SAFETY. DR. RIVERA ORDERED HALDOL 7.5MG IM AND BENADRYL 25MG IM WHICH WAS GIVEN TO RT UPPER HIP. PT WANTING OUT OF RESTRAINTS. PT YELLING HELP. PT INFORMED OF BEHAVIOR AND MEDICATION NEEDED TO BE GIVEN FOR HIS SAFETY.
[2020-01-03 20:01] VITALS: BP 106/62
--- NOTE | 2020-01-04 01:37 | NUR ---
Assumed care of patient this pm shift. Patient in the seclusion room in four point restraints. Patient anxious and asking to be released. Patient settled down and the four point restraints were removed. Patient did not show any negative behaviors. Patient was released from seclusion room and wandered around with the 1:1 until finally going back in the seclusion room to sleep. Patient monitored via camera as well as 12 minute rounding. Patient appears confused this evening. Patients affect variable. Patient denies pain. Patient denies hi/si. Patient takes medications crushed in pudding or applesauce. Patient ambulates without assistance but has a wobbly gait. Patients assessment shows clear breath sounds, active bowel sounds, and s1 s2 heard with auscultation. Patient encouraged to utilize his walker but needs a lot of redirection to use it. Patient released from seclusion at 2030. Patient has a cut over the right eyebrow. The cut is healing and looks appropriate. We will continue to monitor.
[2020-01-04 07:38] VITALS: BP 110/86
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
--- NOTE | 2020-01-04 17:41 | NUR ---
INCREASED AGITATION NOTED AFTER SUPPER,PACING IN HALLWAYS EZEBIEH-MINTLTT-TKN DIAPER ON HEAD AND GRABBED CUPS AND SHOVED DOWN PANTS. SWUNG AT 1;1 STAFF-DR. RIVERA ON UNIT AND PT PLACED IN SECLUSION,4 PT LEATHER RESTRAINTS AT APPROX. [id number] 7.5IM AND BENADRYL 25MG IM GIVEN RVG- CSM CHECKED Q 15,VS Q 15 PER ORDER. RESPIRATIONS EASY AND REGULAR. 1;1 AT BEDSIDE CURRENTLY.
--- NOTE | 2020-01-04 19:33 | NUR ---
RESTRAINTS REMOVED AT APPROX 1805 PT CALM AND APPEARS TO BE RESTING WITH EYES CLOSED-RESPIRATIONS EVEN AND REGULAR. SPEECH SLIGHTLY SLURRED -RESPONSIVE TO VERBAL STIMULI. VS AT 1730 120/96 P-103 [id number] 02 SAT. VS AT 1800 143/81 P 92 R- 14- CSM TO ALL EXTREMITIES AT TIME OF RELEASE. SECLUSION ROOM DOOR UNLOCKED AND STAFF SITTING AT DOOR-APPEARS TO BE RESTING QUIETLY
--- NOTE | 2020-01-05 00:56 | NUR ---
Care assumed of patient at 1915: Patient sleeping in quiet room at start of shift. Doors have remained open, sitter at bedside. Patient cooperative with assessment. Alert and oriented to person only. Confused and forgetful. Thoughts disorganized. Appears frustrated that he is not able to state current location and date. Patient stated "Ugh, I know this!" but was not able to. Denies pain or discomfort. Patient impulsive and restless at times. Patient provided HS medication. Took crushed without issue. Patient was asked if he wanted to be shown his room so he could go to sleep. Patient stated "I'm in bed!". Patient allowed to sleep in quiet room due to preference at the time. Patient ate 10% yogurt cup then declined further snack. No obvious delusional or paranoia behaviors observed. No physical aggression at this time. Patient has remained restless at times. Patient has been able to sleep soundly for 1-2 hours, then sits up, looks around. Patient has gotten up and ambulated independently, requiring staff encouragement to sit down. Patient remains on 1:1 while awake. Due to impulsivity, restlessness and inability to stay asleep, sitter has been at bedside thus far this shift. Bed alarm activated as well.
--- NOTE | 2020-01-05 15:14 | NUR ---
Dr baez and shaq spoke with diya and provided an update. Still pending placement.
--- NOTE | 2020-01-05 15:36 | NUR ---
AT APPROX 1500 REPORTED BY 1;1 STAFF TO BE BECOMING AGITATED,DIFFICULT TO REDIRECT AND GRABBED 1;1 WRIST AND REFUSED TO LET GO. CRAWLING ON FLOOR,ATTEMPTING TO GET UP ON SIDE TABLE AND ROOM AND GOING BACKWARDS WITH WALKER-2-3 STAFF TO ROOM IN ATTEMPT TO PHYSICALLY REDIRECT-ASSISTED TO BED AND SIDE RAILS PUT UP,RELAXATION TECHNIQUES DEEP BREATHING,ENCOURAGED. APPEARS TO BE RESPONDING TO INTERNAL STIMULI OBSERVED TO BE YELLING AT UNSEEN IN CORNER OF ROOM "GET HIM THERE HE IS" RAN OUT IN HALLWAY WITH STAFF HOLDING ON TO GAIT BELT IN ATTEMPT TO KEEP FROM FALLING. DR. RIVERA AND SECURITY STAFF CALLED AND ESCORTED TO SECLUSION ROOM AT APPROX 1510-4 POINT RESTRAINTS APPLIED-CONTINUES TO BE AGITATED AND YELLING REQUIRING ASSIST OF 5 STAFF TO PREVENT SELF HARM. VS OBTAINED BP 112/67 P75 R-16 O2 SAT 97 PERCENT-SKIN WARM AND DRY. COOL CLOTH APPLIED TO FOREHEAD -ATTEMPTED AXILLARY AND ORAL TEMP PT RESISITIVE. 1;1 AT BEDSIDE. THORAZINE 25MG IM GIVEN RIGHT DELTOID AT APPROX 1545
--- NOTE | 2020-01-05 20:35 | NUR ---
BP AT 1537 126/83 P-90 02 SAT 95 PERCENT-TEMP 97.5 R-18 SKIN WARM/DRY. CSM GOOD TO ALL EXTREMITIES TALKING TO SELF-EYS CLOSED BUT APPEARS SLIGHTLY CALMER,BP AT 1607 137/80 TEMP 97.6 P-90 O2 SAT 96 PERCENT R-16- 1700 VS BP 140/88 P-98 R-18 O2 SAT 96 PERCENT-RESTRAINTS REMOVED AT 1724-TAKEN TO BR AND FOOD/FLUIDS PROVIDED-ATE 100 PERCENT OF SUPPER AND TOOK APPROX 400 CC H20. AT 1836 BECAME COMBATIVE WITH 1;1 STAFF-GRABBING HER ARM AND REFUSING TO LET GO-ATTEMPTING TO STAND ON OWN-UNABLE TO REDIRECT NOT FOLLOWING VERBAL COMMANDS-DR. RIVERA NOTIFIED AND SECURITY CALLED AND PLACED IN SECLUSION -4 POINT RESTRAINTS REAPPLIED-REMAINS AGITATED AND COMBATIVE. REPORT GIVEN TO ONCOMING SHIFT-AT 1919 BP ELEVATED TO 160/101 HEART RATE 105-TEMP 100.0 PER 1;1 STAFF- WAS RETAKEN AND WAS 98.9 R-[address] RIVERA CONTACTED AND ORDERS RECIVED TO REMOVE FROM SECLUSION-RESTRAINTS REMOVED AT APPROX 1930 AND ESCORTED TO ROOM-TOOK APPROX 200 CC FLUID. 1;1 AT BEDSIDE SHILPI
--- NOTE | 2020-01-06 04:51 | NUR ---
Pt. as in seclusion and restraints at the beginning of shift. IM shot given as ordered and then patient taken out of seclusion/restraints. Patient then has 1:1 sitter.
--- NOTE | 2020-01-06 05:36 | NUR ---
1:1 sitter remains without any incidents noted and no reports given per CLINICAL APPEALS RN.
[2020-01-06 09:17] VITALS: BP 167/102
[2020-01-06 19:17] VITALS: BP 130/84
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
--- NOTE | 2020-01-07 04:28 | NUR ---
01-06-20 care transfered at 1915; PT IN DAY ROOM IN 1:1 WITH UTILITY ACCOUNTS DIRECTOR; 1999 PT AAOX1 COOPERATIVE DURING NURSING ASSESSMENT. NOTED PT WAS UP AD LIP WANDERING HALLS AND SOMETIMES JOGGING/RUNNING, NOTED GAIT IS UNSTEADY, PT HAS GAIT BELT ON AND UTILITY ACCOUNTS DIRECTOR WAS WITH PT. PT DENIES SI/SH/HI AT THIS TIME. DURING MEDICATION ADMIN PT HAD ZERO DIFFICULTIES TAKING MEDICATION WITH THICKEN LIQUID. PLEASE REFER TO NURSING INTERVENTIONS FOR MORE INFORMATION. ZERO ACUTE DISTRESS DURING NURSING ROUNDS.
[2020-01-07 07:45] VITALS: BP 121/82
[2020-01-07 07:50] VITALS: BP 146/79
--- NOTE | 2020-01-07 12:05 | NUR ---
Weekly RT Note Date of Admission: 11/27/2019 Date of Activity Therapy Assessment: 11/30/2019 Activity Goal:Impulse Control Initial Goal: 1:1, engagement in the milieu Weekly progress towards goal: Did not achieve Group participation level: NA due to COVID19 Behaviors observed: Pt was often seen wandering the unit. Pt was observed exit seeking this weekend, which led to him being put i quiet room with soft restraints. He kicked the door several times and was seen hitting staff. Pt still seems unsteady in his gait. Pt requires a 1:1 sitter, at this time. Pt seems to enjoy music and water colors but struggles to stay focused for very long. Plan: No change towards goal
--- NOTE | 2020-01-07 17:24 | NUR ---
EMERSON HAS BEEN ON 1:1 ALL DAY. CARE ASSUMED AT 0700 - HAS BEEN CALMER AND BEHAVIOR LESS SPORATIC AND IMPULSIVE. STILL DO NOT KNOW HOW HE WILL SUDDENLY REACT AND DART UP. HAS BEEN REDIRECTING WELL TODAY. MEDICATIONS HAVE BEEN GIVEN IN APPLESAUCE AND TAKEN AND T OLERATED WELL. PATIENT NOW CALM AND BUT STARTED ESCALATING AROUND 1730. ONLY PRN GIVEN BENADRYL - HAD SLIGHT PAIN IN LEFT SHOULDER - GIVEN TYLENOL AND HELPED.
[2020-01-07 23:30] VITALS: BP 148/88
--- NOTE | 2020-01-08 06:09 | NUR ---
01-07-20 CARE TRANSFERED AT 1914; PT STANDING IN [address] WITH WALKER AND GAIT BELT ON WITH HIS 1:1 HYDROGEN BRAZE FURNACE OPERATOR, NOTED PT TRYING TO CLIMB UP WALKER. RN REDIRECTED PT AND PT FOLLOWED DIRECTION. 1944 PT AAOX2, SKIN W/D, COOPERATIVE DURING ASSESSMENT. OF NOTE, PLEASE REFER TO NURSING INTERVENTIONS FOR MORE INFORMATION. ZERO ACURE DISTRESS NOTED DURING NURSING ROUNDS.
--- NOTE | 2020-01-08 07:50 | EKG ---
[facility] [place] [address] ELECTROCARDIOGRAM REPORT Name: EMERSON MCCRACKEN JR Room #: [facility] ADM IN M.R.#: [id number] Admission: 11/27/19 Attend Phys: Ab Blanc DO Discharge: Date of : 54 Report #: [id number] THIS REPORT FOR: cc: Albert Carr MD, Bruce E. MD Lundgren,Timothy Machado MD [facility] ~ THIS REPORT FOR: //name// [facility] Test Date: 2020-01-05 Test Time: 09:24:06 Pat Name: EMERSON MCCRACKEN Department: Room: [facility] Gender: M Electronic Gluer: STAN : 1950 Requested By: Ab Blanc Order Number: [id number] MD: Timothy Dutta Measurements Intervals [place] Rate: 59 P: 52 [place]: 161 QRS: 35 QRSD: 108 T: 39 QT: 465 QTc: 461 Interpretive Statements Sinus rhythm No significant abnormality Artifact in lead(s) Compared to ECG 11/11/2019 16:16:51 No significant change was found Electronically Signed On 01-08-2020 7:48:03 CDT by Timothy Dutta [email or web address] <ELECTRONICALLY SIGNED> By: Timothy Dutta MD, [facility] 01/08/20 0748 Timothy Dutta MD, [facility] /EPI
[2020-01-08 09:20] VITALS: BP 127/73
--- NOTE | 2020-01-08 11:30 | NUR ---
[facility] has no secure unit, [facility] has no availabilty, Sw resent the referal to [facility], and left a VM with [facility]. SW left a VM for [facility], and all of [facility] will won't [place].
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
[2020-01-08 19:43] VITALS: BP 140/77
--- NOTE | 2020-01-09 05:58 | NUR ---
01-09-20 CARE TRANSFERED AT 1915; 1945 PT SITTING IN DAY ROOM, AAOX2, CALM AND COOPERATIVE DURING FULL SHIFT. PLEASE REFER TO NURSING INTERVENTIONS FOR MORE INFORMATION. ZERO ACUTE DISTRESS NOTED DURING NURSING ROUNDS.
[2020-01-09 07:50] VITALS: BP 127/70
--- NOTE | 2020-01-09 12:33 | NUR ---
Up ambulating without s/o distress. Gait steady and fast at times, needs frequent reminders to use walker. Alert and orientated to person. Names another hospital for place and gives incorrect date. Calm and cooperative. Initially refusing to open eyes. Slept on couch for a couple of hours after AM meds. Did dance to song in group. Breath sounds clear t/o. Reg HR auscultated. Color pink with brisk capillary refill and palpable peripheral pulses. No edema noted. Incontinent of large amt urine in room, brief also wet. Active bowel sounds over soft, flat abdomen. Sutures above R brow intact without s/o infection. Occassionally taking belongings from peers, remains redirectable.
--- NOTE | 2020-01-09 14:06 | NUR ---
SW sent referal to [facility] and [place] in [place].
[2020-01-09 19:39] VITALS: BP 137/87
--- NOTE | 2020-01-10 06:25 | NUR ---
01-09-20 CARE TRANSFERED 1914; OBSERVED PT WALKING HALLS, SHUFFLING GAIT. 2004 AAOX2, CALM AND APPROIATE AND SMILING. ASSISTED PT WITH CALLING HIS DAUGHTER KENDY AND PT RETURN PHONE RN REQUESTED. PLEASE REFER TO NURSING INTERVENTIONS FOR MORE INFORMATION. ZERO ACUTE DISTRESS NOTED DURING NURSING ROUNDS.
[2020-01-10 09:40] VITALS: BP 122/76
--- NOTE | 2020-01-10 19:33 | NUR ---
COOPERATIVE AND PLEASANT THROUGHOUT SHIFT. COMPLIENT WITH MEDICATIONS AND CARES. AT TIMES NEEDS REMINDERS TO WALK SLOWER OR USE ROLLER WALKER. REMAINS ON FALLS PROTOCOL. SMALL BM-GETS SELF TO AND FROM BATHROOM-FEEDS SELF AND APPETITE IS GOOD. DENIES C/O PAIN. SUTURES TO RIGHT EYEBROW REMOVED BY MD AND PT TOLERATED WELL. APPEARS WELL APPROXIMATED WITHOUT DRAINAGE. DENIES C/O PAIN/DISCOMFORT. ORIENTED TO PERSON/HOSPITAL-NO TO DATE. APPEARS LESS RESTLESS ABLE TO SIT FOR SHORT PERIODS OF TIME AND CONVERSE WITH PEERS/STAFF.
[2020-01-10 20:01] VITALS: BP 171/102
--- NOTE | 2020-01-10 23:03 | NUR ---
ASSUMED CARE ON 01/10/20 @ 1900, AMBULATING THROUGHOUT THE MILEU. COOPERATED WITH ASSESSMENT, REPORTS IS HAPPY, DENIES DEPRESSION, SPOKE TO TODAY. REPORTS ANXIETY IN THE A.M. DENIES DEPRESSION, DENIES SI,HI. LUNGS CTA, HRRR, ABD NORMOACTIVE SOUNDS REPORTS ATE WELL, BM X 1 TODAY.
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
[2020-01-10 23:23] VITALS: BP 171/102
[2020-01-11 07:53] VITALS: BP 167/77
[2020-01-11 10:37] VITALS: BP 167/77
--- NOTE | 2020-01-11 12:43 | NUR ---
1200 RESUMMED CARE FROM OVERNIGHT THIS AM, PATIENT IN ROOM RESTING QUIETLY. PATIENT FINALLY GOT UP AND ATE BREAKFAST TOOK MEDICATION WITHOUT IMCIDENCE. PATIENT'S BEHAVIOR IS MUCH BETTER, UNDERSTANDS SIMPLE INSTRUCTIONS, STILL LEAVES WALKER AT TIMES. PATIENT STILL HAS SOME DROOLING AT TIMES, PATIENT HAD EKG THIS AM. DR RIVERA LOOKED AT IT AND STATED IT SHOWED SOME BRADYCARDIA. PATIENT DENIES SI/HI/AH/VH AT PRESENT PATIENTS ABDOMEN SOFT ROUND BOWEL SOUNDS PRESENT. PATIENTS LUNGS CLEAR PATIENT MUCH CALMER FROM PREVIOUS BEHAVIORS. WILL CONTINUE TO MONITOR PATIENT FOR SAFETY AND BEHAVIORS.
--- NOTE | 2020-01-11 14:45 | NUR ---
Sw resent the referral to [facility], [facility] , [facility] since this pt has had several better days and asked for another look at him.
[2020-01-11 20:05] VITALS: BP 122/69
--- NOTE | 2020-01-11 22:53 | NUR ---
Patient has been hyperactive all evening. Patient refusing to sit on a chair alarm. Patient "collecting" chair alarm boxes and pads. Patient pulled the wires a part on 2 different chair alarm pads. Patient removed the batteries out of 3 different alarm boxes. Patient insisted that he was trying to "fix" them. Patient provided word search pages, magazines and items for him to fidget with. None of which were effective because he was determined to "fix" the alarm boxes.
--- NOTE | 2020-01-12 06:14 | NUR ---
01-11-20 CARE TRANSFERED 1914 OBSERVED PT WALKING IN [address]. 2014 PT AAOX2 CALM COOPERATIVE DURING NURSING ASSESSMENT. DURING MEDICATION ADMIN ZERO DIFFICULTIES. PT DENIES ANY PAIN AND SI/SH/HI. OF NOTE, PLEASE FOR MORE INFORMATION PLEASE REFER TO NURSING INTERVENTIONS. ZERO ACUTE DISTRESS NOTED THROUGH NURSING ROUNDS.
[2020-01-12 07:15] VITALS: BP 122/62
--- NOTE | 2020-01-12 08:47 | EKG ---
[facility] [place] [address] ELECTROCARDIOGRAM REPORT Name: EMERSON MCCRACKEN JR Room #: [facility] ADM IN M.R.#: [id number] Admission: 11/27/19 Attend Phys: Ab Blanc DO Discharge: Date of : 54 Report #: [id number] THIS REPORT FOR: cc: Albert Carr MD, Bruce E. MD Lundgren,Timothy Machado MD [facility] ~ THIS REPORT FOR: //name// [facility] Test Date: 2020-01-11 Test Time: 11:21:03 Pat Name: EMERSON MCCRACKEN Department: Room: [facility] Gender: M Lamination Assembler: Don HAAS : 1950 Requested By: Ab Blanc Order Number: [id number] MD: Timothy Dutta Measurements Intervals [place] Rate: 57 P: 45 NM: 164 QRS: 33 QRSD: 90 T: 38 QT: 447 QTc: 436 Interpretive Statements Sinus bradycardia Otherwise normal tracing Compared to ECG 01/05/2020 09:24:06 No significant changes Electronically Signed On 01-12-2020 8:45:42 CDT by Timothy Dutta [email or web address] <ELECTRONICALLY SIGNED> By: Timothy Dutta MD, [facility] 01/12/20 0845 1121 1121 Timothy Dutta MD, [facility] /EPI
--- NOTE | 2020-01-12 16:08 | NUR ---
SW recieved a call from the following concerning admission: [place]: Decline due to Pt not having medicaid ( Wilma [phone]) [place]: Declined ( Daya) [facility]: Declined due to no open beds ( Cynthia)
--- NOTE | 2020-01-12 18:20 | NUR ---
COOPERATIVE AND PLEASNT THROUGHOUT AM CONVERSING WITH PEERS IN DAYROOM AND COMPLIENT WITH REQUESTSA FROM NURSING STAFF. AT APPROX 1630 NOTED TO HAVE INCREASED RESTLESSNESS,PACING RAPIDLY IN HALLLWAYS-ATTEMPTED X 2 TO GET INTO NURSING STATION INSISTING THAT HE NEEDED TO "FIX THE CIRCUITS" DISTRACTION ATTEMPTED,FOOD/FLUIDS OFFERED AND ACCEPTED/TOILETED/IBUPROFEN 400MG GIVEN PO PRN FOR GENERALIZED DISCOMFORT -CONTINUES TO HAVE RESTLESSNESS, ARGUNETATIVE WITH STAFF,IMPULSIVE,RUNNING IN HALLWAYS ABD ENTERING PEERS ROOMS. THORAZINE 50MG FIVEN PO PRN AT 1700 REMAINS ON FALL PRECAUTIONS
[2020-01-12 19:29] VITALS: BP 176/84
[2020-01-12 22:00] VITALS: BP 176/84
--- NOTE | 2020-01-13 01:28 | NUR ---
Assumed care of patient this pm shift. Patient is in good spirits and very talkative. Patient stated that the "main line" is broken. Patient appears to be somewhat delusional but very happy. Patient is encouraged to slow down when using his walker as his pace is sometimes more of a jogging pace. Patient is wearing hospital attire. Patient denies hi/si. Patient states that he does get pain around his neck and shoulders from time to time. Patients assessment shows clear breath sounds, active bowel sounds, and s1 s2 heard with auscultation. Patient toilets himself. We will continue to monitor per hospital protocol.
[2020-01-13 07:41] VITALS: BP 115/81
--- NOTE | 2020-01-13 12:14 | NUR ---
PIERCE faxed a referral to [facility] fiona Johnson
--- NOTE | 2020-01-13 12:32 | NUR ---
Up ambulating in unit with fast gait needing frequent reminders to slow down and use his walker. Very redirectable at this point. Orientated to person and place. Denies SI/HI. Compliant with meds while awake but was resistant to taking 1000 meds d/t wanting to be left alone. Took crushed in yogurt on 3rd approach. Took shower and brushed teeth with direction. Breath sounds clear. Reg HR auscultated. Color pale pink with brisk capillary refill and palpable peripheral pulses. No edema noted. Yellow urine per toilet. Active bowel sounds over soft, flat abdomen. Showered and shampooed before lunch, now wants to be shaved.
[2020-01-13 19:37] VITALS: BP 156/101
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
[2020-01-14 07:47] VITALS: BP 97/66
--- NOTE | 2020-01-14 10:30 | NUR ---
Assumed care 0700. Patient woke up early in the shift and briskly walked down the wolf without his walker to the dayroom to sit down. At 0748 got up from chair, sat down on the arm of the chair then leaned forward with left side of head/face on table. No injury/bleeding/lacerations/bruising on head/forehead. VS=90/57 p=92, r=18. Eyes dark brown, pupils small, difficult if they react to light even with room darkened. Hand car dealer strong, equal, BLE strong and equal. Oriented to person only. Thinks the dayroom is an office=confused. He continued to get up and not have his walker with him. He was redirected numerous times. He said he wanted the choice of whether he would take his medications by pill or by shot when nurse reminded him that if he did not take his pills he would be getting a shot in the AM. He was encouraged to make the decision to take his pills to avoid a shot-which he did take his pills.
--- NOTE | 2020-01-14 12:20 | NUR ---
[facility] declined to accept Pt.
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
--- NOTE | 2020-01-14 14:52 | NUR ---
For the past two hours he has been going up and down the wolf, more of the time than not leaving his walker wherever he wants. He has been going into other patients rooms. He is pounding on the doors, ringing the gonzalez. He is exit seeking. He has come into the nursing station retrieved the remote control to the TV, placed it in his pants and is refusing to relinquish it. his , [facility] was called and informed of his earlier in the shift standing, sitting on the chair arm and putting his head on the table with no injury. His also spoke with another nurse Trinidad and it was decided to give him a phone call from his in trade for the TV remote. He continues to walk, walk fast, and sometimes run up and down the halls without his walker. When the chair alarm is placed under him, he frequently chooses to change chairs necessitating staff replacing chair alarm in another chair.
[2020-01-14 16:26] VITALS: BP 140/80
[2020-01-14 19:42] VITALS: BP 107/59
--- NOTE | 2020-01-15 05:48 | NUR ---
01-14-20 CARE TRANSFERED 1914 OBSERVED PT WANDERING HALLWAY AT A FAST PACE. PT SLOW DOWN PER RN REDIRECTION. 1944 PT AAOX2, CLAM, COOPERATIVE, PT DENIED ANY PAIN BUT REPORTED HE HAD DID HIT HIS CHIN ON TABLE TODAY, NOTED ZERO SWELLING OR CONTUSION. DURING REPORT OFFGOING RN DID REPORT THAT PT FELL ON LEFT SIDE OF FACE, THIS RN NOTED ZERO SWELLING OR CONTUSION ON LEFT SIDE OF FACE. PT DENIES SI/SH/HI. OF NOTE, PLEASE REFER TO NURSING INTERVENTIONS FOR MORE INFORMATON. ZERO ACUTE DISTRESS NOTED THROUGHOUT NURSING ROUNDS.
[2020-01-15 07:32] VITALS: BP 122/68
--- NOTE | 2020-01-15 11:23 | NUR ---
RT Progress Note- Nicola continues to be present in the milieu and interactive with RT staff. He is seen walking the hallways, often looking for various things or looking to complete tasks. He is redirectable when provided "worksheets" to complete. He has participated in exercise and music groups throughout the last week, requiring little redirection during them.
--- NOTE | 2020-01-15 13:02 | NUR ---
ASSUMED CARE AT 0700 THIS MORNING. PT. REQUESTED ALL HIS MEDICATIONS BE GROUND FINELY AND IN PUDDING. THIS WAS DONE FOR MORNING MEDICATIONS AND 10AM MED. AT 12:30 HE WAS OFFERED HIS CARBIDOPA/LEVODOPA AT 1235 (1300 DOSES). HE REFUSED THIS TELL THIS RN HE WAS GOING TO DO EVERYTHING HE COULD TO STOP STAFF FROM GIVING HIM ANY MEDICATIONS. HE WAS REMINDED HE CANNOT BE HURTING HIMSELF OR OTHERS THIS COULD NOT BE TOLERATED. HE STARTED SPITTING AT THIS RN, GOT UP AND WAS RUSHING (FAST WALK BUT NOT A RUN) DOWN THE HALLS. HE STATED HE WOULD NOT TAKE ANYTHING FROM STAFF. HE CONTINIUED TO REFUSE MEDICATIONS, PASING FAST IN THE HALLS. SECURITY WAS NOTIFIED AND CAME UP TO ASSIST WITH GIVING AN IM TO HIM. HE WAS ASKED TO WAIT IN HIS ROOM CALMLY FOR 10 MINUTES. ANOTHER RN SAT WITH THE PATIENT. THIS RN REINTERED THE ROOM, HE LOOKED LIKE HE WAS FALLING ASLEEP. HE STATED HE WAS GETTING TIRED. HE WAS LEFT IN HIS ROOM TO REST OF THIS WRITING.
[2020-01-15 19:30] VITALS: BP 156/81
--- NOTE | 2020-01-16 05:42 | NUR ---
01-14-19 CARE TRANSFERED 1914 OBSERVED PT IN DAY ROOM. 1934 PT AAOX3 CALM AND COOPERATIVE DURING NURSING ASSESSMENT. PT DENIES ANY PAIN AND DENIES SI/SH/HI AT THIS TIME. DURING MEDICATION ADMIN. TIME PT BECAME IRRITABLE AND REFUSED TO TAKE MEDICATION. HCP WAS CONSULTED BY ANOTHER RN WHILE THIS RM WAS TRYING TO DE ESCLATION PT AND GET HIS COMPLAINCE WITH MEDICATION. PER RN WHO SPOKE WITH HCP IF PT BEHAVIOR ESCLATES TO GO AHEAD AND USE IM. LATER PT WENT INTO DAY ROOM AND FELL ASLEEP ON COUCH. APPROXIMATELY 0100 ASSISTED PT TO ROOM, ASSISTED PT VOIDED IN TOLIET, YELLOW, NO SEDIMENT, NO FOUL ODOR, BRIEF CHANGED; AND NOTED PT CLIMB INTO BED, ENSURED BED IN LOWEST POSITION AND LOCKED AND ALARM ON. LATER DURING ROUNDS DISCOVERED BED UNPLUGGED. BED WAS PLUGGED BACK INTO ELECTRICAL OUTLET AND ALARM RESET. OF NOTE, PLEASE REFER TO NURSING INTERVENTIONS FOR MORE INFORMATION. ZERO ACUTE DISTRESS NOTED.
[2020-01-16 08:30] VITALS: BP 149/107
--- NOTE | 2020-01-16 08:48 | NUR ---
PT DID SIT DOWN IN DINING ROOM FOR BREAKFAST AND THEN UP TO ROOM. PT WANTING TO HAVE A CHANGE OF CLOTHES. GAVE PT MEDICATION AND HE SAID THIS BRINE TANK SEPARATOR OPERATOR WAS A SAINT FOR BRINGING HIM SOMETHING TO DRINK WITH MEDS. PT STATED HE DIDN'T LIKE THE THICKENED DRINKS. THERE WAS ANOTHER PATIENT EYE GLASSES IN HIS ROOM. PT STATED HE HAD LEFT THEM ON HIS BED AND WAS SHOWING THIS BRINE TANK SEPARATOR OPERATOR WHERE THEY WERE. NO ISSUES WITH REFUSING MEDS. PT SEEMS MORE AWARE OF PLACE AND PERSON.
--- NOTE | 2020-01-16 10:14 | NUR ---
PIERCE called and left with [facility], and [facility], and [facility] time
--- NOTE | 2020-01-16 10:15 | NUR ---
Jeremiah spoke with [facility] and they are going to forward this to a community that has memory care in their group. Jeremiah faxed new updated notes
[2020-01-16 11:43] VITALS: BP 149/107
--- NOTE | 2020-01-16 14:15 | NUR ---
PT USING WALKER AT THIS TIME. PT DIDN'T REFUSE MEDICATION AT 1300. PT DID ASK WHAT THE MEDICATION WAS. PT WAS WORKING ON MATH PROBLEMS ONE ON ONE WITH REC THERAPIST AFTER LUNCH.
--- NOTE | 2020-01-16 14:53 | NUR ---
SW sent new referrals to [facility], [facility], [facility], [facility], [facility], [facility], and [facility] of
[2020-01-16 19:43] VITALS: BP 159/105
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
[2020-01-17 04:42] VITALS: BP 159/105
[2020-01-17 07:45] VITALS: BP 151/86
--- NOTE | 2020-01-17 08:50 | NUR ---
Assumed care 0700. No reported c/o pain/concerns. Walking appropriately in wolf.
--- NOTE | 2020-01-17 12:27 | NUR ---
1;1 RT note- Patient came to nurses station with word searches he had been given to complete previously, stating, "I'm not in to this kind of thing." SAFETY TRAINER then provided pt with a file folder full of 5 engingeering resumes for him to review. 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 I really appreciate this kind of thing!"
--- NOTE | 2020-01-17 12:29 | NUR ---
Shaq emailed updates to Hari myrick requesting that he reach out to Denia at [facility]. Shaq called Denia today and she had not heard from him , so shaq asked Denia to reach out to him and go over any cocnerns or questions he may have. Shaq also sent a referral to [facility] in [facility] as an alternative.
--- NOTE | 2020-01-17 12:30 | NUR ---
[facility] denied- they do not take pt's with dementia
--- NOTE | 2020-01-17 13:03 | NUR ---
PIERCE called and left another for [facility], [facility], [facility], [facility],. Pt was denied at [facility], and [facility]. Pierce sent referrals to [facility] and [facility].
[2020-01-17 14:10] LABS: ABSOLUTE NEUTROPHILS 4.3 thou/uL (1.4-8.2); BASOPHILS 0.6 % (0.0-2.0); EOSINOPHILS 5.4 % (0.0-3.0); HEMATOCRIT 35.6 % (42.0-52.0); HEMOGLOBIN 12.2 gm/dL (14.0-18.0); MCH 30.6 pg (26.0-34.0); MCHC 34.3 g/dL (28.0-37.0); MCV 89.1 fL (80.0-100.0); PLATELET COUNT 200 thou/uL (150-400); RBC 3.99 mil/uL (4.50-6.00); RDW 13.6 % (10.5-14.5); WBC 5.6 thou/uL (4.0-11.0)
[2020-01-17 14:26] LABS: ALBUMIN 3.5 g/dL (3.4-5.0); CALCIUM 8.5 mg/dL (8.5-10.1); POTASSIUM 4.5 mmol/L (3.5-5.1); TOTAL BILIRUBIN 0.6 mg/dL (0.2-1.0); TOTAL PROTEIN 6.3 g/dL (6.4-8.2)
[2020-01-17 20:06] VITALS: BP 132/79
--- NOTE | 2020-01-18 04:44 | NUR ---
01-17-20 CARE TRANSFERED AT 191 PT WANDERING HALLS AND AT EXIT DOOR, EXITING SEEKING BEHAVIOR NOTED. 1954 PT SITTING IN DAY ROOM AAOX2, SKIN W/D, SLIGHT TREMORS UE R/T [facility]. PT DENIES ANY PAIN AT THIS TIME AND DENIES SI/SH/HI/AVH. DURING MEDICATION ADMINISTRATION ZERO DIFFICULTIES SWALLOWING MEDICATION WITH YOGURT. PT HAS BEEM CALM AND COOPERATIVE THROUGH NURSING ASSESSMENT AND MEDICATION ADMIN. OF NOTE, PLEASE REFER TO NURSING INTERVENTIONS FOR MORE INFORMATION. ZERO ACUTE DISTESS NOTED THROUGH SHIFT.
[2020-01-18 08:21] VITALS: BP 147/93
--- NOTE | 2020-01-18 10:31 | NUR ---
Up ambulating in unit with regular, steady gait with a fast pace at times. Needs frequent reminders to use walker. Alert and orientated X 4 this AM. 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 Denies SI/HI. Participating in group and sitting quietly on couch in day room. Breath sounds clear t/o. Reg HR auscultated. Color pink with brisk capillary refill and palpable peripheral pulses. No edema noted. Independent with voiding. States he had BM this AM. No s/o distress at this time.
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
[2020-01-18 19:32] VITALS: BP 157/99
--- NOTE | 2020-01-19 00:21 | NUR ---
Care assumed of patient at 1915: Patient ambulating about the hallways and dayroom at start of shift. Patient alert and oriented x4. Calm, pleasant and cooperative. Smiling, social, interacting appropriately with staff and peers. Denies pain or discomfort. Denies SI/HI/AH/VH. Denies anxiety and depression. Appears that patient had a pleasant conversation with his on the phone. Patient states that it was "nice". Patient following directions well. No running or excess pacing observed. Patient ate 100% HS snack. Took HS medication whole in pudding with no issue. No delusional or paranoia behaviors observed. Patient did request the remote because the "news is depressing". Movie was turned on with consensus from peers. Patient appreciative. Patient was able to fall asleep in recliner at reasonable hour and has been resting quietly since. Patient does make impulsive, quick movements at times. Non of which are aggressive or intruding on others.
[2020-01-19 07:53] VITALS: BP 110/64
--- NOTE | 2020-01-19 10:54 | NUR ---
Pt has been accepted at and nilam is finishing the admission this AM. SW requested a STAT COVID 19 test and once the results are complete, pt will d/c to [facility] hopefully this PM.
[2020-01-19] MEDS ORDERED: DIVALPROEX SOD500 M1 PO (11:28)
[2020-01-19] MEDS ORDERED: TRAZODONE 150150 M1 PO (11:28)
[2020-01-19] MEDS ORDERED: CHLORPROMAZINE25 M1 PO ×2 (11:29→11:30)
[2020-01-19] MEDS ORDERED: ENTACAPONE200 M1 PO (11:32)
[2020-01-19] MEDS ORDERED: LACTULOSE20 GM/30 M PO (11:34)
[2020-01-19] MEDS ORDERED: FINASTERIDE5 MG PO (11:35)
--- NOTE | 2020-01-19 12:17 | NUR ---
PATIENT HAS BEEN UP, AND OUT ON THE UNIT, AMBULATES WITH SLIGHTLY UNSTEAD GAIT. PATIENT FORGETS TO USE HIS WALKER. PATIENT HAS BEEN CALM, COOPERATIVE WITH CARE. PATIENT IS INTERCTING WELL WITH STAFF, AND PEERS, ABLE TO CARRY ON COHERENT CONVERSATIONS. HE IS EATING DOUBLE PORTION OF MEALS, AND DRINKING FLUID WELL. PATIENT TOOK ALL MORNING MEDICATIONS CRUSHED IN PUDDING PER HIS REQUEST WITHOUT DIFFICULTY. PATIENT DENIES SUICIDAL/HOMICIDAL IDEATION, HE DENIES DEPRESSION/ANXIETY. NO AUDITORY/VISUAL HALLUCINATION NOTED. PATIENT DENIES HAVING PHYSICAL PAIN. MOOD IS EUTHYMIC, AND PLEASANT, AFFECT IS HAPPY. NO AGITATION OR AGGRESSIVE BEHAVIOR NOTED. LCTA, RESPIRATION EVEN, AND UNLABORED, NO SOA/CYANOSIS NOTED. NO SIGN OF CUTE DISTRESS NOTED, WILL MONITOR FOR SAFETY.
--- NOTE | 2020-01-19 14:40 | NUR ---
Lab just called and reported that the COVID test is negative. Dr. baez was notified.
--- NOTE | 2020-01-19 14:59 | NUR ---
SW faxed the d/c orders, summary and negative COVID 19 results to [facility]. They confimred a apple picking supervisor for 5pm. SW reported this to nursing and family. Sw made packet and left it on the chart.
--- NOTE | 2020-01-20 10:13 | D ---
[facility] [place] [address] DISCHARGE SUMMARY Name: EMERSON MCCRACKEN JR Room #: 525B-B DIS IN M.R.#: [id number] Admission: 11/27/19 Attend Phys: Ab Blanc DO Discharge: 01/19/20 Date of : 54 Report #: [id number] THIS REPORT FOR: cc: Albert Carr MD, Bruce E. MD Kerstein, Andrew H. DO ~ THIS REPORT FOR: //name// CC: Ab Carr DATE OF SERVICE: 01/19/2020 INPATIENT PSYCHIATRIC DISCHARGE SUMMARY ATTENDING AT TIME OF ADMISSION: Za Flynn MD ATTENDING SINCE MIDNIGHT: Ab Blanc DO CLERK GENERAL AT THE TIME OF DISCHARGE: Gabe Fernández MD CONSULTING PHYSICIANS: Dwaine Vasques MD, Neurology and Marques Shaw MD, Wound Care. 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 Medical comorbidities include seizure disorder likely due to progressive dementia and iatrogenesis from antipsychotic. 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 The patient sustained a laceration to the right eye, which was sutured. At this admission, sutures were removed, it has healed well, and has benign prostatic hypertrophy. DISCHARGE PLAN: The patient is discharging to the [facility]. Psychiatric and medical care to be performed by receiving facility. DISCHARGE MEDICATIONS: Trazodone 100 mg p.o. at bedtime p.r.n. for insomnia, olanzapine 5 mg p.o. q. 4 p.r.n. for agitation, lorazepam 0.5 mg p.o. q. 8 p.r.n. for agitation, entacapone 200 mg p.o. daily for dopamine deficiency, Depakote 750 mg p.o. at bedtime for seizure prevention. I have not gotten a Depakote level at the time of discharge, as it was a little soon. Recommended obtaining in morning, approximately 5 days, at 1800. Chlorpromazine 112.5 mg orally at 0900, 1400 and 2000 hours. If he refuses chlorpromazine, recommend IM injection of 75 mg IM. Lactulose 20 g p.o. daily for constipation, finasteride 5 mg p.o. daily for BPH. Also carbidopa/levodopa 25/250 five times a day for [address] [address] DISCHARGE SUMMARY Name: EMERSON MCCRACKEN Room #: 525B-B DIS IN M.R.#: [id number] Admission: 11/27/19 Attend Phys: Ab Blanc DO Discharge: 01/19/20 Date of : 54 Report #: [id number] Parkinson symptoms. Vitamin D 5000 International Units p.o. daily. He can also have MiraLax polyethylene glycol 17 g p.o. b.i.d. REASON FOR ADMISSION: The patient was readmitted following stay in ICU and CCU due to unexpected fall. While at [facility], the patient had difficulties following directions and was agitated. HOSPITAL COURSE: After readmission, we went through a fairly extensive period with difficulty getting consistent redirection, impulse control, not needing IMs. The initial week I had him admitted in December or so, there were repeated restraints required during that week. I elected to go ahead, discontinue Haldol and olanzapine usage and move forward with a chlorpromazine regimen which was titrated to 112.5 mg oral 3 times a day. During this time, I decreased his Sinemet burden substantially. There were a couple of instances of seizure activity including approximately a week prior to discharge. This was captured on video, reviewed by myself, and discussed with Dr. Vasques who recommended starting the patient on Depakote to help mitigate this potential given the essential nature of antipsychotics with the patient as well as progression of a neurodegenerative disorder. The patient had a wound on his buttocks that healed up. Wound physician saw at the time of discharge that was healing well. Significant laboratories this admission are as follows: Most recent CBC on 01/17/2020, H and H 12.2 and 35.6, white count 5.6 and platelet 200. Chemistry on 01/17/2020, sodium 143, potassium 4.5, chloride 107, bicarbonate 20, anion gap 8, BUN 26, creatinine 1.0, estimated GFR 75, glucose 84, calcium 8.5, total bilirubin 0.6, AST 82, ALT 26, alkaline phosphatase 86, total protein 6.3, albumin 3.5. PHYSICAL EXAMINATION: VITAL SIGNS: At day of discharge, temperature 36.6, pulse 78, respirations 16, BP 110/64, O2 sat 97%, regular respiratory pattern. MUSCULOSKELETAL: Normal gait and station. MENTAL STATUS EXAMINATION: This is a well-developed, fairly nourished male, appearing stated age, dressed in jeans and long T-shirt today. Attention limited. Concentration limited. Speech is normal in rate, volume and tone. Thought process: Linear, and limited. Thought content, relative poverty of thought, was interestingly very patient today. On the day of discharge, denied suicidal intent or plan. Denied homicidal intent or plan. Denied auditory, visual, or tactile hallucinations. Memory not formally tested, noted to be impaired. Insight limited. Judgment limited. Fund of knowledge below average. PROGNOSIS: For this patient is guarded to poor given the nature of Lewy body [facility] [address] [place] [address] DISCHARGE SUMMARY Name: EMERSON MCCRACKEN Room #: 525B-B DIS IN M.R.#: [id number] Admission: 11/27/19 Attend Phys: Ab Blanc DO Discharge: 01/19/20 Date of : 54 Report #: [id number] dementia, his age, some medical comorbidities including a concern for Shy-Drager syndrome. <ELECTRONICALLY SIGNED> By: Ab Blanc DO 01/20/20 1013 [id number] Ab Blanc DO /nt
--- NOTE | 2020-01-22 18:41 | EEG ---
[facility] [place] [address] ELECTROENCEPHALOGRAM Name: EMERSON MCCRACKEN JR Room #: 525B-B DIS IN M.R.#: [id number] Admission: 11/27/19 Attend Phys: Ace Day Discharge: 01/19/20 Date of : 54 Report #: [id number] THIS REPORT FOR: //name// CC: Ab Price Carr This patient had an episode of seizure. EEG was done by placing the electrode by standard 10-20 system of electrode placement. Both referential and sequential montages were used for recording. Background activity in this patient's EEG is about 7-8 Hz. The patient became drowsy that is associated with bilateral slowing and vertex sharp waves. Photic stimulation was unremarkable. Throughout the record, no active epileptiform activity was noticed. IMPRESSION: This patient's EEG is intermixed with theta range slowing on both sides. That is a nonspecific finding, which can occur with dementia, encephalopathy, effect of psychotropic medication. No active epileptiform activity was noticed during this record. Thank you very much for this referral. <ELECTRONICALLY SIGNED> By: Dwaine Vasques MD 01/22/20 1841 1301 1304 Dwaine Vasques MD /nt
== END 2020-01-19 17:30 | DRG 57 ==
LOC: SBH 13:20
PROVIDERS: Hospitalist; Psychiatry & Neurology Psychiatry; ADMIT Psychiatry & Neurology Psychiatry
DX: G20 Parkinson's disease (principal); F02.81 Dementia in other diseases classified elsewhere, unspecified severity, with behavioral disturbance; G93.40 Encephalopathy, unspecified; I10 Essential (primary) hypertension; G47.00 Insomnia, unspecified; K21.0 Gastro-esophageal reflux disease with esophagitis; M81.0 Age-related osteoporosis without current pathological fracture; M19.90 Unspecified osteoarthritis, unspecified site; E03.9 Hypothyroidism, unspecified; G90.3 Multi-system degeneration of the autonomic nervous system; N40.0 Benign prostatic hyperplasia without lower urinary tract symptoms; G25.81 Restless legs syndrome; E78.5 Hyperlipidemia, unspecified; S30.810A Abrasion of lower back and pelvis, initial encounter; W19.XXXA Unspecified fall, initial encounter; S01.81XA Laceration without foreign body of other part of head, initial encounter; W18.39XA Other fall on same level, initial encounter; Y93.89 Activity, other specified; Y92.89 Other specified places as the place of occurrence of the external cause; Z79.899 Other long term (current) drug therapy; Z90.49 Acquired absence of other specified parts of digestive tract; Z88.8 Allergy status to other drugs, medicaments and biological substances; Z88.1 Allergy status to other antibiotic agents; Y99.8 Other external cause status; Z87.891 Personal history of nicotine dependence; Z03.818 Encounter for observation for suspected exposure to other biological agents ruled out
CPT/HCPCS: 10880

== ENCOUNTER 2020-03-13 15:36 | Inpatient (IN) | payer OTHER, MEDICARE ==
[~2020-03-13] VITALS: Ht 182.9 cm; Wt 71.1 kg
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
[~2020-03-13 15:36] MED LIST changes: +CHLORPROMAZINE25 M1 PO; +DIVALPROEX SOD500 M1 PO; +LORAZEPAM 0.50.5 MG PO; +OLANZAPINE ODT5 MG PO; +TRAZODONE 150150 M1 PO; +TRAZODONE HCL100 MG PO
[2020-03-13 15:41] VITALS: BP 161/92
[2020-03-13 16:02] LABS: ABSOLUTE NEUTROPHILS 2.5 thou/uL (1.4-8.2); BASOPHILS 0.8 % (0.0-2.0); EOSINOPHILS 5.6 % (0.0-3.0); HEMATOCRIT 35.3 % (42.0-52.0); HEMOGLOBIN 12.1 gm/dL (14.0-18.0); LYMPHOCYTES 18.8 % (24.0-44.0); MCH 31.1 pg (26.0-34.0); MCHC 34.3 g/dL (28.0-37.0); MCV 90.5 fL (80.0-100.0); MONOCYTES 8.8 % (1.0-8.0); PLATELET COUNT 123 thou/uL (150-400); RDW 13.6 % (10.5-14.5); WBC 3.8 thou/uL (4.0-11.0)
[2020-03-13 16:06] LABS: CALCIUM 8.6 mg/dL (8.5-10.1); POTASSIUM 3.9 mmol/L (3.5-5.1)
[2020-03-13] MEDS ORDERED: DEPAKOTE 250MG250 MG PO (16:11)
[2020-03-13 16:13] LABS: ALBUMIN 3.4 g/dL (3.4-5.0); DIRECT BILIRUBIN 0.1 mg/dL (<0.1-0.2); TOTAL BILIRUBIN 0.2 mg/dL (0.2-1.0); TOTAL PROTEIN 5.9 g/dL (6.4-8.2)
[2020-03-13] MEDS ORDERED: ESCITALOPRAM OX20 MG PO (16:13)
[2020-03-13] MEDS ORDERED: OLANZAPINE5 M1 PO (16:14)
[2020-03-13] MEDS ORDERED: MIDODRINE HCL 55 M1 PO (16:16)
[2020-03-13 16:18] LABS: URINE BILIRUBIN NEGATIVE (Negative); URINE BLOOD NEGATIVE (Negative); URINE CLARITY CLEAR; URINE COLOR YELLOW; URINE GLUCOSE-RANDOM* NEGATIVE (Negative); URINE KETONES TRACE (Negative); URINE LEUKOCYTES-REFLEX NEGATIVE (Negative); URINE NITRITE-REFLEX NEGATIVE (Negative); URINE PROTEIN (DIPSTICK) NEGATIVE (Negative); URINE SPECIFIC GRAVITY 1.025 (1.005-1.035); URINE UROBILINOGEN 0.2 E.U./dl (0.2-1.0)
[2020-03-13 16:33] LABS: AMP/METHAMP Negative (Negative); BARBITURATES Negative (Negative); BENZODIAZEPINES Negative (Negative); COCAINE Negative (Negative); METHADONE Negative (Negative); OPIATES Negative (Negative); PCP Negative (Negative)
[2020-03-13] MEDS ORDERED: CHLORPROMAZINE100 MG PO (20:18)
[2020-03-14] VITALS (7 sets, daily range): BP systolic 144–167; BP diastolic 82–104
--- NOTE | 2020-03-14 08:00 | EKG ---
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: jose : 1950 Requested By: Rupal Morales Order Number: [id number] MD: Timothy Dutta Measurements Intervals [place] Rate: 76 P: 31 DE: 172 QRS: -8 QRSD: 92 T: 33 QT: 402 QTc: 453 Interpretive Statements Sinus rhythm Probable left atrial enlargement Compared to ECG 01/11/2020 11:21:03 Sinus bradycardia no longer present Electronically Signed On 03-14-2020 8:00:13 CDT by Timothy Dutta [email or web address] <ELECTRONICALLY SIGNED> By: Timothy Dutta MD, [facility] 03/14/20 0800 1726 1726 Timothy Dutta MD, [facility] /EPI
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
[2020-03-15 07:05] LABS: % SATURATION 21 % (20-39); IRON 52 ug/dL (65-175); TIBC 248 ug/dL (250-450)
[2020-03-15 07:21] LABS: FOLIC ACID 11.4 ng/mL (8.6-58.9)
[2020-03-15 07:24] VITALS: BP 109/73
[2020-03-15 12:05] LABS: HEMATOCRIT 39.7 % (42.0-52.0); HEMOGLOBIN 13.2 gm/dL (14.0-18.0); MCH 30.5 pg (26.0-34.0); MCHC 33.2 g/dL (28.0-37.0); MCV 91.8 fL (80.0-100.0); RBC 4.32 mil/uL (4.50-6.00); RDW 13.8 % (10.5-14.5); WBC 5.7 thou/uL (4.0-11.0)
[2020-03-15 12:18] LABS: CALCIUM 9.1 mg/dL (8.5-10.1); CREATININE 0.9 mg/dL (0.7-1.3); PHOSPHORUS 3.4 mg/dL (2.5-4.9); POTASSIUM 4.2 mmol/L (3.5-5.1)
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
--- NOTE | 2020-03-15 14:33 | NUR ---
Sw completed the intake assessment and TP. Pt is a placement concern. It is unlikely [facility] will take him back. His level of agression, strength and impulsivity make him dangerous to himself and others. This is at least the 3rd correction that has evicted him. Hoepfully placement will be found in a timely fashion.
--- NOTE | 2020-03-15 15:36 | NUR ---
INCONTINENT OF LARGE LOOSE STOOL-REQUIRED ASSIST OF THREE TO CHANGE AND D/T AMOUNT OF STOOL SHOWER-STICKI NG HANDS IN BM AND SMEARING IT ON HERNANDES ON FLOORS-RESISTIVE WITH 1500 MEDICATIONS AND REQUIRES CRUSH MEDS WILL HOLD WHOLE PILLS IN MOUTH AND NOT SWALLOW.
--- NOTE | 2020-03-15 15:57 | NUR ---
Pt was unable to participate in group due to behaviors
--- NOTE | 2020-03-15 17:11 | NUR ---
Pt CURRENT BEHAVIORS PREVENT Pt FROM BEING A CANDIDATE FOR A P.T. EVALUATION AT THIS TIME. PLEASE RE-ORDER P.T. EVALUATION ONCE PT PSYCHIATRIC STATUS STABILIZES.
[2020-03-15 19:36] VITALS: BP 123/96
--- NOTE | 2020-03-16 03:56 | NUR ---
Pt was in the dayroom sitting on a berry chair at time of assessment. Pt was easily irritable but not as violent as has been reported. Pt took meds crushed in vaniila ice cream. After the second scoop, in which pt have taken all meds, pt voiced to "stop it" to nursing. Tremors noted. Pt was up for half of shift, having visual, hallucinations, tellnig nurse to grab the chicken knife to calve this chicken. Pt was also making hand gestures as if grabbing things from air. Pt incontient of bowel and bladder. No bm noted this shift. Briefs changed as needed. Pt currently in the dayroom, sleeping. Lap yevgeniy in place. Will continue to monitor. P
--- NOTE | 2020-03-16 07:20 | NUR ---
0700 ASSUMED CARE OF PATIENT, PATIENT IN DAYROOM SITTING QUIETLY WITH EYES CLOSED. PATIENT NOTED WITH YELLOW SHIRT ON, YELLOW SOCKS AND CHAIR ALARM IN PLACE. PATIENT IS A 1:1 AT THIS TIME. HABILITATION WORKER AT CHAIR SIDE. WILL CONTINUE TO OBSERVE.
[2020-03-16 07:40] VITALS: BP 142/99
--- NOTE | 2020-03-16 10:41 | NUR ---
0900 MEDICATIONS GIVEN CRUSHED IN PUDDING, TOLERATED WELL. THIN WATER GIVEN, PATIENT DRINKS FAST AND COUGHS AFTER DRINKING. WILL TALK TO FOR ST CONSULT. PATIENT TO BATHROOM X2 TO VOID WITH STANDBY ASSIST. PATIENT REQUESTS PHONE TO CALL . PATIENT COMMUNICATES WITH AND REMAINED CALM AT THAT TIME. PATIENT RESTING IN PATY CHAIR, WILL CONTINUE TO OBSERVE.
[2020-03-16 12:00] VITALS: BP 115/74; BP 122/77; BP 131/79
--- NOTE | 2020-03-16 12:10 | NUR ---
1200 PATIENT LYING IN GERICHAIR. ORTHO BP'S OBTAINED PER DR'S ORDER. LYING- BP 131/79 P 91, SITTING- BP 122/77 P 92, STANDING WITH ASSIST- BP 115/74 P 74 PATIENT STANDING FOR BP, PATIENT STATES "BP IS 60'S". PATIENT UNABLE TO REMAIN STANDING X 2 ASSIST, C/O WEAKNESS AND FEELING IF HE IS GOING TO PASS OUT. PATIENT FEELS LIGHT HEADEDNESS. PATIENT BACK TO [facility] AND SITS UP FOR LUNCH. DR HERRING NOTIFIED OF BP'S. BP MEDICATION NOT GIVEN AT NOON DOSE. WILL CONTINUE TO OBSERVE.
--- NOTE | 2020-03-16 15:06 | NUR ---
1430 PATIENT RESTING IN PATY CHAIR WITH INCREASED AGITATION AT TIMES. SCHEDULED PO MEDICATION GIVEN PO CRUSHED IN PUDDING. MEDICATION TAKEN WITHOUT DIFFICULTY. ENVIRONMENTAL MANAGEMENT SPECIALIST SPOKE WITH PATIENT AND PATIENT AGREES TO LAY BACK IN GERICHAIR TO RELAX. PATIENT CALM WITH ENVIRONMENTAL MANAGEMENT SPECIALIST AT THAT TIME
--- NOTE | 2020-03-16 16:00 | NUR ---
1550 PATIENT NOTED WITH INCREASED AGITATION AT THIS TIME. PATIENT PUSHING STAFF AWAY WITH CARE. PATIENT STATING "I WANT TO GO HOME". PATIENT UNSTEADY ON FEET AND ATTEMPTING TO REMOVE LAP JORGE LUIS. 1:1 WITH PATIENT. PATIENT PUSHES BUFFING MACHINE OPERATOR AND ASKS BUFFING MACHINE OPERATOR TO LEAVE AND COME BACK LATER. UNABLE TO CALM PATIENT DOWN PATIENT REFUSES SNACK OFFERED BY BUFFING MACHINE OPERATOR. THORAZINE 75MG IM GIVEN TO RIGHT BUTTOCKS. WITH ASSIST X3. WILL CONTINUE TO OBSERVE
[2020-03-16 17:00] VITALS: BP 157/76
--- NOTE | 2020-03-16 17:41 | NUR ---
PATIENT LAYING IN PATY CHAIR IN DAYROOM QUIETLY WITH EYES CLOSED. PATIENT REMAINS ON FALL RISK PROTOCOL WITH YELLOW SHIRT AND YELLOW SOCKS ON. 1:1 AT CHAIR SIDE. WILL CONTINUE TO OBSERVE.
[2020-03-16 19:34] VITALS: BP 163/120
--- NOTE | 2020-03-17 04:49 | NUR ---
Assumed care of pt @ 1900. Pt calm et cooperative at beginning of shift. Took medications crushed in yogurt without difficulty. Ambulates with assistance of staff et gait belt with slightly unsteady gait. B/P elevated even though midodrine was held X2 today on prior shift. All other VSWNL. Health assessment with no abnormalities noted at present time. Denies SI/HI but unsure if pt was completely cognizant of the questions asked. Pt does not demonstrate any signs or symptoms of acute emotional distress at present time. Pt was given PRN chlorpromazine due to severe agitation around 0100. Pt was restless in recliner in dayroom throughout the noc. Currently resting in recliner in dayroom with eyes closed. Will continue to monitor per protocol.
[2020-03-17 07:51] VITALS: BP 150/98
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
[2020-03-17 11:46] VITALS: BP 124/103; BP 130/73; BP 161/90
--- NOTE | 2020-03-17 12:19 | NUR ---
PATIENT REFUSING TO EAT LUNCH AT THIS TIME. PATIENT ASKS TO BE WOKEN UP IN AN HOUR OR TWO. PATIENT LAYS IN PATY CHAIR AND FALLS ASLEEP. WILL CONTINUE TO OBSERVE
[2020-03-17 19:39] VITALS: BP 141/85
--- NOTE | 2020-03-17 23:25 | NUR ---
Assumed care on 03/17/20 @ 19:15, seated in a berry chair with a 1:1 sitter present and attending patient. Cooperated with assessment, HRRR, Lungs CTA, ABD N x 4 Q. Denies pain and depression, acknowledges worry and anxiety. Seems to speak quickly and confirms that mind is racing. VS WNL, Ambulated to the toilet x2 with gait belt, ambulated back to the day room. Continent of bladder. Will continue to monitor 1:1, eyes closed, respirations even and unlabored at this time.
--- NOTE | 2020-03-18 06:20 | NUR ---
Slept 8.2 hours overnight.
[2020-03-18 07:16] VITALS: BP 164/101
--- NOTE | 2020-03-18 10:49 | NUR ---
0700 ASSUMED CARE OF PATIENT, PATIENT ASLEEP IN DAYROOM LAYING IN PATY CHAIR. 0900 PATIENT CONTINUES TO SLEEP. BUMP GRADER OPERATOR WAKES PATIENT, MEDICATIONS GIVEN CRUSHED IN APPLE SAUCE. PATIENT ATE 60% OF BREAKFAST AT THAT TIME. PATIENT DENIES PAIN. PATIENT CALLING OUT BROHTERS NAME, PATIENT DELUSIONAL AT TIMES. PATIENT RAISES ARMS IF GRABING FOR ITEMS OR THINGS HE BELIEVES ARE IN FRONT OF HIM. PATIENT REMAINS WITH EYES CLOSED. WILL CONTINUE TO OBSERVE
--- NOTE | 2020-03-18 11:11 | NUR ---
PIERCE recieved a call from [employer] [facility] informing that Pt was nursing, OT and Pt services with the company. They requested that if Pt was returning home to send a Redemption of care order at discharge for services to continue. PIERCE will need to call intake at [phone].
[2020-03-18 12:00] VITALS: BP 139/82
[2020-03-18 17:55] VITALS: BP 117/79
[2020-03-18 19:59] VITALS: BP 151/106
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
[2020-03-19] VITALS (7 sets, daily range): BP systolic 96–148; BP diastolic 62–103
--- NOTE | 2020-03-19 04:13 | NUR ---
PATIENT SLEEPING COMFORTABLY IN RECLINER IN DINING ROOM. PATIENT HAS BEEN CALM AND SLEEPING ALL NIGHT. DOES NOT APPEAR IN DISTRESS. RESPIRATIONS EVEN AND UNLABORED. CONTINUING TO MONITOR.
--- NOTE | 2020-03-20 04:31 | NUR ---
Assumed care of patient this pm shift. Patient sitting in reclining chair in the mileu. Patient denies pain. Patient denies hi/si. Patients affect is blunted. Patient is sleepy this evening. Patient is a falls risk and he is wearing the yellow shirt and yellow socks per policy. Patient ambulates with a walker and utilizes the gait belt as needed. Patient takes medications crushed in pudding and is medication adherent. Patients assessment shows clear breath sounds, active bowel sounds, and s1 s2 heard with auscultation. Patient did not voice any concerns this evening. We will continue to monitor per hospital policy.
[2020-03-20 07:22] VITALS: BP 142/86
--- NOTE | 2020-03-20 11:23 | NUR ---
PIERCE and Dr Blanc spoke with pt;s VAIBHAV Ruiz [phone] Blanc provided an update about meds and d/c plans. Sara is satisfied with this report
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
--- NOTE | 2020-03-20 15:56 | NUR ---
Sw attempted to meet with pt but he only responded with grunts.
--- NOTE | 2020-03-20 17:45 | NUR ---
Continues to keep his eyes closed throughout the day even though he is awake. At one time he got agitated when nurse attempted to take his blood pressure. He later allowed it to be taken. Sinemet was given around 1500 and Thorazine was delayed until after PT. Hewas asked several times if he needed to go to toilet and he replied No. He ate well for dinner being fed by staff. He was toileted/incontinent at time of ambulation with two staff around 1600. He was cleaned up and changed. Later given Thorazine to prevent lethargy during PT. He talked on the phone x 1. No SI/HI/AH/VH admitted. He relaxed after the Sinemet.
--- NOTE | 2020-03-20 18:30 | NUR ---
BP was not done orthostatically today due to lack of cooperation. BP checked pprior to Midodrine [id number]=354/61 and was at a time pt. was yelling. Therefore pt. was not given Midodrine.
[2020-03-20 20:41] VITALS: BP 177/108
[2020-03-20 21:15] VITALS: BP 160/89
--- NOTE | 2020-03-21 01:42 | NUR ---
PATIENT HAS BEEN SITTING UP IN RECLINER IN DINING ROOM TONIGHT. HE CONVERSES WHEN TALKED TOO AND IS ABLE TO ANSWER QUESTIONS. TONIGHT HE KEPT HIS EYES CLOSED WHEN HE TALKED. HE DENIES PAIN. HE TOOK HIS MEDS CRUSHED IN APPLESAUCE. PATIENT IS SITTING ON CHAIR ALARM MAT. HE HAS BEEN SLEEPING THRU THE NIGHT. NO AVH NOTED. WILL CONTINUE TO MONITOR.
--- NOTE | 2020-03-21 05:46 | NUR ---
PATIENT'S BP THIS AM IS 175/109. MIDODRINE HELD AND NOT GIVEN. CALLED HOSPITALIST DIRECTOR OF EXTENSION WORK, CHITO FOURNIER NP. ONE TIME ORDER FOR NORVASC 5MG PO GIVEN. WILL CONTINUE TO MONITOR.
[2020-03-21 05:50] VITALS: BP 174/109
[2020-03-21 07:27] VITALS: BP 150/90
--- NOTE | 2020-03-21 08:57 | NUR ---
RT Progress Note- Since Nicola's admission, his participation in recreation therapy has been extremely limited d/t level of alertness. He does respond to music and will sing along. He was also able to participate in ball kick group. Overall when spoken to, Nicola responds in grunts or nonsensical speach.
[2020-03-21 11:24] VITALS: BP 150/90
--- NOTE | 2020-03-21 13:47 | NUR ---
PATIENT WAS UP, SITTING IN DAY ROOM WHEN CARE ASSUMED. PATIENT WAS COUGHING DURING BREAKFAST, CHEST X-RAY DONE PER DR. DILL'S ORDER, AND PATIENT IS TO BE NPO UNTIL X-RAY IS REVIEWED. CHEST X-RAY COMPLETED, RESULT REVIEWED BY DR. KIM, NPO ORDER COMPLETED, PATIENT IS NOW ON PUREED, AND NECTAR THINK DIET. ALL MORNING MEDICATION GIVEN, CRUSHED IN YOGOURT, WELL TOLERTED. NOON MADODRINE HELD DUE TO BLOOD PRESSURE 143/91. PATIENT TOOK A LONG NAP, NOW AWAKE, TOLERATED PUREED DIET WELL. PATIENT DENIES SUICIDAL/HOMICIDAL IDEATION, NOT ABLE TO APPROPRIATELY RESPOND TO FURTHER ASSESSMENT QUESTIONS DUE TO COGNITIVE IMPAIRMENT. PATIENT REMAIN ON 1:1 FOR IMPOUSIVE BEHAVIOR, AND FALL RISK, SITTING AT HIS SIDE. AFFECT IS FLAT/BLUNTED, MOOD IS SAD, AND DEPRESSED. NO SIGN OF ACUTE DISTRESS NOTED AT THIS TIME, WILL MONITOR FOR SAFETY.
[2020-03-21 19:17] VITALS: BP 130/91
--- NOTE | 2020-03-22 02:35 | NUR ---
Care of patient assumed at 1915. Patient is asleep in a recliner in the day room. Awakens enough to accept HS medications when delivered. Assessment completed at this time. Oriented to self only. Lethargic. Slurred speech. HS, LS, BS normal. Denies pain. Patient falls asleep as the interview is completed. Patient continues sleeping through the night. Woken twice to encourage toileting, which he declines.
[2020-03-22 06:39] VITALS: BP 147/80
[2020-03-22 07:30] VITALS: BP 153/94
--- NOTE | 2020-03-22 12:14 | NUR ---
PIERCE and Dr Blanc called and spoke chiki Ruiz and provided an update. Sara is satisfied with the report. She understands that this pt is no longer ambulatory and is on a nectar thick diet. She would like to see if [facility] would be interested in taking him back, otherwise this worker will start a new referral to other LTC on Wednesday.
[2020-03-22 13:03] VITALS: BP 153/94
--- NOTE | 2020-03-22 13:15 | NUR ---
PATIENT WAS SITTING IN A RECLINER IN DAYROOM WHEN CARE ASSUMED, PATIENT WAS AROUSABLE, AND ABLE TO TAKE MORNING MEDICATION CURSHED IN PUDDING. PATIENT CHOOSE NOT TO EAT BREAKFAST, ATE ENSURE PUDDING, AND YOGOURT. HE WENT BACK TO SLEEP THEREFTER. LCTA, RESP EVEN/UNLABORED, NO SOA/CYANOSIS NOTED. BS+X4, ABD SOFT, NON-TENDER TO TOUCH. PATIENT REMAIN ALERT TO SELF , FORGETFUL, AND CONFUSED. NOT ABLE TO APPROPRIATELY RESPOND TO ASSESSMENT QUESTIONS DUE TO COGNITIVE IMPAIRMENT. AFFECT IS FLAT, MOOD IS CALM, MEDICATION, AND CARE COMPLIANT. NO SIGN OF ACUTE DITRESS NOTED, ALL FALL PRECAUTIONS IN PLACE, WILL MONITOR FOR SAFETY.
[2020-03-22 20:04] VITALS: BP 130/100
[2020-03-22 20:52] LABS: HEMATOCRIT 39.3 % (42.0-52.0); HEMOGLOBIN 13.3 gm/dL (14.0-18.0); MCH 30.6 pg (26.0-34.0); MCHC 33.7 g/dL (28.0-37.0); MCV 90.8 fL (80.0-100.0); PLATELET COUNT 170 thou/uL (150-400); RBC 4.32 mil/uL (4.50-6.00); RDW 13.2 % (10.5-14.5); WBC 5.2 thou/uL (4.0-11.0)
[2020-03-22 21:04] LABS: CALCIUM 9.2 mg/dL (8.5-10.1); POTASSIUM 4.4 mmol/L (3.5-5.1)
[2020-03-22 22:04] LABS: ABSOLUTE NEUTROPHILS 4.2 thou/uL (1.4-8.2); ANISOCYTOSIS 1+
--- NOTE | 2020-03-23 04:38 | NUR ---
Assumed care of pt @ 1900. Pt calm et cooperative this shift with only a few verbal outbursts. Took medication half crushed in yogurt without difficulty. Ambulates with assistance of berry-chair at present time. VSWNL. Health assessment with no abnormalities noted at present time. Unable to assess SI/HI due to cognitive deficit but pt does not demonstrate any signs or symptoms of acute emotional distress at present time. Currently resting in recliner in dayroom with eyes closed. Will continue to monitor per protocol.
[2020-03-23 07:49] VITALS: BP 163/102
--- NOTE | 2020-03-23 10:45 | NUR ---
Assumed care 0700. Somnolent. On 1 to 1 observation. Several attempts to awaken him without success. resirateions even, unlabored. Skipped breakfast.
--- NOTE | 2020-03-23 18:00 | NUR ---
Patient was somnolent until about 1130 when woke up, talking to staff when spoken to with eyes closed. Was fed lunch, tolerating it well. Hence 0900 meds were late due to somnolence. 1500 meds were staggered given lated. Later in shift toileted having a BM-LBM=8-1-20. Continues to lean head to the right in the chair. At times complains he has pain when staff tries to assist him in holding his head more upright. 1 to 1 was discontinued with lap yevgeniy moved to the front of patient in recliner. He did nottry to get out of chair. He very slowly takes his meds crushed in pudding or yogurt and takes a long time to swallow, pocketing his meds.
[2020-03-23 19:28] VITALS: BP 121/76
--- NOTE | 2020-03-24 04:22 | NUR ---
Assumed care of pt @ 1900. Pt calm et cooperative this shift. Took medication crushed in yogurt withour difficulty. Ambulates with assistance of berry-chair. Pt has been leaning towards the right et when attempted to reposition, the pt cries out in pain. Needs to be assessed for possible risk of contracture. VSWNL. Health assessment with no abnormalities noted at present time. Unable to assess SI/HI due to cognitive deficit. Currently resting in recliner with eyes closed. Will continue to monitor per protocol.
[2020-03-24 07:44] VITALS: BP 118/76
--- NOTE | 2020-03-24 13:40 | NUR ---
Assumed care 0700. Difficult to wake up though in the recliner. Ate a few bites for breakfast--not awake to continue. Patient not able to take all of his crushed meds due to spitting some out. It was difficult to tell which of the meds he spit out. Miralax was held due to slot shift supervisor reporing he had several incontinent stools-not diarrheal stools during the night. Seen by PATIENT TRANSPORTER and Hospitalist. Put to bed with urinal in place several times. Pt. would dislodge the new clean urinal. Then had incontinent large amount of urine and dark green formed stool around 1320. Lunch was unsuccessful. Even though he was awake and occasionally opening his eyes he was choking no matter what food/nectar thick liquid was tried and with the head of his bed elevated.
[2020-03-24 17:39] LABS: CALCIUM 8.7 mg/dL (8.5-10.1); POTASSIUM 4.6 mmol/L (3.5-5.1)
--- NOTE | 2020-03-24 17:55 | NUR ---
Starting to wake up some around noon wwith eyes at slits. This AM temp. rechecked after AM VS=Temporal=99.2, oral=98.2, XT=738/88 p=101. Hospitalist informed of conversation in play to discuss Hospice next week. Blood of CMP and Ammonia was drawn this afternoon. He had a 2nd form incontinent BM = urine. He kept moving urinal our of place when staff were attempting to get UA from him. He had a couple bites of applesauce for dinner. He is starting to speak a few words and open eyes more. He has been turned to prevent skin breakdown and hs not tried to get out of bed, nor has he been belligerent. 4 side rail up with bed alarm on. He takes off his gown and top sheet, wads them up. He asked for underwear when UA obtainment was being attempted.
[2020-03-24 19:44] VITALS: BP 152/98
--- NOTE | 2020-03-25 03:30 | NUR ---
Assumed care on 03/24/20, in bed with eyes closed. Awakens to touch, oriented to person only, able to report full name. Does not open eyes, even when speaking. HRRR, Lungs CTA, ABD Nx4Q. As per Song Shearer N.P. held depakote due to drowsyness. Noted to hold head tilted to the right on his pillow. When straightening head, winces and says ouch. Bed in low position, bed alarm set, will continue to monitor as per protocol.
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
[2020-03-25 07:26] VITALS: BP 154/88
[2020-03-25 11:00] VITALS: BP 154/88
--- NOTE | 2020-03-25 11:14 | NUR ---
ASSUMED CARE AT 0700 THIS MORNING. HE IS SITTING IN A RECLINING CHAIR, LEANING TO THE RIGHT SIDE. ATTEMPTED TO SET HIM UP, BUT HE C/O THAT HURT HIM.HE TOOK HIS MEDICATIONS CRUSHED AND IN YOGURT. HIS CHLORPROMAZINE WAS REORDERED. THIS TOO WAS CRUSHED AND PUT IN PUDDING. HE TOOK ALL WITHOUT DIFFICULTY. HE HAS BEEN CALM THIS MORNING. NO ACTING OUT NOTED THIS MORNING. ATE BREAKFAST.
[2020-03-25 19:43] VITALS: BP 144/85
--- NOTE | 2020-03-26 01:18 | NUR ---
Care of patient assumed at 1915. Patient is sleeping in a recliner in the day room. Able to wake patient enough at 2100 for him to take medications crushed and mixed in pudding. Patient returns to sleep immediately after. HS, LS, BS assessed as normal. Patient continues sleeping in recliner up to this point in the shift.
[2020-03-26 07:09] LABS: CALCIUM 9.2 mg/dL (8.5-10.1); POTASSIUM 4.4 mmol/L (3.5-5.1)
--- NOTE | 2020-03-26 07:30 | NUR ---
PT SITTING OUT IN DINING ROOM. PT HAS HEAD TURNED TO RT SIDE. PT HAS COURSE LUNG SOUNDS, NO COUGH. NO EDEMA TO LE. PT DOES TALK TO STAFF WHEN SPOKEN TOO. PT NEEDS THICKENED LIQUIDS AND NEEDS ASSISTANCE WITH FEEDING.
[2020-03-26 07:31] VITALS: BP 135/78
[2020-03-26 09:00] VITALS: BP 135/78
--- NOTE | 2020-03-26 12:25 | NUR ---
Jeremiah called and spoke with Hari about the hospice referral. He stated that he had spoken with Dr Blanc and as a family they want hopsice in the home. He also wanted to have choices, so JEREMIAH sent referral to [facility] per his request. Jeremiah provided educztion about hsopcie servcies.
--- NOTE | 2020-03-26 14:00 | NUR ---
PT DID HAVE SOME ICE CREAM. PT GARGLING AFTER AND COUGHING. VOICE IS NOT CLEAR.
--- NOTE | 2020-03-26 14:33 | NUR ---
PIERCE spoke with [facility]- both are speaking with Hari today and he will choose 1. hospice stated that they can admit this pt in the home at 6pm tomorrow if Hari chooses them tonight.
--- NOTE | 2020-03-26 15:02 | NUR ---
PT LOUNGING IN PATY CHAIR. PT STILL HAS EYES CLOSED. PT MOVES ARMS AND LEGS SPONTANEOUSLY. PT TALKED TO SON AND DAUGHTER ON PHONE TODAY. PT DOES HAVE SOME JERKING TO EXT AT TIMES.
--- NOTE | 2020-03-26 15:55 | NUR ---
SW spoke with hospice and family has chosen them. D/C will be tomorrow around 5pm so they can get the home ready for admission.
--- NOTE | 2020-03-26 17:16 | NUR ---
PT HAS EYES OPEN AND SITTING IN RECLINER CHAIR. PT WRINGING ON BLANKET. PT EATING MAGIC ICE CREAM AND STARTED GARGLING AND VOICE IS NOT CLEAR. PT STILL HAS HEAD TILTED TO RT SIDE.
[2020-03-26 19:38] VITALS: BP 150/100
--- NOTE | 2020-03-27 04:09 | NUR ---
Care of patient assumed at 1915. Patient is sleeping in bed. Does not respond to verbal prompts. Does not wake to physical stimuli. HS, LS, BS assessed. HS Normal, BS acrive x 4, LS coarse with stridor present. Patient sleeps until 0115, then is brought out to day room as he becomes restless. Patient sits in recliner and falls asleep.
[2020-03-27 07:53] VITALS: BP 140/85
--- NOTE | 2020-03-27 11:12 | NUR ---
Assumed care 0700. Initially sitting in the recliner, talking, occasionally making understood words. Took off blue pants, giving no reason. Assisted to put them on. Throwing things on floor. Uncooperative with assisting/being fed breakfast. Grabbing at staff, talking nonsensical. becoming more agitated. Given Lorazepam SL PRN 0902 and Thorazine 75 mg IM left deltoid for increased agitation after checking with Dr. Blanc. He eventally slowed down and started sleeping.
--- NOTE | 2020-03-27 14:19 | NUR ---
Has been sleeping with a few times of waking enough to mutter unclearly. Took only a couple bites of pureed food then declined more. Had a couple of choking episodes. Resting/sleeping in recliner. Legs are flexed in recliner. Pant legs are raised to shorts height.
[2020-03-27] MEDS ORDERED: Atropine 1% Eye Drop SUBLING (15:02)
[2020-03-27] MEDS ORDERED: Transderm-Scop 1MG/7 TRANSDERM (15:03)
[2020-03-27] MEDS ORDERED: MSL20MG/ML SUBLING ×2 (15:04→15:05)
[2020-03-27] MEDS ORDERED: CHLORPROMA25 MG/1 ML IM (15:04)
--- NOTE | 2020-03-27 17:12 | NUR ---
Patient discharged to his home with belongings. He was accompanied by two transporters at 1714. He was cleaned up, in his street clothes-shirt and shorts. Prescriptions and discharge prescriptions in packet. Hospice rehabilitation therapy aide nurse was called with no response yet. Pharmacy was called because the first dose in AM of Ativan did not require witness of wastage, however this nurse had Marika Rivas witness wastage. Pharmacy stated that the correct dose was charted on the eMAR.
--- NOTE | 2020-03-27 18:50 | NUR ---
Late note: Hospice nurse institution director returned call and did not need any further report they had enough information. She was informed RX's were in packet sent with the patient. Phone consent re: discharge and Medicare concerns obtained from VAIBHAV Flood.
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
== END 2020-03-27 17:14 | disposition hospice, home (50) | DRG 57 ==
LOC: ER 15:36 → SBH 03-14 10:14 → EROBS 03-14 10:14 → SBH 03-14 10:31
PROVIDERS: Emergency Medicine; Hospitalist; Internal Medicine; Nurse Practitioner Psychiatric/Mental Health; ADMIT Psychiatry & Neurology Psychiatry; ATTEND Psychiatry & Neurology Psychiatry
DX: G20 Parkinson's disease (principal); F01.51 Vascular dementia, unspecified severity, with behavioral disturbance; F02.81 Dementia in other diseases classified elsewhere, unspecified severity, with behavioral disturbance; E87.0 Hyperosmolality and hypernatremia; F23 Brief psychotic disorder; R62.7 Adult failure to thrive; E86.0 Dehydration; N40.0 Benign prostatic hyperplasia without lower urinary tract symptoms; R13.10 Dysphagia, unspecified; I10 Essential (primary) hypertension; D64.9 Anemia, unspecified; Z51.5 Encounter for palliative care; Z68.21 Body mass index [BMI] 21.0-21.9, adult; Z79.899 Other long term (current) drug therapy; Z88.8 Allergy status to other drugs, medicaments and biological substances; Z03.818 Encounter for observation for suspected exposure to other biological agents ruled out
CPT/HCPCS: 10880